=== PATIENT | male | born 1950 | race Caucasian/White ===

== ENCOUNTER 2017-02-13 22:02 | Emergency (ER) | payer OTHER ==
[~2017-02-13] VITALS: Ht 188 cm; Wt 108.0 kg
[2017-02-13 22:11] VITALS: TEMP 36.7; Ht 188 cm; Wt 108.0 kg
[2017-02-13] MEDS ORDERED: IBUPROFEN 800 MG TAB PO STA (22:37)
[2017-02-13] MEDS ORDERED: DEXAMETHASONE SOD INJ 10 MG/ML VIAL PO ONE (22:45)
[2017-02-13] MEDS ORDERED: LEVO75TA PO (23:13)
--- NOTE | 2017-02-13 23:14 | EMERGENCY ROOM VISIT NOTE ---
History Report prepared by Kenyetta: Jahaira Willard Under the Supervision of: Dr. Baldev Marroquin M.D. First contact with patient: 22:17 Chief Complaint: BACK PAIN Stated Complaint: BACK PAIN, LEFT LEG NUMB History of Present Illness The patient is a 66 year old male who presents to the Emergency Room with complaints of worsening back pain that started earlier today. The patient rates his pain a 7/10 in severity. He states he has a history of back pain but he thought it was getting better. The patient states he was doing normal every day activities and he felt the pain coming on. He notes the pain kept getting worse throughout the day. He has an appointment with Dr. Burton Monday. The patient states he stretches and does an inversion exercise every day. He notes that he had cataract surgery on his left eye last Monday02/07/17 and on his right eye 01/08/17. Ever since the surgery, he has stopped doing the inversion exercises. The patient states that the pain extended down his leg and wrapped around to his left testicle. He notes "it feels like someone punched me in the testicles". He reports that his left leg feels weak and numb. Whenever he wants to walk somewhere, he has to get on his hands and knees because he is unable to walk secondary to the numbness of his left leg. The patient states he has not taken any medication for his pain. He denies any urine or bowel changes. Source of History: patient Onset: earlier today Position: back Symptom Intensity: 7/10 Timing: worsening Associated Symptoms: + weakness, + numbness, No diarrhea, No urinary symptoms Review of Systems See HPI for pertinent positives and negatives. A total of ten systems were reviewed and were otherwise negative. Family History No pertinent family history Social History Smoking Status: Never Smoker Alcohol Use: occasionally Marital Status: single Housing Status: lives alone Current/Historical Medications Scheduled Alendronate/Cholecalciferol (Fosamax+D 70MG/2800 Iu), 1 TABLET PO WK Cyanocobalamin (Vitamin B-12 1000 Mcg), 1,000 MCG PO DAILY Levothyroxine Sodium (Synthroid), 75 MCG PO DAILY Scheduled PRN Ibuprofen Tab (Motrin), 800 MG PO Q8H PRN for Pain Allergies Coded Allergies: No Known Allergies (Unverified , 02/13/17) Physical Exam Vital Signs Date Time Temp Pulse Resp B/P (MAP) Pulse Ox O2 Delivery O2 Flow Rate FiO2 02/14/17 01:39 89 18 144/76 93 Room Air 02/13/17 22:11 36.7 90 18 203/92 97 Room Air Physical Exam GENERAL: Awake, alert, well-appearing, in no distress HENT: Normocephalic, atraumatic. Oropharynx unremarkable. EYES: Normal conjunctiva. Sclera non-icteric. NECK: Supple. No nuchal rigidity. FROM. No JVD. RESPIRATORY: Clear to auscultation. CARDIAC: Regular rate, normal rhythm. Extremities warm and well perfused. Pulses equal. ABDOMEN: Soft, non-distended. No tenderness to palpation. No rebound or guarding. No masses. RECTAL: deferred MUSCULOSKELETAL: Chest examination reveals no tenderness. Mild tenderness to left lumbar area with radiation distally in sciatic distribution. No joint edema. LOWER EXTREMITIES: 5/5 strength and SILT in bilateral lower extremities including 5/5 strength L5, great toe. NEURO: Normal sensorium. No sensory or motor deficits noted. SKIN: No rash or jaundice noted. : No testicular pain on palpation. Likely hydrocele in right scrotum, which transilluminates. Cremaster intact. No hernias. Medical Decision & Procedures ER Provider Diagnostic Interpretation: STATrad: Preliminary Findings Only See Final Report For Complete Findings MRI L SPINE : Comparison: None Impression: No acute fracture or dislocation. Mild multilevel canal stenosis secondary to posterior disc bulges and facet arthropathy/ligamentous hypertrophy. Left L3-L4, left foraminal disc bulge causes moderate left foraminal narrowing. Disc/osteophytes and facet arthropathy/ligamentous hypertrophy cause mild foraminal narrowings at other levels. Annular fissure at L4-L5. Comment: Vertebral bodies are normal in height and alignment. Moderate intervertebral disc space narrowing at L5-S1 Degenerative endplate changes and posterior disc/osteophyte complex at L5-S1. Conus ends at L1. Heterogeneity of marrow signal with small likely hemangiomas. Medications Administered Medications (Trade) Dose Ordered Sig/Moisés Route Start Time Stop Time Status Last Admin Dose Admin Ibuprofen (Motrin Tab) 800 mg NOW STAT PO 02/13/17 22:37 02/13/17 22:39 DC 02/13/17 22:45 800 MG Dexamethasone Sodium Phosphate (Decadron Inj) 10 mg NOW ONCE PO 02/13/17 22:45 02/13/17 22:46 DC 02/13/17 22:47 10 MG ED Course 2216: The patient was evaluated in room C3. A complete history and physical exam was performed. 2236: Ibuprofen 800 mg PO. 2244: Decadron Inj 10 mg PO. 3: I reassessed the patient. He states that he lost balance in the bathroom and "lowered himself to the ground". He notes that he was able to get himself back up. 226: I reevaluated the patient. Discussed results and discharge instructions: He verbalized understanding and agreement. The patient is ready for discharge. Medical Decision I reviewed the patient's past medical history, medications, and the nursing notes as described above. Differential diagnosis includes but is not limited to: lumbar sacral radiculopathy, muscular strain, soft tissue injury. The patient is a 66 y/o gentleman with a pmhx of chronic back pain, followed by spine, Dr. Burton who presents to the ED with worsening of his chronic lumbar pain with radiation of pain and numbness to his left leg. Denies bowel incontinence or bladder retention. Patient drank 2 beers prior to coming to ED to calm his anxiety about going to the hospital and since feels his pain has improved. On exam the patient has mild left lumbar ttp with extension distally in the sciatic distribution. 5/5 stength and SILT BLE. L5 intact with 5/5 strength great toe. exam with right hydrocoele, which transilluminates and otherwise testicles/epididymis nttp. Cremaster intact. Initial plan for pain control and plan for d/c however then patient reported to RN that he walked to the bathroom and forgot that is leg hurt/felt numb and fell to the ground but in a controlled manner and denies hitting his head. I recommend to patient we perform and head and cspine CT given his intoxication however patient refused adamant that he did not hit his head. Given the patient did not have any new signs of trauma and patient with capacity despite intoxication CT deferred. However, given patient's fall and report of weakness MRI ordered. Prelim STATrad read shows mild multilevel canal stenosis secondary to posterior disc bulges and facet arthropathy/ligamentous hypertrophy. Patient feeling improved. Findings and plan for follow-up reviewed with patient. Patient agreeable and d/c 'd per discharge instructions. Medication Reconcilliation Current Medication List: was personally reviewed by me Blood Pressure Screening Patient's blood pressure: Elevated blood pressure Blood pressure disposition: Elevated BP felt to be situational Impression Primary Impression: Radiculopathy of lumbar region Scribe Attestation The scribe's documentation has been prepared under my direction and personally reviewed by me in its entirety. I confirm that the note above accurately reflects all work, treatment, procedures, and medical decision making performed by me. Departure Information Dispostion Home / Self-Care Prescriptions Ibuprofen Tab (MOTRIN) 800 Mg Tab 800 MG PO Q8H Y for Pain for 7 Days, #21 TAB Prov: Baldev Marroquin M.D. 02/14/17 Referrals Gaston Walsh M.D. (PCP) Patient Instructions Lumbar Radiculopathy, My [facility] Additional Instructions Please follow up with your automotive parts specialist, Dr. Burton, as scheduled on Monday for re-evaluation. Otherwise, your exam and MRI did not show signs of an emergent condition at this time. Ibuprofen for pain as directed. Heating pad at 20 minute intervals throughout the day for muscle relaxation. Modifying your physical activity as your symptoms allow. Return to the emergency department for worsening symptoms as described in the accompanying instructions.
[2017-02-13] MEDS ORDERED: CYAN10004 PO (23:17)
[2017-02-13] MEDS ORDERED: FSMD/70 PO (23:17)
[2017-02-14 01:39] VITALS: BP 144/76; PULSE 89; O2SAT 93
[2017-02-14] MEDS ORDERED: IBUP-1451 PO (02:18)
--- NOTE | 2017-02-14 08:07 | DIAGNOSTIC IMAGING REPORT ---
MRI OF THE LUMBAR SPINE WITHOUT IV CONTRAST CLINICAL HISTORY: Chronic low back pain. Left lower extremity radiculopathy. COMPARISON STUDY: No priors. TECHNIQUE: MRI of the lumbar spine is performed utilizing various T1 and T2-weighted sequences in the axial and sagittal planes. IV contrast was not administered for this examination. FINDINGS: Lumbar spine: Vertebral body height and alignment are maintained throughout the lumbar spine. Marrow signal intensity is heterogeneous. There is straightening of the lumbar lordosis. No evidence of spondylolysis is seen. The transverse and spinous processes are intact as visualized. No destructive bony lesion is identified. Advanced chronic degenerative endplate change is seen at L5-S1. Mild chronic degenerative endplate change is seen at the remaining lumbar levels. No significant endplate edema is identified. Small anterior osteophytes are observed. Intervertebral discs: Degenerative disc desiccation is seen throughout the lumbar spine. Advanced loss of height is seen at L5-S1. Spinal cord: The partially imaged spinal cord is normal in morphology and signal intensity. The conus medullaris terminates at the T12-L1 interspace. The nerve roots of the cauda equina are normal in morphology. L1-L2: Unremarkable. L2-L3: Unremarkable. L3-L4: There is a lateral disc extrusion on the left. This obliterates the left neural foramen and impinges on the exiting left L3 nerve root. There is minimal central canal narrowing at this level with a minimum AP diameter of 9 mm. The right neural foramen is patent. L4-L5: There is minimal posterior disc bulge with annular fissure. This causes minimal acquired compromise of the central canal. The minimum AP diameter measures 8.5 mm. There is minimal subarticular stenosis. The neural foramina are patent. L5-S1: There is minimal disc bulge. There is no significant acquired compromise of the central canal. There is bilateral subarticular stenosis, with probable impingement on the exiting right L5 nerve root. Sacrum: Visualized sacrum is normal in morphology and signal intensity. Soft tissues: The paraspinous soft tissues are within normal limits. The partially imaged retroperitoneal structures are grossly unremarkable but incompletely assessed. IMPRESSION: 1. There is a left lateral disc extrusion at L3-L4 which obliterates the left neural foramen and impinges on the exiting left L3 nerve root. 2. Lumbosacral spondylosis at additional levels as detailed above. See discussion for level by level analysis. 3. Degenerative disc disease and chronic endplate change as above. No destructive bony lesion is seen. Dictated: 02/14/2017 7:00 AM Transcribed: 02/14/2017 8:07 AM [email or web address] Electronically signed by: Jarad Hunter M.D. 02/14/2017 8:14 AM Dictated Date/Time: 02/14/2017 7:00 AM
== END 2017-02-14 02:32 | disposition home or self-care (01) ==
LOC: C.EDB 22:04 → C.EDC 02-14 02:32
DX: M54.16 Radiculopathy, lumbar region (principal); G89.29 Other chronic pain; R03.0 Elevated blood-pressure reading, without diagnosis of hypertension

== ENCOUNTER → 2017-11-17 | Outpatient (CLI) | payer OTHER ==
[~2017-11-17] MED LIST: CYAN10004 PO; FSMD/70 PO; LEVO75TA PO
--- NOTE | 2017-11-17 15:59 | DIAGNOSTIC IMAGING REPORT ---
ULTRASOUND TESTES AND SCROTUM CLINICAL HISTORY: Scrotal pain. COMPARISON STUDY: No priors. TECHNIQUE: Real-time, grayscale, and color Doppler sonography of the testes and scrotum is performed. Images are reviewed in the transverse and longitudinal planes. FINDINGS: The testes are normal in size and homogeneous in echotexture. The right testis measures 4.8 x 2.4 x 2.9 cm and the left testis measures 4.3 x 2.3 x 3.1 cm. No intratesticular mass is seen. Scattered microliths are incidentally noted. Testicular blood flow is normal and symmetric. Normal Doppler waveforms are identified in both testes. The epididymal heads are normal in appearance. The right epididymal head measures 1.3 cm in length and the left epididymal head measures 2.0 cm in length. There are large bilateral epididymal head cysts. The largest on the left measures up to 2.8 cm and the largest on the right measures up to 1.6 cm. There is a large right-sided hydrocele with an estimated volume of 172 cc. This measures up to 9 cm. No left-sided hydrocele or varicocele is seen. A reducible fat-containing inguinal hernia is seen on the right. IMPRESSION: 1. No acute abnormality is identified. 2. Large right-sided hydrocele. 3. There are large bilateral epididymal head cysts. 4. There is a fat-containing right inguinal hernia. Electronically signed by: Jarad Hunter M.D. 11/17/2017 3:57 PM Dictated Date/Time: 11/17/2017 3:55 PM
== END | disposition home or self-care (01) ==
LOC: C.ULTRBC 14:46
PROVIDERS: ATTEND Urology
DX: N50.89 Other specified disorders of the male genital organs (principal)

== ENCOUNTER 2018-09-03 10:07 | Inpatient (IN) ==
--- NOTE | 2018-08-24 09:31 | Anesthesiology Consultation ---
Date of Service August 24, 2018 Assessment & Plan (1) Encounter for pre-operative examination: Chart Review Chart Review: Acceptable Risk for Surgery and Patient NOT seen in Pre Admission Testing Consults Requested none History Surgery Operation Date: 09/03/18 11:35 Proposed Procedures p L3-S1 Decompression and Fusion, Spinal Cord Monitoring - Alan Burton DO Height/Weight Height: 6 ft 2 in Weight: 104.326 kg Allergies Allergy/AdvReac Type Severity Reaction Status Date / Time No Known Allergies Allergy Unverified 08/14/18 10:21 Medications Home Medications Medication Instructions Recorded Confirmed Last Taken 5-hydroxytryptophan (5-HTP) [5-HTP] 100 mg PO DAILY 08/14/18 08/14/18 Unknown Jegbog-L-Avszmgftx 1 dose PO DAILY 08/14/18 08/14/18 Unknown Fish Oil 1 dose PO DAILY 08/14/18 08/14/18 Unknown Magalie 1 dose PO DAILY 08/14/18 08/14/18 Unknown Probiotic 1 dose PO DAILY 08/14/18 08/14/18 Unknown Vitamin D3 1 dose PO DAILY 08/14/18 08/14/18 Unknown alprazolam [Xanax] 0.25 mg PO QAM 08/14/18 08/14/18 Unknown coQ10 (ubiquinol) 200 mg PO QPM 08/14/18 08/14/18 Unknown cyanocobalamin (vitamin B-12) 1,000 mcg PO DAILY 08/14/18 08/14/18 Unknown gemfibrozil 600 mg PO BID 08/14/18 08/14/18 Unknown ginkgo biloba 1 dose PO DAILY 08/14/18 08/14/18 Unknown levothyroxine [Synthroid] 50 mcg PO QAM 08/14/18 08/14/18 Unknown magnesium 1 dose PO QAM 08/14/18 08/14/18 Unknown vitamin B complex-folic acid 1 dose PO DAILY 08/14/18 08/14/18 Unknown Social History Smoking Status: Never smoker Do You Dip or Chew Tobacco: No Hx Alcohol Use: Yes Alcohol type: beer alcohol intake frequency: 0-2 drinks per day Hx Substance Use: No substance use type: does not use Testing Electrocardiogram Date: 08/16/18 Findings: + NSR @ (rate 84) and + NSST changes Laboratory Results 08/07/18: WBC 5.0, HGB,15.4, HCT 45.9, PLT 231 Sodium 142, Potassium 4.2, Chloride 106, C02 28 BUN 20, Corporate Development Intern 1.1
[~2018-09-03 10:07] MED LIST changes: +ACETAMINOPHEN 500 MG TAB PO SCH; +CEFAZOLIN 2000MG 2,000 MG/15 ML SYR IV SCH; -CYAN10004 PO; +CeleBREX 200 MG CAP PO SCH; -FSMD/70 PO; +GABAPENTIN 300 MG PO SCH; +HYDROmorphone INJ 2 MG/ML SYR/VIAL ONE; -LEVO75TA PO; +MIDAZOLAM HCL 1 MG/ML 2ML VIAL ONE; +fentaNYL citrate 100 MCG/2 ML VIAL ONE
--- NOTE | 2018-09-03 10:44 | History & Physical Bridge Note ---
Date of Service September 03, 2018 History & Physical Bridge Note I have examined the patient, reviewed the History & Physical and in the interval since the performance of the History & Physical I have noted the following changes of clinical significance: no changes noted
--- NOTE | 2018-09-03 10:45 | History & Physical Report ---
Date of Service September 03, 2018 Assessment & Plan (1) Spinal stenosis, lumbar region with neurogenic claudication: L3-S1 decompression and fusion Present on Admission?: Yes History of Present Illness Chief Complaint: Back and leg pain Primary Care Provider: Gaston Walsh This is a 60-year-old male who presents with chronic persistent back and bilateral leg pain. After failing extensive course of nonoperative care is here for surgical intervention. Allergies Allergy/AdvReac Type Severity Reaction Status Date / Time No Known Allergies Allergy Unverified 08/14/18 10:21 Home Medications Home Medications Medication Instructions Recorded Confirmed Type 5-hydroxytryptophan (5-HTP) [5-HTP] 100 mg PO DAILY 08/14/18 08/14/18 History Mfvgyn-E-Lsvdawshc 1 dose PO DAILY 08/14/18 08/14/18 History Fish Oil 1 dose PO DAILY 08/14/18 08/14/18 History Magalie 1 dose PO DAILY 08/14/18 08/14/18 History Probiotic 1 dose PO DAILY 08/14/18 08/14/18 History Vitamin D3 1 dose PO DAILY 08/14/18 08/14/18 History alprazolam [Xanax] 0.25 mg PO QAM 08/14/18 08/14/18 History coQ10 (ubiquinol) 200 mg PO QPM 08/14/18 08/14/18 History cyanocobalamin (vitamin B-12) 1,000 mcg PO DAILY 08/14/18 08/14/18 History gemfibrozil 600 mg PO BID 08/14/18 08/14/18 History ginkgo biloba 1 dose PO DAILY 08/14/18 08/14/18 History levothyroxine [Synthroid] 50 mcg PO QAM 08/14/18 08/14/18 History magnesium 1 dose PO QAM 08/14/18 08/14/18 History vitamin B complex-folic acid 1 dose PO DAILY 08/14/18 08/14/18 History Past Med/Surg History Social History Preferred Language: Angolan Communication Ability: Effective Marketing And Public Relations Manager Required: No Beliefs That Will Affect Care: None Current Living Situation: Alone Other Information That Helps Us Care for You: No Feels Safe at Home: Yes Safety Concerns: Feels Safe At This Time Smoking Status: Never smoker Do You Dip or Chew Tobacco: No Second Hand Exposure: No Hx Alcohol Use: Yes Alcohol type: beer Hx Substance Use: No Physical Exam Vital Signs (Past 24 Hours): Patient Physical Exam: Patient is alert and oriented neurologically intact.
[2018-09-03] MEDS: LR 15ML/HR IV SCH ×2 (11:00→11:30)
[2018-09-03] MEDS ORDERED: BUPIVACAINE/EPINEPHRINE 0.5% MPF 1:200,000 30 ML VIAL ONE (11:09)
[2018-09-03] MEDS ORDERED: BACITRACIN INJ 50,000 UNIT VIAL ONE (11:09)
[2018-09-03] MEDS ORDERED: PROPOFOL IV EMULSION 10 MG/ML 100 ML VIAL IV ONE (11:10)
[2018-09-03] MEDS ORDERED: fentaNYL citrate 100 MCG/2 ML VIAL ONE ×4 (11:57→13:51)
--- OUTSIDE RECORDS SUMMARY | 2018-09-03 11:57 | External Medical Summary | Continuity of Care Document ---
:1950 Author Name Cam Barr, Provider Address Unavailable Unavailable , Care Team Providers Name Role Phone Jun Heart [email or web address] [place], [place] ELIAN LOERA Unavailable Unavailable Problems Spermatocele (608.1) (N43.40) Hydrocele (603.9) (N43.3) Scrotal swelling (608.86) (N50.89) Epididymal mass (608.89) (N50.9) BPH (benign prostatic hyperplasia) (600.00) (N40.0) Allergies and Adverse Reactions Allergy history not documented Medications Medications not documented Procedures Procedures not documented Immunizations Immunizations not documented Plan of Treatment Planned Encounters Appointment; Jun Heart M.D. Start: 20-Nov-2018 16:00 Request Planned Observations Planned Goals not documented Results No Known Results Results not documented Encounters Appointment; Jun Heart M.D. 21-Nov-2017 16:10 Encounter Diagnosis: Problem not documented Appointment; Jun Heart M.D. 16-Nov-2017 10:30 Encounter Diagnosis: Problem not documented Appointment; Jun Heart M.D. 20-Nov-2018 16:00 Encounter Diagnosis: Problem not documented
[2018-09-03] MEDS ORDERED: FLOSEAL HEMOSTATIC MATRIX 10ML TOP ONE (12:12)
[2018-09-03] MEDS ORDERED: SODIUM CHLORIDE 0.9% INJ 10 ML VIAL ONE (12:54)
[2018-09-03] MEDS ORDERED: HYDROmorphone INJ 2 MG/ML SYR/VIAL ONE ×2 (13:02→13:59)
[2018-09-03] MEDS ORDERED: ALBUMIN HUMAN 5% 12.5 GM/250 ML VIAL IV ONE (13:02)
[2018-09-03] MEDS ORDERED: THROMBIN 5000 UNITS KIT TOP STA (13:46)
[2018-09-03 13:48] LABS: Hematocrit (blood only) 37.8 % (42-52)
--- NOTE | 2018-09-03 13:58 | Operative Report ---
Post Operative Report Pre & Post Diagnosis Operation Date: 09/03/18 11:25 Pre-Op Diagnosis: Lumbar spinal stenosis with neurogenic claudication Post-Op Diagnosis: Same Procedure Operation Date: 09/03/18 11:25 Actual Procedures #1 lumbar decompression bilateral medial facetectomies and foraminotomies L2-3 L3-4 L4-5 per #2 posterior spinal fusion L3-4 L4-5 L5-S1. #3 placement posterior segmental instrumentation L3-4 L4-5 L5-S1. #4 interbody fusion L3-4 L4-5. #5 placement of peek cage 12 x 26 mm at L3-4 and 13 x 26 mm at L4-5. #6 placement of local autograft in the posterior lateral gutters per #7 placement infuse collagen sponge bone mass graft in the posterior lateral gutters and ostial amp and interbody space. Surgeon Alan Burton, Medical Office Technology Instructor Pebbles Chandra Estimated Blood Loss 1,000 Findings See Below Patient had blood loss in excess of 1000 cc prolonged procedure time by at least 50%. Specimens None Indications This is a 60-year-old male who presents with worsening neurogenic claudication. After failing extensive course of nonoperative care is here for surgical intervention. Description of Procedure Patient was met with identified and informed consent obtained. He was then taken to the operative suite underwent intubation and placed in a prone position the Juan table on top of the Rafi frame. All bony prominences well-padded eyes inspected to ensure no external pressure placed upon. This point the lumbar spine was prepped and draped in normal sterile fashion. Sharp dissection with the assistance of Bovie cautery was performed down to and exposing the lamina and transverse processes of L3-L4-L5 and sacral ala bilaterally. From a caudal to cephalad fashion complete laminectomy of L4 L3 and partial laminectomy of L2 was performed including bilateral medial facetectomies and foraminotomies addressing severe stenosis. Pedicle screws were then placed in L3-L4-L5 and S1 levels bilaterally with assistance of fluoroscopy the appropriate size vimal placed. By way of a transforaminal approach on the left complete discectomy of L4-5 was performed in plate graded to subcortical bleeding bone and a 13 x 26 mm peek cage filled with ostium bone graft tapped in position. Then proceeded to L3-[address] of a transforaminal approach on the left complete discectomy performed in plate graded to subcortical bleeding bone and a 12 x 26 mm peek cage filled with ostium bone graft tapped in position. The rods were then locked in final position bilaterally. The transverse processes of L3-L4-L5 and the sacral ala bur to subcortical bleeding bone. Infuse collagen sponge mass graft and local autograft placed in the posterior lateral gutters. 15 round ISAIAS drain inserted. The incision was then closed with 1 Vicryl in the fascia 2-0 Vicryl subcutaneous and 4-0 Monocryl for final skin closure. Steri- Strip sterile dressings placed. Patient will continue PACU stable condition. Please note Pebbles Chandra present all the entire procedure involved in patient positioning complex portions of the surgery and final skin closure. Lastly spinal cord monitoring was utilized throughout the procedure and no changes were noted. I attest to the content of the Intraoperative Record and any orders documented therein. Any exceptions are noted below.
[2018-09-03] MEDS ORDERED: ROCURONIUM BROMIDE 10 MG/ML 5 ML VIAL ONE (13:59)
[2018-09-03] MEDS ORDERED: GLYCOPYRROLATE 0.2 MG/ML VIAL ONE (13:59)
[2018-09-03] MEDS ORDERED: ePHEDrine sulfate 50 MG/ML SYR ONE (13:59)
[2018-09-03] MEDS ORDERED: LARYING-O-JET KIT (LTA) ONE (13:59)
[2018-09-03] MEDS ORDERED: PHENYLEPHRINE 100MCG/ML 5ML SYR ONE (13:59)
[2018-09-03] MEDS ORDERED: NEOSTIGMINE METHYLSULFATE 1 MG/ML 10ML VIAL ONE (13:59)
[2018-09-03] MEDS ORDERED: LIDOCAINE HCL 2% 2 ML VIAL/AMP(20MG/ML) INFIL ONE (13:59)
[2018-09-03] MEDS ORDERED: DEXAMETHASONE SOD INJ 4 MG/ML VIAL ONE (13:59)
[2018-09-03] MEDS ORDERED: ePHEDrine sulfate 50 MG/ML AMP ONE (13:59)
[2018-09-03] MEDS ORDERED: PROPOFOL IV EMULSION 10 MG/ML 20 ML VIAL IV ONE (13:59)
[2018-09-03] MEDS ORDERED: ONDANSETRON INJ 2 MG/ML 2 ML VIAL ONE ×2 (13:59)
[2018-09-03] MEDS ORDERED: KETOROLAC 30 MG/ML VIAL ONE (13:59)
--- NOTE | 2018-09-03 14:04 | Fluoroscopy Report ---
FL lumbar spine 2-3V CLINICAL HISTORY: L3-S1 DECOMP/FUSIONlumbar fusion COMPARISON STUDY: None FLUOROSCOPY TIME: 33 seconds NUMBER OF FLUOROSCOPIC IMAGES: 4 FINDINGS: Findings consistent with an L3-S1 laminectomy and fusion. Alignment is anatomic. IMPRESSION: L3-S1 laminectomy and fusion. The above report was generated using voice recognition software. It may contain grammatical, syntax or spelling errors. Electronically signed by: Prem Craft M.D. 09/03/2018 2:03 PM
[2018-09-03] MEDS ORDERED: ONDANSETRON INJ 2 MG/ML 2 ML VIAL IV PRN ×2 (14:30→15:19)
[2018-09-03] MEDS ORDERED: LABETALOL HCL IV 5 MG/ML 20ML IV PRN (14:30)
[2018-09-03] MEDS ORDERED: PROMETHAZINE HCL 12.5 MG in SODIUM CHLORIDE 0.9% 50 ML IV PRN ×2 (14:30→15:19)
[2018-09-03] MEDS ORDERED: FLUMAZENIL 0.1 MG/1 ML 10 ML VIAL IV PRN (14:30)
[2018-09-03] MEDS ORDERED: ePHEDrine sulfate 50 MG/ML AMP IV PRN (14:30)
[2018-09-03] MEDS ORDERED: HYDROmorphone INJ 1 MG/ML SYRINGE IV PRN (14:30)
[2018-09-03] MEDS ORDERED: ATROPINE SULFATE 0.1 MG/ML 10ML SYR IV PRN (14:30)
[2018-09-03] MEDS ORDERED: NALOXONE HCL 0.4 MG/1 ML VIAL/CARP IV PRN (14:30)
--- NOTE | 2018-09-03 14:56 | Anesthesiology Progress Note ---
Date of Service September 03, 2018 Anesthesia Post Procedure Vital Signs Vital Signs: Temp Pulse Pulse Resp BP Pulse Ox 09/03/18 14:50 72 16 153/73 H 94 09/03/18 14:40 36.5 C 78 16 143/71 H 95 09/03/18 14:30 82 16 155/74 H 97 09/03/18 14:20 87 16 170/87 H 97 09/03/18 14:14 36.4 C L 86 14 147/64 H 96 09/03/18 10:56 37 C 90 18 172/94 H 98 Pain Intensity Lower Back: Pain Intensity: 6 Transfer of Care Handoff Completed per policy Notes Mental Status: alert / awake / arousable Patient Amnestic to Procedure: Yes Nausea / Vomiting: adequately controlled Pain: adequately controlled Airway Patency, RR, SpO2: stable & adequate BP & HR: stable & adequate Hydration State: stable & adequate Anesthetic Complications: no major complications apparent
[2018-09-03] MEDS ORDERED: MAGNESIUM HYDROXIDE SUSP 30 ML UDC PO PRN (15:19)
[2018-09-03] MEDS ORDERED: LORazepam 0.5 MG/1 ML VIAL IV PRN (15:19)
[2018-09-03] MEDS ORDERED: FAMOTIDINE 20 MG TAB PO PRN (15:19)
[2018-09-03] MEDS ORDERED: OXYCODONE HCL IR 5 MG TAB (IMMEDIATE RELEASE) PO PRN (15:19)
[2018-09-03] MEDS ORDERED: BISACODYL 10 MG SUPP PR PRN (15:19)
[2018-09-03] MEDS ORDERED: DO NOT ADMINISTER FLU VACCINE PRN (15:19)
[2018-09-03] MEDS ORDERED: ALUMINUM/MAGNESIUM SUSP 30 ML UDC PO PRN (15:19)
[2018-09-03] MEDS ORDERED: DO NOT ADMINISTER PNEUMOCOCCAL VACCINE PRN (15:19)
[2018-09-03] MEDS ORDERED: ONDANSETRON 4 MG TAB PO PRN (15:19)
[2018-09-03] MEDS ORDERED: ACETAMINOPHEN 1,000 MG/100 ML VIAL IV PRN (15:19)
[2018-09-03] MEDS ORDERED: HYDROmorphone INJ 0.5 MG/0.5 ML SYR IV PRN (15:19)
[2018-09-03] MEDS ORDERED: METOCLOPRAMIDE HCL INJ 5 MG/ML 2 ML VIAL IV PRN (15:19)
[2018-09-03] MEDS ORDERED: SOD PHOSPHATE/SOD BIPHOSPHATE ENEMA 132 ML BTL PR PRN (15:19)
[2018-09-03] MEDS: LACTATED RINGER'S 1,000 ML IV SCH ×2 (17:39→23:58)
[2018-09-03] MEDS: KETOROLAC TROMETHAMINE 15 MG/ML VIAL IV SCH ×2 (17:39→23:58)
[2018-09-03] MEDS: DOCUSATE SODIUM/SENNA 50/8.6MG TAB PO SCH (20:55)
[2018-09-03] MEDS: GEMFIBROZIL 600 MG TAB PO SCH (20:55)
[2018-09-03] MEDS: CEFAZOLIN 2000MG 2,000 MG/15 ML SYR IV SCH (20:55)
[2018-09-03] MEDS ORDERED: NON-FORMULARY MEDICATION (Coq10 (Ubiquinol) 200 MG) PO SCH (21:00)
[2018-09-04] MEDS: LORazepam 0.5 MG TAB PO PRN (00:01)
[2018-09-04] MEDS: LACTATED RINGER'S 1,000 ML IV SCH (04:57)
[2018-09-04] MEDS: CEFAZOLIN 2000MG 2,000 MG/15 ML SYR IV SCH (05:03)
[2018-09-04] MEDS: KETOROLAC TROMETHAMINE 15 MG/ML VIAL IV SCH ×2 (05:03→12:14)
[2018-09-04] MEDS: POLYETHYLENE (MIRALAX) 17 GM PACK PO SCH ×3 (05:04→17:37)
[2018-09-04] MEDS: LEVOTHYROXINE SODIUM 50 MCG TABLET PO SCH (05:04)
[2018-09-04 06:23] LABS: Basophils # (auto) 0.01 K/uL (0-0.2); Basophils % (auto) 0.1 %; Hematocrit (blood only) 29.5 % (42-52); Hemoglobin 10.8 g/dL (14.0-18.0); Immature Granulocytes # (auto) 0.03 K/uL (0.00-0.02); Immature Granulocytes % (auto) 0.3 %; Lymphocytes # (auto) 2.33 K/uL (1.2-3.4); Mean Corpuscular Hgb Conc 36.6 g/dL (32-36); Mean Corpuscular Volume 89.1 fL (80-100); Mean Platelet Volume 9.3 fL (7.4-10.4); Monocytes # (auto) 0.81 K/uL (0.11-0.59); Monocytes % (auto) 7.3 %; Neutrophils # (auto) 7.94 K/uL (1.4-6.5); Neutrophils % (auto) 71.3 %; Platelet Count 170 K/uL (130-400); RDW Coefficient of Variation 12.5 % (11.5-14.5); RDW Standard Deviation 40.3 fL (36.4-46.3); Red Blood Count 3.31 M/uL (4.7-6.1); White Blood Count 11.12 K/uL (4.8-10.8)
[2018-09-04 06:55] LABS: BUN Creatinine Ratio 16.7 (10-20); Calcium 9.1 mg/dl (8.5-10.1); Creatinine Clr Calc Pharmacy 89.3 ml/min; Est GFR (African American) 87.1; Est GFR (Non-African American) 75.2; Potassium 3.9 mmol/L (3.5-5.1)
--- NOTE | 2018-09-04 08:40 | Anesthesiology Progress Note ---
Date of Service September 04, 2018 Anesthesia Post Procedure Vital Signs Vital Signs: Temp Pulse Pulse Pulse Resp BP Pulse Ox 09/04/18 07:05 36.4 C L 80 16 115/65 91 09/04/18 03:07 36.7 C 89 14 120/62 95 09/03/18 23:03 35.5 C L 14 135/71 94 09/03/18 20:20 36.4 C L 85 16 148/82 H 94 09/03/18 18:21 36.4 C L 107 H 17 150/87 H 95 09/03/18 17:26 36.3 C L 93 H 16 139/66 95 09/03/18 16:15 36.3 C L 79 16 111/62 96 09/03/18 15:45 36.3 C L 73 16 117/58 L 97 09/03/18 15:10 36.3 C L 75 H 118/63 97 09/03/18 15:00 77 16 141/77 H 95 09/03/18 14:50 72 16 153/73 H 94 09/03/18 14:40 36.5 C 78 16 143/71 H 95 09/03/18 14:30 82 16 155/74 H 97 09/03/18 14:20 87 16 170/87 H 97 09/03/18 14:14 36.4 C L 86 14 147/64 H 96 09/03/18 10:56 37 C 90 18 172/94 H 98 Pain Intensity Lower Back: Pain Intensity: 6 Transfer of Care Handoff Completed per policy Notes Mental Status: alert / awake / arousable Patient Amnestic to Procedure: Yes Nausea / Vomiting: adequately controlled Pain: improving with treatment Airway Patency, RR, SpO2: stable & adequate BP & HR: stable & adequate Hydration State: stable & adequate Anesthetic Complications: no major complications apparent and Pt Satisfied with anesthetic care
[2018-09-04] MEDS: CYANOCOBALAMIN 500 MCG TABLET (VITAMIN B-12) PO SCH (08:56)
[2018-09-04] MEDS: GEMFIBROZIL 600 MG TAB PO SCH ×2 (08:56→20:40)
[2018-09-04] MEDS: VITAMIN B COMPLEX TAB PO SCH (08:56)
[2018-09-04] MEDS ORDERED: CHOLECALCIFEROL 1,000 UNITS TAB PO SCH (09:00)
[2018-09-04] MEDS ORDERED: HYDROXYTRYPTOPHAN 100 MG PO SCH (09:00)
[2018-09-04] MEDS ORDERED: ACETYL CARNITINE PO SCH (09:00)
[2018-09-04] MEDS ORDERED: MAGNESIUM PO SCH (09:00)
[2018-09-04] MEDS: ALPRAZolam 0.5 MG TABLET PO SCH (09:01)
--- NOTE | 2018-09-04 12:54 | Orthopedic Progress Note ---
Date of Service September 04, 2018 Assessment & Plan (1) Spinal stenosis, lumbar region with neurogenic claudication: This time we will continue physical therapy monitor his ISAIAS output for discharge home in the next 2 days. Present on Admission?: Yes Subjective Back pain is controlled leg symptoms markedly improved. Physical Exam Physical Exam: Exam he has good strength testing appears comfortable. Results & Data Vital Signs (Past 12 Hours) Vital Signs Temp Pulse Resp BP Pulse Ox 09/04/18 11:51 36.5 C 76 18 139/71 97 09/04/18 07:05 36.4 C L 80 16 115/65 91 09/04/18 03:07 36.7 C 89 14 120/62 95
[2018-09-04] MEDS: DOCUSATE SODIUM/SENNA 50/8.6MG TAB PO SCH (20:40)
[2018-09-05] MEDS: ACETAMINOPHEN 500 MG TAB PO PRN ×2 (01:08→22:26)
[2018-09-05] MEDS: LORazepam 0.5 MG TAB PO PRN ×2 (01:08→22:26)
[2018-09-05] MEDS: LEVOTHYROXINE SODIUM 50 MCG TABLET PO SCH (05:32)
[2018-09-05] MEDS: TRAMADOL HCL 50 MG TABLET PO PRN ×2 (07:37→14:38)
[2018-09-05] MEDS: GEMFIBROZIL 600 MG TAB PO SCH ×2 (08:14→20:53)
[2018-09-05] MEDS: CYANOCOBALAMIN 500 MCG TABLET (VITAMIN B-12) PO SCH (08:15)
[2018-09-05] MEDS: VITAMIN B COMPLEX TAB PO SCH (08:15)
[2018-09-05] MEDS: ALPRAZolam 0.5 MG TABLET PO SCH (08:21)
[2018-09-05] MEDS: CHOLECALCIFEROL 1,000 UNITS TAB PO SCH (08:43)
--- NOTE | 2018-09-05 13:50 | Orthopedic Progress Note ---
Date of Service September 05, 2018 Assessment & Plan (1) Spinal stenosis, lumbar region with neurogenic claudication: This time we will continue physical therapy monitor his ISAIAS output anticipate discharge home tomorrow. Present on Admission?: Yes Subjective Patient's back pain is controlled leg symptoms improved. Physical Exam Physical Exam: On exam he appears comfortable. Is good strength testing. Results & Data Vital Signs (Past 12 Hours) Vital Signs Temp Pulse Resp BP Pulse Ox 09/05/18 12:08 36.4 C L 76 17 138/74 98 09/05/18 07:45 36.6 C 68 18 142/76 H 95
[2018-09-05] MEDS: DOCUSATE SODIUM/SENNA 50/8.6MG TAB PO SCH (20:53)
[2018-09-06] MEDS: LEVOTHYROXINE SODIUM 50 MCG TABLET PO SCH (05:39)
[2018-09-06] MEDS: ACETAMINOPHEN 500 MG TAB PO PRN ×2 (08:58→15:50)
[2018-09-06] MEDS: ALPRAZolam 0.5 MG TABLET PO SCH (08:58)
[2018-09-06] MEDS: GEMFIBROZIL 600 MG TAB PO SCH (08:59)
[2018-09-06] MEDS: VITAMIN B COMPLEX TAB PO SCH (08:59)
[2018-09-06] MEDS: CHOLECALCIFEROL 1,000 UNITS TAB PO SCH (08:59)
[2018-09-06] MEDS: CYANOCOBALAMIN 500 MCG TABLET (VITAMIN B-12) PO SCH (08:59)
[2018-09-06] MEDS: LORazepam 0.5 MG TAB PO PRN (15:50)
--- NOTE | 2018-09-06 15:51 | Discharge Summary ---
Date of Service September 06, 2018 Admission HPI Per Admitting Provider This is a 60-year-old male who presents with chronic persistent back and bilateral leg pain. After failing extensive course of nonoperative care is here for surgical intervention. Principal Diagnosis Lumbar spinal stenosis with neurogenic claudication Discharge Data Allergies Allergy/AdvReac Type Severity Reaction Status Date / Time No Known Allergies Allergy Verified 09/03/18 10:45 Consultations 09/03/18 15:19 Consult Case Management - Discharge Planning Routine Procedures Performed Operation Date: 09/03/18 11:25 Actual Procedures p L3-S1 Decompression and Fusion, Spinal Cord Monitoring - Alan Burton DO Ordered Studies 09/03/18 11:25 FL fluoroscopy <1hr Routine FL lumbar spine 2-3V Routine Hospital Course (1) Spinal stenosis, lumbar region with neurogenic claudication: Patient underwent multilevel lumbar decompression and fusion tolerated this well was taken to the orthopedic floor postoperative. Postop day 1 he was up and ambulating nicely. He progressed the postop day #2. ISAIAS drain decreasing appropriately. Subsequently discharged home on postop day #3. Discharge orders and instructions found in the chart for further review. Total Time Total Time Spent Total Time Spent (In Minutes): 20 minutes Discharge Plan Discharge Items Patient Disposition: Home - Self-Care Reason For Visit: LUMBAR SPINAL STENOSIS W/OUT NEUROGENIC CLAUDICATI Discharge Diagnosis: lumbar stenosis Discharge Goals: Decrease discomfort Activity: Per 'Additional Instructions' section Non-emergency contact: Primary Care Provider Call non-emergency contact if: you have any medication questions Follow-up/Referrals: Gaston Walsh [Primary Care Provider] - Diet: Regular Addtl Provider Instructions: ACTIVITY RECOMMENDATIONS: SELF CARE INSTRUCTIONS AFTER THORACIC/LUMBAR FUSIONS 1. You may walk to your tolerance. It is good exercise for your legs and back. Expect some back and intermittent leg aches and pains. 2. You may perform "counter-top" level activities (make a sandwich, sonia with a project, etc.). 3. No bending or lifting of more than 10 pounds or back twisting of any nature (roll like a log when turning in bed). 4. You may ride in a car for 20-30 minutes at a time. No driving until after your first visit with your doctor. 5. Frequent changes of position and restricting sitting to 30 minutes at a time will help limit the amount of back spasms and stiffness you may experience. 6. You may discontinue the use of ambulatory aids (cane, crutches, etc.) once your strength and confidence allow. 7. You may licensing engineer the shower and let water strike your incision when you arrive home at least once daily. Do not take a tub bath, sit in a hot tub or go into a swimming pool until after your first recheck in the office. SPECIAL CARE INSTRUCTIONS: VERY IMPORTANT TO READ AND REVIEW A. Your surgical incision has been closed with a cosmetic suture under the skin that will dissolve in about 6 weeks. In 14 days, you can use a pair of clean scissors and cut the suture that is left outside of the skin at the ends of your incision. 1. The small skin tapes can be removed 7 days after surgery if they have not fallen off by that point. 2. You may keep the wound open to air as much as possible to promote healing after post-op day number 5 unless told otherwise by your doctor. 3. If you think the wound looks like it is becoming infected (redness or worsening drainage) and/or you are experiencing fever, chill or worsening back pain and muscle spasms, contact the office so that we may evaluate you as soon as possible. B. Complications are uncommon, but please contact us if you have any signs or symptoms of: 1. wound infection (fever higher than 102.5 degrees F, redness, separation of wound, drainage, or increasing pain from the incision) 2. blood clots in legs (pain, swelling, redness and warmth in legs) 3. urinary tract infection (fever higher than 102.5 degrees F, burning upon urination or increased frequency of urination) 4. nerve problems (inability to walk on your toes or heels, numbness, loss of bowel or bladder control) 5. any other symptoms that concern you C. Please call the office at if you have any concerns or questions about your operation or recovery. D. No smoking! Smoking drastically decreases the chance of a solid fusion. E. Do not take any anti-inflammatory medications (Indocin, Advil, Motrin, Aspirin, Naprosyn, etc.) as these may inhibit the chance of a solid fusion. Tylenol is okay to take for pain. MANAGING PAIN AFTER SPINAL SURGERY 1. Narcotic medication is intended for short-term use and will be provided for surgical pain. Surgical pain usually lasts for a period of 4-6 weeks. Narcotic medication includes Percocet, Vicodin, Darvocet, Tylenol #3 or Lortab. 2. Longer-term pain is more appropriately treated with non-narcotic medication such as Tylenol ES. 3. Muscle spasm is not appropriately treated with narcotics. Muscle relaxers such as Soma, Flexeril or Skelaxin can be used along with Tylenol ES. 4. Remember that we all live with some "aches and pains". This is not unusual or uncommon after an injury or as we get older. a. Back pain is expected and may include muscle spasms for 4 to 6 weeks after surgery. The pain should gradually improve. If the pain worsens for no apparent reason, please contact the office. b. Intermittent leg pain may also be experienced and should not be concerned about unless it worsens for no apparent reason. If so, please contact the office. 5. We will provide appropriate medication within the normal guidelines of their prescribed use. We will also be very cautious and aware of potential abuse and extended duration of patients' medication needs. a. Pain medications are for your comfort and to assist with sleep and rest so that the tissue can heal. They are not provided in order to return to normal activity and should not be used through the day. To do so or worsening pain at night can result from ongoing tissue damage and development of tolerance to the prescribed medicine. 6. Please allow 2-3 days to process refills. Prescriptions will not be mailed but must be picked up at the office. FOLLOW UP VISIT: Keep your scheduled follow-up appointment. Any questions, please call the office at . Prescriptions: New tramadol 50 mg Tablet 50 mg PO Q4H PRN (Reason: Pain, Moderate) Qty: 30 RF: 0 oxycodone 5 mg Tablet 5 mg PO Q4H PRN (Reason: Pain, Severe) Qty: 30 RF: 0 Continued [id number] 1 dose PO DAILY RF: 0 alprazolam [Xanax] 1 mg Tablet 0.25 mg PO QAM RF: 0 gemfibrozil 600 mg Tablet 600 mg PO BID RF: 0 levothyroxine [Synthroid] 50 mcg Tablet 50 mcg PO QAM RF: 0 5-HTP 100 mg Capsule 100 mg PO DAILY RF: 0 coQ10 (ubiquinol) 200 mg Capsule 200 mg PO QPM RF: 0 cyanocobalamin (vitamin B-12) 1,000 mcg Capsule 1,000 mcg PO DAILY RF: 0 Fish Oil 1 dose PO DAILY RF: 0 Magalie 1 dose PO DAILY RF: 0 Probiotic 1 dose PO DAILY RF: 0 Vitamin D3 1 dose PO DAILY RF: 0 ginkgo biloba 1 dose PO DAILY RF: 0 magnesium 1 dose PO QAM RF: 0 vitamin B complex-folic acid 1 dose PO DAILY RF: 0 Stand-Alone Forms: [facility] Discharge Orders: Discharge Order (Routine); Ordered 09/06/18 Ordered By: Alan Burton Admission Data Admit Date/Time: 09/03/18 14:02 Attending Provider: Alan Burton Admit Provider: Alan Burton Primary Care Provider: Gaston Walsh Service: Surgical Services Other Interventions: Discharge Summary Assessment (RN) Last Done: 09/06/18 15:39
== END 2018-09-06 17:00 | disposition home or self-care (01) | DRG 455 ==
LOC: ASU 10:07 → 3E 14:02

== ENCOUNTER 2020-05-27 12:16 | Observation (INO) ==
[2020-05-27] MEDS ORDERED: SODIUM CHLORIDE 0.9% 1000ML 1,000 ML IV STA (12:57)
[2020-05-27] MEDS ORDERED: HYDROmorphone INJ 0.5 MG/0.5 ML SYR IV PRN (12:58)
[2020-05-27] MEDS ORDERED: ONDANSETRON INJ 2 MG/ML 2 ML VIAL IV SCH (13:00)
[2020-05-27 13:39] LABS: Hematocrit (blood only) 41.2 % (42-52); Hemoglobin 14.3 g/dL (14.0-18.0); Mean Corpuscular Hemoglobin 32.1 pg (25-34); Mean Corpuscular Hgb Conc 34.7 g/dL (32-36); Mean Corpuscular Volume 92.6 fL (80-100); Mean Platelet Volume 9.3 fL (7.4-10.4); Platelet Count 251 K/uL (130-400); RDW Coefficient of Variation 12.3 % (11.5-14.5); RDW Standard Deviation 42.1 fL (36.4-46.3); Red Blood Count 4.45 M/uL (4.7-6.1); White Blood Count 9.61 K/uL (4.8-10.8)
--- NOTE | 2020-05-27 13:43 | XRay Report ---
KUB HISTORY: L ureteral stone COMPARISON: Abdomen and pelvis CT 05/18/2020 FINDINGS: The bowel gas pattern is unremarkable. There are no dilated loops of small bowel to suggest an obstruction. The patient's left ureteral stone seen on the prior CT is is not identified on this study. This may have passed in the interval. No renal calculi. No definite ureteral calculi. Posteri or fusion hardware from L3 through S1 with pedicle screws and rods. Of note, the renal shadows are mo stly obscured by overlying bowel gas. No pneumoperitoneum or pneumatosis. IMPRESSION: No definite renal or ureteral calculi. ACT 112: Negative or not required by law. Electronically signed by: Brown Arndt M.D. 05/27/2020 1:42 PM
[2020-05-27 13:58] LABS: Albumin Level 3.4 gm/dl (3.4-5.0); BUN Creatinine Ratio 11.5 (10-20); Calcium 10.4 mg/dl (8.5-10.1); Creatinine Clr Calc Pharmacy 47.5 ml/min; Est GFR (African American) 41.8; Est GFR (Non-African American) 36.1; Potassium 4.2 mmol/L (3.5-5.1)
[2020-05-27 13:58] LABS: Appearance Urine Clear (Clear); Bilirubin Urine Negative (Negative); Blood Urine 2+ (Negative); Color Urine Yellow; Glucose Urine UA Negative (Negative); Ketones Urine Trace (Negative); Leukocyte Esterase Urine Trace (Negative); Nitrite Urine Negative (Negative); Protein Urine Trace (Negative); Specific Gravity Urine 1.027 (1.000-1.030); Urobilinogen Urine Negative (Negative); pH Urine 5.5 (4.5-7.5)
[2020-05-27 14:00] LABS: Albumin Globulin Ratio 0.9 (0.9-2); Bilirubin,Total 0.7 mg/dl (0.2-1); Total Protein 7.4 gm/dl (6.4-8.2)
[2020-05-27 14:25] LABS: Calcium Oxalate Crystals Urine Present (None Prsent); Epithelial Cell Urine 0-5 /lpf (0-5)
[2020-05-27 14:26] LABS: Bacteria Urine Negative (Negative)
--- NOTE | 2020-05-27 14:34 | Emergency Department Note ---
Impression & Plan Calculus of distal left ureter, Hydronephrosis of left kidney, Renal colic on left side ED Provider Note NAME: ZONIA GARNICA AGE: 70 SEX: M ARRIVES VIA: Walk-In INFORMANT:Patient ED PROVIDER(S): Alesia Dennis MD CHIEF COMPLAINT: L flank pain PLAN: Disposition: admission Condition: Good Referral: Hospitalist, urology MEDICAL DECISION MAKING: This pt was evaluated and appeared to be in no distress. IV access was obtained and lab work was drawn. PT states he has been trying to pass this kidney stone for several weeks. It was not visualized on KUB today therefore a CT was ordered. The stone moved to UVJ and there is now moderate hydronephrosis. UA is negative for infection. Pt states the pain comes and goes but has been keeping him awake, he has not been eating or drinking as he is nauseated. Case was d/w urology. Pt will be evaluated by medicine and consult by urology for further management. He is aware of the plan and agrees. Triage Nursing notes reviewed. Prior medical records reviewed. Vital Signs: reviewed and remarkable for HTN Differential diagnosis: Renal colic, UTI, appendicitis, diverticulitis, mesenteric ischemia, aortic pathology, infections, inflammatory bowel disease, PUD, biliary pathology, as well as other pathologies. ER treatment provided: IV NSS IV zofran Laboratory studies: See below Imaging studies: KUB HISTORY: L ureteral stone COMPARISON: Abdomen and pelvis CT 05/18/2020 FINDINGS: The bowel gas pattern is unremarkable. There are no dilated loops of small bowel to suggest an obstruction. The patient's left ureteral stone seen on the prior CT is is not identified on this study. This may have passed in the interval. No renal calculi. No definite ureteral calculi. Posterior fusion hardware from L3 through S1 with pedicle screws and rods. Of note, the renal shadows are mostly obscured by overlying bowel gas. No pneumoperitoneum or pneumatosis. IMPRESSION: No definite renal or ureteral calculi. ACT 112: Negative or not required by law. Electronically signed by: Brown Arndt M.D. 05/27/2020 1:42 PM Dictated: 05/27/20 1337Transcribed: 05/27/[address] SCAN OF THE ABDOMEN AND PELVIS WITHOUT IV CONTRAST CLINICAL HISTORY: Left flank pain. Ureteral stone. COMPARISON STUDY: Abdominal CT dated 05/18/2020. TECHNIQUE: CT scan of the abdomen and pelvis is performed from the lung bases to the proximal femora. Images are reviewed in the axial, sagittal, and coronal planes. IV contrast was not administered for this examination. A dose lowering technique was utilized adhering to the principles of ALARA. CT DOSE: 898.90 mGy.cm FINDINGS: Lung bases: The heart is normal in size and without pericardial effusion. The lung bases are clear noting bibasilar atelectasis. There is a tiny hiatal hernia. Liver: The unenhanced liver is normal in size, contour, and attenuation. There is no intrahepatic biliary ductal dilatation. Gallbladder: Unremarkable. Spleen: Normal in size and attenuation. Pancreas: Unremarkable. Adrenal glands: A 2.3 cm left adrenal nodule meets CT criteria for a fat- containing adenoma. The right adrenal gland is normal in appearance. Kidneys: The unenhanced kidneys demonstrate mild cortical atrophy. There is a 4 mm obstructing calculus identified in the distal left ureter. This is located just above the vesicoureteral junction as seen on image #393. This has progressed several centimeter distally as compared to 05/18/2020. There is associated left-sided perinephric and periureteric stranding, and the obstructing stone causes moderate to severe left hydroureteronephrosis. No additional calculi are identified in either kidney. There is no right-sided hydronephrosis. Peripelvic cysts are seen in the right. A 1.5 cm cortical cyst arises from the right lower pole. Abdominal vasculature: There is moderate atherosclerotic calcification and mild ectasia of the abdominal aorta. Bowel: There is mild to moderate colonic diverticulosis without CT evidence of acute diverticulitis. No bowel obstruction is seen. The appendix is well- visualized and normal. Peritoneum: There is no intraperitoneal free air or abdominal ascites. Lymphadenopathy: None. Pelvic viscera: The bladder is decompressed and grossly unremarkable. The prostate and seminal vesicles are normal as visualized. There are bilateral fat- containing inguinal hernias. Skeletal structures: The skeletal structures are osteopenic. There is lumbosacral spondylosis, with postoperative change from L3-S1 spinal fusion. No lytic or blastic lesions are seen. IMPRESSION: 1. There is a 4 mm obstructing calculus identified in the distal left ureter located just above the vesicoureteral junction. This has passed several centimeters distally as compared to the 05/18/2020 examination. 2. The obstructing calculus causes moderate to severe left hydroureteron ephrosis. 3. No additional calculi are identified in either kidney. 4. Mild to moderate colonic diverticulosis without CT evidence of acute diverticulitis. 5. Additional findings as above. ACT 112: Negative or not required by law. Electronically signed by: Jarad Hunter M.D. 05/27/2020 2:37 PM Dictated: 05/27/201428Transcribed: 05/27/201428 Consultation(s): Urology, medicine HPI: 70/M arrives for evaluation of L flank pain. He states this has been ongoing for several weeks, but in the last week has become worse. The pain has been keeping him awake at night. He has not been eating or drinking much recently d/t nausea. He denies fevers. He does follow with Dr. [facility] urology. ROS: See above HPI for pertinent positives & negatives. A total of 10 systems reviewed and were otherwise negative. PAST MEDICAL HISTORY:See Below PAST SURGICAL HISTORY:See Below FAMILY HISTORY:See Below SOCIAL HISTORY:See Below HOME MEDICATIONS:See Below ALLERGIES:See Below VITALS:See Below PHYSICAL EXAMINATION: Vital signs reviewed. General: Well-appearing 70 yo male, in no significant distress. HEENT: No scleral icterus, PERRLA, neck supple. Atraumatic. Cardiovascular: Regular rate and rhythm, no extra sounds. Pulmonary: Clear to auscultation bilaterally, normal work of breathing. Abdomen: Soft, nontender, nondistended, positive bowel sounds. Musculoskeletal: Atraumatic, no peripheral edema. No CVA tenderness Neurologic: Patient awake alert and oriented x 3 Skin: Warm, dry, no rash Alesia Dennis MD Past Med/Surg History Medical History Anxiety BPH with obstruction/lower urinary tract symptoms Chronic back pain Degenerative disc disease Hydrocele Hyperlipidemia Hypothyroidism Scrotal swelling Spinal stenosis Surgical History History of cataract surgery History of eye surgery as a child History of wisdom tooth extraction Social History Smoking Status: Never smoker Second Hand Exposure: No; Hx Alcohol Use: Yes Alcohol type: beer Hx Substance Use: No Preferred Language: Malay Communication Ability: Effective Client Services Manager Required: No Beliefs That Will Affect Care: None Current Living Situation: Alone Feels Safe at Home: Yes Assistive Devices: None Allergies Allergies Allergy/AdvReac Type Severity Reaction Status Date / Time No Known Allergies Allergy Verified 05/28/20 14:04 Home Meds Home Medications Medication Instructions Recorded Confirmed alprazolam [Xanax] 0.25 mg PO QAM 08/14/18 05/27/20 coQ10 (ubiquinol) 200 mg PO QPM 08/14/18 05/27/20 cyanocobalamin (vitamin B-12) 1,000 mcg PO DAILY 08/14/18 05/27/20 gemfibrozil 600 mg PO BID 08/14/18 05/27/20 levothyroxine [Synthroid] 50 mcg PO QAM 08/14/18 05/27/20 cyanocobalamin (vitamin B-12) 0 mcg IM DAILY 05/27/20 05/27/20 Previous Rx's Medication Instructions Recorded tamsulosin 0.4 mg capsule 0.4 mg PO QPM #30 cap 05/18/20 Results & Data (ED) Vital Signs Vital Signs - 24 hr 05/27/20 12:21 05/27/20 14:10 Temperature 36.8 C Temperature Source Oral Pulse Rate 81 Pulse Rate [Left] 84 Respiratory Rate 18 18 Respiratory Effort / Characteristics Non-Labored Respiratory Depth Normal Blood Pressure 174/74 H Blood Pressure [Right Arm] 164/86 H Blood Pressure Mean 107 Blood Pressure Mean [Right Arm] 112 Blood Pressure Position [Right Arm] Lying Pulse Oximetry 98 98 Oxygen Delivery Method Room Air Room Air Sepsis Recent Fever Within 48 Hours No Sepsis New/Unexplained Change in Mental Status No Sepsis Action Taken by Nursing No Action Required Home Medications Current Medication List: was personally reviewed by me Laboratory Data Attestation: I reviewed the patient's lab results. Result diagrams: 05/28/20 05:52 05/28/20 05:52 Lab Results 05/27/20 05/27/20 05/27/20 Range/Units 13:05 13:20 13:20 WBC 9.61 (4.8-10.8) K/uL RBC 4.45 L (4.7-6.1) M/uL Hgb 14.3 (14.0-18.0) g/dL Hct 41.2 L (42-52) % MCV 92.6 (80-100) fL MCH 32.1 (25-34) pg MCHC 34.7 (32-36) g/dL RDW Std Deviation 42.1 (36.4-46.3) fL RDW Coeff of Cris 12.3 (11.5-14.5) % Plt Count 251 (130-400) K/uL MPV 9.3 (7.4-10.4) fL Sodium 137 (136-145) mmol/L Potassium 4.2 (3.5-5.1) mmol/L Chloride 105 (98-107) mmol/L Carbon Dioxide 27 (21-32) mmol/L Anion Gap 5.0 (3-11) BUN 21 H (7-18) mg/dl Creatinine 1.85 H (0.6-1.4) mg/dl Est Cr Clr Drug Dosing 47.5 ml/min Est GFR ( Amer) 41.8 Est GFR (Non-Af Amer) 36.1 BUN/Creatinine Ratio 11.5 (10-20) Glucose 105 H (70-99) mg/dl Calcium 10.4 H (8.5-10.1) mg/dl Total Bilirubin 0.7 (0.2-1) mg/dl AST 15 (15-37) U/L ALT 16 (12-78) U/L Alkaline Phosphatase 92 (45-117) U/L Total Protein 7.4 (6.4-8.2) gm/dl Albumin 3.4 (3.4-5.0) gm/dl Globulin 4.0 (2.5-4.0) gm/dl Albumin/Globulin Ratio 0.9 (0.9-2) Urine Color Yellow Urine Appearance Clear (Clear) Urine pH 5.5 (4.5-7.5) Ur Specific [place] 1.027 (1.000-1.030) Urine Protein Trace H (Negative) Urine Glucose (UA) Negative (Negative) Urine Ketones Trace H (Negative) Urine Blood 2+ H (Negative) Urine Nitrite Negative (Negative) Urine Bilirubin Negative (Negative) Urine Urobilinogen Negative (Negative) Ur Leukocyte Esterase Trace H (Negative) Urine RBC 5-10 H (0-4) /hpf Urine WBC 5-10 H (0-5) /hpf Ur Epithelial Cells 0-5 (0-5) /lpf Calcium Oxalate Crystal Present A (None Prsent) Urine Bacteria Negative (Negative) COVID-19 Eval Order SARS-CoV-2, RNA, NAAT (NEGATIVE) 05/27/20 05/27/20 Range/Units 13:20 13:20 WBC (4.8-10.8) K/uL RBC (4.7-6.1) M/uL Hgb (14.0-18.0) g/dL Hct (42-52) % MCV (80-100) fL MCH (25-34) pg MCHC (32-36) g/dL RDW Std Deviation (36.4-46.3) fL RDW Coeff of Cris (11.5-14.5) % Plt Count (130-400) K/uL MPV (7.4-10.4) fL Sodium (136-145) mmol/L Potassium (3.5-5.1) mmol/L Chloride (98-107) mmol/L Carbon Dioxide (21-32) mmol/L Anion Gap (3-11) BUN (7-18) mg/dl Creatinine (0.6-1.4) mg/dl Est Cr Clr Drug Dosing ml/min Est GFR ( Amer) Est GFR (Non-Af Amer) BUN/Creatinine Ratio (10-20) Glucose (70-99) mg/dl Calcium (8.5-10.1) mg/dl Total Bilirubin (0.2-1) mg/dl AST (15-37) U/L ALT (12-78) U/L Alkaline Phosphatase (45-117) U/L Total Protein (6.4-8.2) gm/dl Albumin (3.4-5.0) gm/dl Globulin (2.5-4.0) gm/dl Albumin/Globulin Ratio (0.9-2) Urine Color Urine Appearance (Clear) Urine pH (4.5-7.5) Ur Specific [place] (1.000-1.030) Urine Protein (Negative) Urine Glucose (UA) (Negative) Urine Ketones (Negative) Urine Blood (Negative) Urine Nitrite (Negative) Urine Bilirubin (Negative) Urine Urobilinogen (Negative) Ur Leukocyte Esterase (Negative) Urine RBC (0-4) /hpf Urine WBC (0-5) /hpf Ur Epithelial Cells (0-5) /lpf Calcium Oxalate Crystal (None Prsent) Urine Bacteria (Negative) COVID-19 Eval Order Covid19 IDNow [facility] SARS-CoV-2, RNA, NAAT NEGATIVE (NEGATIVE) Administered Medications Discontinued Medications Acetaminophen (Acetaminophen 325 Mg Tab) 650 mg PO Q4H PRN PRN Reason: Moderate Pain Stop: 06/26/20 18:11 Last Admin: 05/28/20 07:04 Dose: 650 mg Documented by: [id number] Alprazolam (Alprazolam 0.5 Mg Tablet) 0.5 mg PO HS LUL Stop: 06/26/20 21:14 Last Admin: 05/27/20 21:40 Dose: 0.5 mg Documented by: [id number] Alprazolam (Alprazolam 0.5 Mg Tablet) 0.5 mg PO NOW STA Stop: 05/28/20 13:15 Last Admin: 05/28/20 13:27 Dose: 0.5 mg Documented by: [id number] Bisacodyl (Bisacodyl 5 Mg Tabec) 5 mg PO DAILY LUL Stop: 06/26/20 16:24 Last Admin: 05/28/20 09:14 Dose: 5 mg Documented by: [id number] Admin: 05/27/20 17:46 Dose: 5 mg Documented by: [id number] Gemfibrozil (Gemfibrozil 600 Mg Tab) 600 mg PO BID LUL Stop: 06/26/20 20:59 Last Admin: 05/28/20 09:14 Dose: 600 mg Documented by: [id number] Admin: 05/27/20 20:42 Dose: 600 mg Documented by: [id number] Sodium Chloride (Nss 1000ml) 1,000 mls @ 125 mls/hr IV .Q8H STA Stop: 05/27/20 20:56 Last Infusion: 05/27/20 18:01 Dose: 0 mls/hr Documented by: [id number] Admin: 05/27/20 13:18 Dose: 125 mls/hr Documented by: [id number] Sodium Chloride (Nss 1000ml) 1,000 mls @ 200 mls/hr IV .Q5H LUL Stop: 05/28/20 09:59 Last Infusion: 05/28/20 09:15 Dose: 0 mls/hr Documented by: [id number] Admin: 05/28/20 04:17 Dose: 200 mls/hr Documented by: [id number] Infusion: 05/28/20 04:16 Dose: 0 mls/hr Documented by: [id number] Admin: 05/27/20 23:15 Dose: 200 mls/hr Documented by: [id number] Infusion: 05/27/20 23:15 Dose: 200 mls/hr Documented by: [id number] Admin: 05/27/20 19:08 Dose: 200 mls/hr Documented by: [id number] Sodium Chloride (Nss 1000ml) 1,000 mls @ 100 mls/hr IV .Q10H LUL Stop: 06/27/20 08:29 Last Infusion: 05/28/20 16:32 Dose: 100 mls/hr Documented by: [id number] Infusion: 05/28/20 14:24 Dose: 0 mls/hr Documented by: [id number] Admin: 05/28/20 09:13 Dose: 100 mls/hr Documented by: [id number] Ciprofloxacin (Cipro / D5w) 400 mg in 200 mls @ 100 mls/hr IV PREOP LUL; Protocol Stop: 05/29/20 13:59 Last Infusion: 05/28/20 16:14 Dose: 0 mls/hr Documented by: [id number] Admin: 05/28/20 14:14 Dose: 100 mls/hr Documented by: [id number] Levothyroxine Sodium (Levothyroxine Sodium 50 Mcg Tablet) 50 mcg PO DAILYBB LUL Stop: 06/27/20 06:29 Last Admin: 05/28/20 05:49 Dose: 50 mcg Documented by: [id number] Ondansetron HCl (Ondansetron Inj 2 Mg/Ml 2 Ml Vial) 4 mg IV Q6H LUL Stop: 06/26/20 12:59 Last Admin: 05/27/20 13:18 Dose: 4 mg Documented by: [id number] Polyethylene Glycol (Polyethylene (Miralax) 17 Gm Pack) 17 gm PO DAILY LUL Stop: 06/26/20 16:29 Last Admin: 05/28/20 10:30 Dose: Not Given Documented by: [id number] Admin: 05/27/20 17:46 Dose: 17 gm Documented by: [id number] Tamsulosin HCl (Tamsulosin Hcl 0.4 Mg Cap) 0.4 mg PO QPM LUL Stop: 06/26/20 20:59 Last Admin: 05/27/20 20:30 Dose: 0.4 mg Documented by: [id number] Discharge Plan Visit Data Chief Complaint: Kidney Stone Stated Complaint: KIDNEY STONE ED Provider: Alesia Dennis Discharge Problem: Calculus of distal left ureter, Hydronephrosis of left kidney, Renal colic on left side Patient Disposition: Admitted As Inpatient Discharge Instructions Interventions: ED Discharge Assessment Last Done: 05/27/20 17:58
--- NOTE | 2020-05-27 14:38 | CT Scan Report ---
CT SCAN OF THE ABDOMEN AND PELVIS WITHOUT IV CONTRAST CLINICAL HISTORY: Left flank pain. Ureteral stone. COMPARISON STUDY: Abdominal CT dated 05/18/2020. TECHNIQUE: CT scan of the abdomen and pelvis is performed from the lung bases to the proximal femora. Images are reviewed in the axial, sagittal, and coronal planes. IV contrast was not administered for this examination. A dose lowering technique was utilized adhering to the principles of ALARA. CT DOSE: 898.90 mGy.cm FINDINGS: Lung bases: The heart is normal in size and without pericardial effusion. The lung bases are clear no ting bibasilar atelectasis. There is a tiny hiatal hernia. Liver: The unenhanced liver is normal in size, contour, and attenuation. There is no intrahepatic laney iary ductal dilatation. Gallbladder: Unremarkable. Spleen: Normal in size and attenuation. Pancreas: Unremarkable. Adrenal glands: A 2.3 cm left adrenal nodule meets CT criteria for a fat-containing adenoma. The righ t adrenal gland is normal in appearance. Kidneys: The unenhanced kidneys demonstrate mild cortical atrophy. There is a 4 mm obstructing calcul us identified in the distal left ureter. This is located just above the vesicoureteral junction as se en on image #393. This has progressed several centimeter distally as compared to 05/18/2020. There is a ssociated left-sided perinephric and periureteric stranding, and the obstructing stone causes moderat e to severe left hydroureteronephrosis. No additional calculi are identified in either kidney. There is no right-sided hydronephrosis. Peripelvic cysts are seen in the right. A 1.5 cm cortical cyst bettina es from the right lower pole. Abdominal vasculature: There is moderate atherosclerotic calcification and mild ectasia of the abdomi nal aorta. Bowel: There is mild to moderate colonic diverticulosis without CT evidence of acute diverticulitis. No bowel obstruction is seen. The appendix is well-visualized and normal. Peritoneum: There is no intraperitoneal free air or abdominal ascites. Lymphadenopathy: None. Pelvic viscera: The bladder is decompressed and grossly unremarkable. The prostate and seminal vesicl es are normal as visualized. There are bilateral fat-containing inguinal hernias. Skeletal structures: The skeletal structures are osteopenic. There is lumbosacral spondylosis, with p ostoperative change from L3-S1 spinal fusion. No lytic or blastic lesions are seen. IMPRESSION: 1. There is a 4 mm obstructing calculus identified in the distal left ureter located just above the v esicoureteral junction. This has passed several centimeters distally as compared to the 05/18/2020 exam ination. 2. The obstructing calculus causes moderate to severe left hydroureteronephrosis. 3. No additional calculi are identified in either kidney. 4. Mild to moderate colonic diverticulosis without CT evidence of acute diverticulitis. 5. Additional findings as above. ACT 112: Negative or not required by law. Electronically signed by: Jarad Hunter M.D. 05/27/2020 2:37 PM
--- NOTE | 2020-05-27 15:58 | History & Physical Report ---
Date of Service May 27, 2020 Assessment & Plan (1) Left nephrolithiasis: - Admit to med surg - CT abd/pelvis: 1. There is a 4 mm obstructing calculus identified in the distal left ureter located just above the vesicoureteral junction. This has passed several centimeters distally as compared to the 05/18/2020 examination. 2. The obstructing calculus causes moderate to severe left hydroureteronephrosis. 3. No additional calculi are identified in either kidney. 4. Mild to moderate colonic diverticulosis without CT evidence of acute diverticulitis. 5. Additional findings as above. - CT compared to previous CT findings on 05/18 -- the stone has progressed down the ureter, however now there is perinephritic stranding concerning for hydronephrosis - NSS at 200 ml/hr x 3 bags, then can decrease fluids, continue flomax, strain all urine, encourage ambulation - Toradol, tylenol and zofran prn - Urology consulted - Dr. Sandhu - Allow full liquid diet tonight and then make NPO after midnight for possible urological procedure - WBC 9.6, afebrile - UA reviewed, does not appear to be grossly infected, follow UCx. Pt reports being on course of antibiotics for possible UTI a few weeks ago. Pt is unaware if he had infection. Denies dysuria, increased frequency or hematuria. 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 History of Present Illness Primary Care Provider: Gaston Walsh This is a 79 yo M with PMhx PMHx of spinal stenosis, chronic left flank pain, gross hematuria, BPH with LUTS who presents with flank pain. Patient reports that his pain initially started in the middle of April where he noticed gross hematuria, initially but this resolved after 1 week timeframe, then represented. At that point he felt increased pain around his left flank down into the left lower quadrant of the his abdomen. Initially pt sought care where imaging was performed showing a left-sided kidney stone. He has followed with urology, Dr. Sandhu as an outpatient since then, and they have been monitoring/watching to make sure there was no worsening. Pt had a CT of the abdomen pelvis done on May 18 which showed 5 mm x 4 mm stone in the distal ureter without hydron ephrosis, but then the patient's pain worsened. He read presented to the urology office yesterday due to significant amounts of pain, and they scheduled him to have a CT of the abdomen today. Imaging revealed that the stone had moved further down the ureter however does have hydronephrosis at this time. He admits to having significant increase in pain, chills, shakes, constipation x3 days, poor appetite, reduced intake and dry heaves. Patient's pain is currently well controlled rated a 2 out of 10 in the left flank. Allergies Allergy/AdvReac Type Severity Reaction Status Date / Time No Known Allergies Allergy Verified 02/12/20 10:09 Home Medications Medication Instructions Recorded Confirmed Type alprazolam [Xanax] 0.25 mg PO QAM 08/14/18 05/27/20 History coQ10 (ubiquinol) 200 mg PO QPM 08/14/18 05/27/20 History cyanocobalamin (vitamin B-12) 1,000 mcg PO DAILY 08/14/18 05/27/20 History gemfibrozil 600 mg PO BID 08/14/18 05/27/20 History levothyroxine [Synthroid] 50 mcg PO QAM 08/14/18 05/27/20 History tamsulosin 0.4 mg capsule 0.4 mg PO QPM #30 cap 05/18/20 05/27/20 Rx cyanocobalamin (vitamin B-12) 0 mcg IM DAILY 05/27/20 05/27/20 History [Vitamin B-12] Past Med/Surg History Medical History (Updated 05/27/20 @ 16:24 by Akilah Knapp PA-C) Anxiety BPH with obstruction/lower urinary tract symptoms Chronic back pain Degenerative disc disease Hydrocele Hyperlipidemia Hypothyroidism Scrotal swelling Spinal stenosis Surgical History History of cataract surgery History of eye surgery as a child History of wisdom tooth extraction Social History Smoking Status: Never smoker Second Hand Exposure: No; Do You Dip or Chew Tobacco: No; Tobacco Cessation Education Requested by Patient: No Hx Alcohol Use: Yes Alcohol type: beer Hx Substance Use: No Preferred Language: Malawian Communication Ability: Effective Bankruptcy Processor Required: No Beliefs That Will Affect Care: None Current Living Situation: Alone Other Information That Helps Us Care for You: No Feels Safe at Home: Yes Assistive Devices: Glasses Review of Systems Review of Systems: Constitutional: No fever, + sweats and chills Eyes: No diplopia, no worsening or blurred vision ENT: normal hearing, no trouble swallowing Respiratory: No cough, sputum, dyspnea at rest or on exertion Cardiovascular: No chest pain, tightness or palpitations Abdomen: + Distention, pain, constipation x3 days, nausea and dry heaves : Yellow urine, denies hematuria Musculoskeletal: No joint pain, calf pain, swelling Neurologic: No weakness, numbness/tingling, or balance problems Psychiatric: No anxiety or depression Skin: No rash or itch Physical Exam Physical Exam: General: awake, alert, no apparent distress, + overweight, BMI 29.1 Head: Normocephalic, atraumatic ENT: PERRL, EOMI, no pharyngeal exudate, mucous membranes moist Chest: Clear to auscultation, on room air, no adventitious breath sounds Cardiac: Regular rate and rhythm, no murmur, no JVD, normal peripheral pulses, good capillary refill Abdominal: NABS x 4 quadrants, soft, + slightly distended, no tympany, nontender to palpation, no rebound or guarding, no Extremities: Normal inspection, no peripheral edema or erythema, calfs nontender to palpation Psych: Normal mood and affect Neuro: AAO x 3, strength intact bilaterally and rated 5/5, no motor deficits, speech is clear, no peripheral sensory deficits Results & Data Results & Data ([facility]) Vital Signs (Past 12 Hours) Vital Signs Temp Pulse Pulse Resp BP BP Pulse Ox 05/27/20 14:10 84 18 164/86 H 98 05/27/20 12:21 36.8 C 81 18 174/74 H 98 Diagnostic Findings KUB HISTORY: L ureteral stone COMPARISON: Abdomen and pelvis CT 05/18/2020 FINDINGS: The bowel gas pattern is unremarkable. There are no dilated loops of small bowel to suggest an obstruction. The patient's left ureteral stone seen on the prior CT is is not identified on this study. This may have passed in the interval. No renal calculi. No definite ureteral calculi. Posterior fusion hardware from L3 through S1 with pedicle screws and rods. Of note, the renal shadows are mostly obscured by overlying bowel gas. No pneumoperitoneum or pneumatosis. IMPRESSION: No definite renal or ureteral calculi. CT SCAN OF THE ABDOMEN AND PELVIS WITHOUT IV CONTRAST CLINICAL HISTORY: Left flank pain. Ureteral stone. COMPARISON STUDY: Abdominal CT dated 05/18/2020. TECHNIQUE: CT scan of the abdomen and pelvis is performed from the lung bases to the proximal femora. Images are reviewed in the axial, sagittal, and coronal planes. IV contrast was not administered for this examination. A dose lowering technique was utilized adhering to the principles of ALARA. CT DOSE: 898.90 mGy.cm FINDINGS: Lung bases: The heart is normal in size and without pericardial effusion. The lung bases are clear noting bibasilar atelectasis. There is a tiny hiatal hernia. Liver: The unenhanced liver is normal in size, contour, and attenuation. There is no intrahepatic biliary ductal dilatation. Gallbladder: Unremarkable. Spleen: Normal in size and attenuation. Pancreas: Unremarkable. Adrenal glands: A 2.3 cm left adrenal nodule meets CT criteria for a fat- containing adenoma. The right adrenal gland is normal in appearance. Kidneys: The unenhanced kidneys demonstrate mild cortical atrophy. There is a 4 mm obstructing calculus identified in the distal left ureter. This is located just above the vesicoureteral junction as seen on image #393. This has progressed several centimeter distally as compared to 05/18/2020. There is associated left-sided perinephric and periureteric stranding, and the obstructing stone causes moderate to severe left hydroureteronephrosis. No additional calculi are identified in either kidney. There is no right-sided hydronephrosis. Peripelvic cysts are seen in the right. A 1.5 cm cortical cyst arises from the right lower pole. Abdominal vasculature: There is moderate atherosclerotic calcification and mild ectasia of the abdominal aorta. Bowel: There is mild to moderate colonic diverticulosis without CT evidence of acute diverticulitis. No bowel obstruction is seen. The appendix is well- visualized and normal. Peritoneum: There is no intraperitoneal free air or abdominal ascites. Lymphadenopathy: None. Pelvic viscera: The bladder is decompressed and grossly unremarkable. The prostate and seminal vesicles are normal as visualized. There are bilateral fat- containing inguinal hernias. Skeletal structures: The skeletal structures are osteopenic. There is lumbosacral spondylosis, with postoperative change from L3-S1 spinal fusion. No lytic or blastic lesions are seen. IMPRESSION: 1. There is a 4 mm obstructing calculus identified in the distal left ureter located just above the vesicoureteral junction. This has passed several centimeters distally as compared to the 05/18/2020 examination. 2. The obstructing calculus causes moderate to severe left hydrourete ronephrosis. 3. No additional calculi are identified in either kidney. 4. Mild to moderate colonic diverticulosis without CT evidence of acute diverticulitis. 5. Additional findings as above. Code Status & VTE Plan Code Status FULL - discussed with the pt at bedside Supervising Physician Co-Signing Physician Notes Patient was seen and examined independently I discussed the case with Sarai Gallegos PAC I reviewed pertinent past medical social family history and also the plan of care and agree with the plan of care. Patient is newly found 4 mm left ureteral calculus with some hydronephrosis. He also has chronic back pain having recently seen Dr. Burton and there is concern for additional intervention needed in addition to his previous laminectomy fusion I was in a few years ago patient be admitted for intravenous fluids paren teral pain control Flomax and urology consultation consideration intervention if stone does not pass without intervention The patient appeared to be in mild to moderate distress Vital signs as documented. Lungs are clear to auscultation and appear unlabored Cardiac exam, Rhythm is regular.. No murmurs, rubs or gallops. Abdominal exam reveals normal bowel sounds, soft left flank discomfort radiating to his left anterior lower abdomen (no evidence of diverticulitis on CT scan there is diverticulosis.) Extremities are nonedematous and both pedal pulses are normal. Neurologic exam is alert and oriented, no focal loss of strength or sensation Skin is without bruises or rashes Psychologically is without concerns for anxiety or depression. Admitted for typical treatment of renal colic with urology evaluation Any exceptions will be noted below PG Care Time/CCT Total # of Minutes Spent Total Time Spent with Patient: Total time spent is greater than 50% in coordination of care (as documented) at patient's floor/unit and/or counseling patient: Coding Level of Care Code 69825 Initial Inpt Care Lvl 3 Diagnoses Left nephrolithiasis N20.0 BPH with obstruction/lower urinary tract symptoms N40.1; N13.8 Constipation K59.00 Spinal stenosis M48.00 Hypothyroidism E03.9
[2020-05-27] MEDS ORDERED: KETOROLAC 30 MG/ML VIAL IV PRN (16:18)
[2020-05-27] MEDS ORDERED: ONDANSETRON INJ 2 MG/ML 2 ML VIAL IV PRN (16:18)
[2020-05-27] MEDS: POLYETHYLENE (MIRALAX) 17 GM PACK PO SCH (17:46)
[2020-05-27] MEDS: bisacodyL 5 MG TABEC PO SCH (17:46)
[2020-05-27] MEDS ORDERED: ACETAMINOPHEN 325 MG TAB PO PRN (18:12)
[2020-05-27] MEDS: SODIUM CHLORIDE 0.9% 1000ML 1,000 ML IV SCH ×2 (19:08→23:15)
[2020-05-27] MEDS: gemfibroziL 600 MG TAB PO SCH (20:42)
[2020-05-27] MEDS ORDERED: TAMSULOSIN HCL 0.4 MG CAP PO SCH (21:00)
[2020-05-27] MEDS ORDERED: ALPRAZolam 0.5 MG TABLET PO SCH (21:15)
[2020-05-28] MEDS: SODIUM CHLORIDE 0.9% 1000ML 1,000 ML IV SCH (04:17)
[2020-05-28 06:28] LABS: Hematocrit (blood only) 35.8 % (42-52); Hemoglobin 12.3 g/dL (14.0-18.0); Mean Corpuscular Hemoglobin 31.8 pg (25-34); Mean Corpuscular Hgb Conc 34.4 g/dL (32-36); Mean Corpuscular Volume 92.5 fL (80-100); Mean Platelet Volume 9.4 fL (7.4-10.4); Platelet Count 217 K/uL (130-400); RDW Coefficient of Variation 12.4 % (11.5-14.5); RDW Standard Deviation 42.3 fL (36.4-46.3); Red Blood Count 3.87 M/uL (4.7-6.1); White Blood Count 6.13 K/uL (4.8-10.8)
[2020-05-28] MEDS ORDERED: LEVOTHYROXINE SODIUM 50 MCG TABLET PO SCH (06:30)
[2020-05-28 06:51] LABS: Albumin Level 2.6 gm/dl (3.4-5.0); BUN Creatinine Ratio 12.2 (10-20); Calcium 9.5 mg/dl (8.5-10.1); Creatinine Clr Calc Pharmacy 66.6 ml/min; Est GFR (African American) 63.5; Est GFR (Non-African American) 54.8; Potassium 4.2 mmol/L (3.5-5.1)
[2020-05-28 07:03] LABS: Albumin Globulin Ratio 0.8 (0.9-2); Bilirubin,Total 0.6 mg/dl (0.2-1); Globulin 3.3 gm/dl (2.5-4.0); Total Protein 5.9 gm/dl (6.4-8.2)
[2020-05-28] MEDS ORDERED: SODIUM CHLORIDE 0.9% 1000ML 1,000 ML IV SCH (08:30)
[2020-05-28] MEDS ORDERED: ALPRAZolam 0.25 MG TABLET PO SCH (09:00)
[2020-05-28] MEDS: bisacodyL 5 MG TABEC PO SCH (09:14)
[2020-05-28] MEDS: POLYETHYLENE (MIRALAX) 17 GM PACK PO SCH ×2 (09:14→10:30)
[2020-05-28] MEDS: gemfibroziL 600 MG TAB PO SCH (09:14)
--- NOTE | 2020-05-28 09:53 | Urology Consultation ---
Date of Consultation May 28, 2020 Assessment & Plan (1) Left ureteral calculus: 70yo M admitted with left flank pain secondary to a 4mm distal left ureteral stone with hydronephrosis -Afebrile, Wbc stable and creatinine improved today -No stone passage overnight -Discussed options for acute stone management with cysto, stent placement and possible ureteroscopy, laser lithotripsy -Discussed outpatient options for conservative measures with max expulsion medical therapy and symptom control -Risks/benefits of each discussed -Will plan to keep NPO -Strain all urine -Plan for OR later today for Cystoscopy, Left stent placement, possible Ureteroscopy, Laser Lithotripsy -Will reassess this afternoon -Pt reassessed this afternoon -Denies stone passage -Continues to have L flank and suprapubic discomfort -Remains afebrile -Reviewed plan of care with Dr. Hodge -Given his left flank pain in the context of an obstructing 4mm distal left ureteral stone, will proceed with OR for Cystoscopy, Left stent placement, possible Ureteroscopy, laser lithotripsy depending on findings. Risks and benefits to be reviewed with patient by Dr. Hodge. OR notified. Will cover with IV Ciprofloxacin preoperatively. -Patient agreeable to above plan, all questions were answered. History of Present Illness Reason for Consultation: Left Nephrolithiasis, Hydronephrosis Attending Physician: Lizette Haskins MD History of Present Illness The patient is a 70-year-old male with a PMHx of spinal stenosis, spermatocele, hypothyroidism and BPH with LUTS who presented to the ER yesterday with c/o significant increase in left flank pain. He reported chills, shakes, constipation x3 days, poor appetite, reduced intake and dry heaves. The patient reports he first noticed left-sided pain with associated hematuria in the middle of April. He was seen by urology at that time and imaging was ordered. A CT abdomen pelvis was completed on 05/18 and showed a 5 x 4mm left ureteral stone. At that time, he was feeling well and opted for a trial of passage with maximum expulsion therapy. Pt then presented to the ER on 05/27 with c/o worsening and intractable left flank pain. CT abdomen pelvis revealed a 4mm obstructing distal left ureteral calculus with hydronephrosis, which had passed several centimeters distally as compared to the 05/18/20 CT imaging. A KUB was also completed and no renal or ureteral stones were noted. On admission, Wbc 9.61, Hgb 14.3, Cr 1.85. Urinalysis 5-10 rbc, 5-10 wbc, neg nitrites, neg bacteria. CT abdomen pelvis 05/18: 1. 5 mm x 4 mm mid left ureteral calculus which results in slight asymmetric dilatation of the left ureter without hydronephrosis. Mild left periureteral and perinephric infiltration. No additional urinary calculi. 2. No upper tract urothelial lesions. Suboptimal evaluation of the bladder given incomplete opacification but no bladder lesion identified. 3. Colonic diverticulosis without evidence for acute diverticulitis. CT abdomen pelvis 05/27: 1. There is a 4 mm obstructing calculus identified in the distal left ureter located just above the vesicoureteral junction. This has passed several centimeters distally as compared to the 05/18/2020 examination. 2. The obstructing calculus causes moderate to severe left hydroureteronephrosis. 3. No additional calculi are identified in either kidney. 4. Mild to moderate colonic diverticulosis without CT evidence of acute diverticulitis. KUB 05/27: IMPRESSION: No definite renal or ureteral calculi. Pt examined at bedside this AM. Awake, resting in bed on arrival. Pt reports he is feeling much better this morning. He is still having some intermittent left flank pain for which he has taken Tylenol. He rates his pain a 2/10. He has been straining all urine and denies any stone passage overnight. Denies hematuria and dysuria. Voiding spontaneously without difficulty. Feels he is emptying his bladder. He reports a slower stream over the past few weeks. Denies urinary urgency, frequency, and hesitancy. On flomax. Has been NPO since midnight. No nausea or vomiting. No fevers or chills. Denies CP/SOB. Denies dizziness/lightheadedness. Ambulating w/o difficulty. Not on any anticoagulants. On Miralax and Dulcolax for constipation. Pt reports a BM yesterday. Pt is well known to the urology service. He follows with Dr. Heart. He denies a prior hx of stones. Denies family hx of stones. Offers no additional complaints today Allergies Allergy/AdvReac Type Severity Reaction Status Date / Time No Known Allergies Allergy Verified 02/12/20 10:09 Home Medications Medication Instructions Recorded Confirmed Type alprazolam [Xanax] 0.25 mg PO QAM 08/14/18 05/27/20 History coQ10 (ubiquinol) 200 mg PO QPM 08/14/18 05/27/20 History cyanocobalamin (vitamin B-12) 1,000 mcg PO DAILY 08/14/18 05/27/20 History gemfibrozil 600 mg PO BID 08/14/18 05/27/20 History levothyroxine [Synthroid] 50 mcg PO QAM 08/14/18 05/27/20 History tamsulosin 0.4 mg capsule 0.4 mg PO QPM #30 cap 05/18/20 05/27/20 Rx cyanocobalamin (vitamin B-12) 0 mcg IM DAILY 05/27/20 05/27/20 History [Vitamin B-12] Patient History Medical History Anxiety BPH with obstruction/lower urinary tract symptoms Chronic back pain Degenerative disc disease Hydrocele Hyperlipidemia Hypothyroidism Scrotal swelling Spinal stenosis Surgical History History of cataract surgery History of eye surgery as a child History of wisdom tooth extraction Social History Smoking Status: Never smoker Second Hand Exposure: No; Do You Dip or Chew Tobacco: No; Tobacco Cessation Education Requested by Patient: No Hx Alcohol Use: Yes Alcohol type: beer Hx Substance Use: No Preferred Language: Togolese Communication Ability: Effective Roller Man Required: No Beliefs That Will Affect Care: None Current Living Situation: Alone Other Information That Helps Us Care for You: No Feels Safe at Home: Yes Assistive Devices: None Review of Systems Review of Systems: All systems reviewed & are unremarkable except as noted in HPI & below Physical Exam Constitutional: well developed and well nourished; no acute distress and not ill appearing Respiratory: normal respiratory effort and able to speak in complete sentences Cardiovascular: Extremities: no calf tenderness Gastrointestinal (Abdomen): Percussion/Palpation: abdomen soft; abdomen nontender and no guarding Musculoskeletal: Head/Neck/Chest: normocephalic Skin: no rashes, warm and dry Neurologic: moves all extremities and awake; not confused Psychiatric: Orientation: alert, oriented x 3 and cooperative Genitourinary: no CVA tenderness Results & Data ([facility]) Vital Signs (Past 12 Hours) Vital Signs Temp Pulse Resp BP Pulse Ox 05/28/20 07:32 37.0 C 74 18 126/69 93 05/27/20 22:52 37 C 64 16 157/80 H 94 PG Care Time/CCT Total # of Minutes Spent Total Time Spent with Patient: Total time spent is greater than 50% in coordination of care (as documented) at patient's floor/unit and/or counseling patient: Coding Level of Care Code 76997 Initial Inpt Care Lvl 3 Diagnoses Left ureteral calculus N20.1
[2020-05-28] MEDS ORDERED: MECLIZINE HCL 25 MG TAB PO PRN (11:25)
--- NOTE | 2020-05-28 12:03 | Hospitalist Progress Note ---
Date of Service May 28, 2020 Assessment & Plan (1) Left ureteral calculus: Mr Wright is a 70y/o M admitted with left flank pain and gross hematuria secondary to a 4mm distal left ureteral stone identified on imaging (1) Left nephrolithiasis: Likely cause for patients pain and gross hematuria -05/18 CT identified 4mm obstructing calculus in the distal left ureter. 05/27 CT shows that calculus is now located several cm distally in comparison to previous CT. Also shows moderate to severe left hydronephrosis -No stone passage overnight -Receiving IVF sodium chloride 1000mls @ 100mls/hr IV Q10H -Strain all urine -Continue flomax -Encourage ambulation -Continue NPO -Scheduled with urology for Cystoscopy, Left Retrograde Pyelogram, Stent Insertion, Possible Ureteroscopy, Possible Laser Lithotripsy this PM -Re-evaluate afterwards for possible discharge (2) BPH with obstruction/lower urinary tract symptoms: - Hx of such- urology consultation as above - Continue flomax (3) Constipation: pt reports has been constipated x 3 days, poor appetite - Started on mirilax (4) Spinal stenosis: - Chronic, stable (5) Hypothyroidism: -Continue levothyroxine 50 mcg daily DVT ppx: Teds, scds, ambulatory CODE: FULL Dispo: From home, may remain in hospital for another day. Potential discharge tomorrow Admission and Anticipated Discharge Date Admission Date: May 27, 2020 Subjective Mr. Wright is a 70 y/o M with PMhx of spinal stenosis, chronic back pain and BPH who presented with gross hematuria and left flank pain. His symptoms began Apr 19, when he first noticed coloration in his urine. He assumed it was because of the beets he ate. He also had some pain, which resolved. His symptoms presented again about a week later. He had increased pain around his left flank down into the left lower quadrant of his abdomen. At this time, he contacted urology. Blood work and CT done. CT showed 4mm stone in left distal ureter. No hydronephrosis. He then began followed with urology, and was drinking a lot of fluids. He began experiencing pain which would wax and wane, as well as constipation which led to decreased PO intake. Patient also noted his urine stream is poorer than usual. Yesterday, his pain reached a 10/10. He presenetd to the ED where CT and KUB done. Pt started on fluids. I saw him this morning. he reported sleeping well. No pain. Tolerating fluids. NPO pending potential procedure by urology. Review of Systems Review of Systems: Constitutional: No fever, no sweats, no chills HEENT: no headaches Respiratory: No cough, sputum, dyspnea at rest or on exertion Cardiovascular: No chest pain, or palpitations Abdomen: no pain, no nausea, some bloating noted : denies hematuria, denies pain with urination, decreased stream with urination Musculoskeletal: No joint pain, calf pain, swelling Neurologic: No weakness, numbness/tingling, or balance problems with walking Physical Exam Physical Exam: General: awake, alert, cooperative, no apparent/acute distress Head: Normocephalic, atraumatic Chest: Clear to auscultation bilat, on room air, no adventitious breath sounds, no increased work of breathing Cardiac: Regular rate and rhythm, no murmur, no JVD, normal peripheral pulses, good capillary refill Abdominal: +bowel sounds, nontender, slightly distended Extremities: Normal inspection, no peripheral edema or erythema, calfs nontender to palpation Psych: Normal mood and affect Neuro: AAO x 3 Constitutional: well developed and well nourished; no acute distress and not ill appearing Respiratory: normal respiratory effort and able to speak in complete sentences Cardiovascular: Extremities: no calf tenderness Gastrointestinal (Abdomen): Percussion/Palpation: abdomen soft; abdomen nontender and no guarding Musculoskeletal: Head/Neck/Chest: normocephalic Skin: no rashes, warm and dry Neurologic: moves all extremities and awake; not confused Psychiatric: Orientation: alert, oriented x 3 and cooperative Genitourinary: no CVA tenderness Results & Data Results & Data ([facility]) Vital Signs (Past 12 Hours) Vital Signs Temp Pulse Resp BP Pulse Ox 05/28/20 07:32 37.0 C 74 18 126/69 93
--- NOTE | 2020-05-28 12:11 | Hospitalist Progress Note ---
Date of Service May 28, 2020 Assessment & Plan Admission and Anticipated Discharge Date Admission Date: May 27, 2020 Subjective Mr. Wright is a 70 y/o M with PMhx of spinal stenosis, chronic back pain and BPH who presented with gross hematuria and left flank pain. His symptoms began Apr 19, when he first noticed coloration in his urine. He assumed it was because of the beets he ate. He also had some pain, which resolved. His symptoms presented again about a week later. He had increased pain around his left flank down into the left lower quadrant of his abdomen. At this time, he contacted urology. Blood work and CT done. CT showed 4mm stone in left distal ureter. No hydronephrosis. He then began followed with urology, and was drinking a lot of fluids. He began experiencing pain which would wax and wane, as well as constipation which led to decreased PO intake. Patient also noted his urine stream is poorer than usual. Yesterday, his pain reached a 10/10. He presenetd to the ED where CT and KUB done. Pt started on fluids. I saw him this morning. he reported sleeping well. No pain. Tolerating fluids. NPO pending potential procedure by urology. Results & Data Results & Data ([facility]) Vital Signs (Past 12 Hours) Vital Signs Temp Pulse Resp BP Pulse Ox 05/28/20 07:32 37.0 C 74 18 126/69 93
--- NOTE | 2020-05-28 12:41 | Anesthesiology Consultation ---
Date of Service May 28, 2020 Assessment & Plan (1) Encounter for pre-operative examination: Chart Review Chart Review: Acceptable Risk for Surgery History Surgery Operation Date: 05/28/20 14:35 Proposed Procedures p Cystoscopy, Left Retrograde Pyelogram, Stent Insertion, Possible Ureteroscopy, Possible Laser Lithotripsy - Ronny Hodge MD Height/Weight Height: 6 ft 2 in Weight: 101.1 kg Allergies Allergy/AdvReac Type Severity Reaction Status Date / Time No Known Allergies Allergy Verified 02/12/20 10:09 Medications Home Medications Medication Instructions Recorded Confirmed Last Taken alprazolam [Xanax] 0.25 mg PO QAM 08/14/18 05/27/20 09/03/18 05:30 coQ10 (ubiquinol) 200 mg PO QPM 08/14/18 05/27/20 08/20/18 14:00 cyanocobalamin (vitamin B-12) 1,000 mcg PO DAILY 08/14/18 05/27/20 09/02/18 10:00 gemfibrozil 600 mg PO BID 08/14/18 05/27/20 09/01/18 11:00 levothyroxine [Synthroid] 50 mcg PO QAM 08/14/18 05/27/20 05/27/20 tamsulosin 0.4 mg capsule 0.4 mg PO QPM #30 cap 05/18/20 05/27/20 Unknown cyanocobalamin (vitamin B-12) 0 mcg IM DAILY 05/27/20 05/27/20 Unknown [Vitamin B-12] Active Medications Generic Name Dose Route Start Last Admin Trade Name Freq PRN Reason Stop Dose Admin Acetaminophen 650 mg 05/27/20 18:12 05/28/20 07:04 Acetaminophen 325 Mg Tab PO 06/26/20 18:11 650 mg Q4H PRN Administration Moderate Pain Alprazolam 0.5 mg 05/27/20 21:15 05/27/20 21:40 Alprazolam 0.5 Mg Tablet PO 06/26/20 21:14 0.5 mg HS LUL Administration Bisacodyl 5 mg 05/27/20 16:25 05/28/20 09:14 Bisacodyl 5 Mg Tabec PO 06/26/20 16:24 5 mg DAILY LUL Administration Gemfibrozil 600 mg 05/27/20 21:00 02/11/21 09:14 Gemfibrozil 600 Mg Tab PO 06/26/20 20:59 600 mg BID LUL Administration Sodium Chloride 1,000 mls @ 100 mls/hr 05/28/20 08:30 05/28/20 09:13 Nss 1000ml IV 06/27/20 08:29 100 mls/hr .Q10H LUL Administration Levothyroxine Sodium 50 mcg 05/28/20 06:30 05/28/20 05:49 Levothyroxine Sodium 50 Mcg Tablet PO 06/27/20 06:29 50 mcg DAILYBB LUL Administration Polyethylene Glycol 17 gm 05/27/20 16:30 05/28/20 10:30 Polyethylene (Miralax) 17 Gm Pack PO 06/26/20 16:29 Not Given DAILY LUL Tamsulosin HCl 0.4 mg 05/27/20 21:00 05/27/20 20:30 Tamsulosin Hcl 0.4 Mg Cap PO 06/26/20 20:59 0.4 mg QPM LUL Administration Past Medical History Medical History Anxiety BPH with obstruction/lower urinary tract symptoms Chronic back pain Degenerative disc disease Hydrocele Hyperlipidemia Hypothyroidism Scrotal swelling Spinal stenosis Past Surgical History Surgical History History of cataract surgery History of eye surgery as a child History of wisdom tooth extraction Social History Smoking Status: Never smoker Do You Dip or Chew Tobacco: No Hx Alcohol Use: Yes Alcohol type: beer alcohol intake frequency: 0-2 drinks per day Hx Substance Use: No substance use type: does not use Physical Exam Vital Signs Last Vital Signs Temp 37.0 C 05/28/20 07:32 Pulse 74 05/28/20 07:32 Resp 18 05/28/20 07:32 BP 126/69 05/28/20 07:32 Pulse Ox 93 05/28/20 07:32 Testing Laboratory Results 05/28/20 05:52 05/28/20 05:52 Urine Color Yellow 05/27/20 13:05 Urine Appearance Clear (Clear) 05/27/20 13:05 Urine pH 5.5 (4.5-7.5) 05/27/20 13:05 Ur Specific [place] 1.027 (1.000-1.030) 05/27/20 13:05 Urine Protein Trace (Negative) H 05/27/20 13:05 Urine Glucose (UA) Negative (Negative) 05/27/20 13:05 Urine Ketones Trace (Negative) H 05/27/20 13:05 Urine Nitrite Negative (Negative) 05/27/20 13:05 Ur Leukocyte Esterase Trace (Negative) H 05/27/20 13:05 Urine RBC 5-10 /hpf (0-4) H 05/27/20 13:05 Urine WBC 5-10 /hpf (0-5) H 05/27/20 13:05 Ur Epithelial Cells 0-5 /lpf (0-5) 05/27/20 13:05 Laboratory Tests 05/28/20 05/28/20 05:52 05:52 Hgb 12.3 L Plt Count 217 Potassium 4.2 Creatinine 1.31 Electrocardiogram Date: 08/29/19 Findings: + NSR @ (87)
[2020-05-28] MEDS ORDERED: ALPRAZolam 0.5 MG TABLET PO STA (13:14)
[2020-05-28] MEDS ORDERED: LIDOCAINE HCL 2% 2 ML VIAL/AMP(20MG/ML) INFIL ONE (13:48)
[2020-05-28] MEDS ORDERED: ONDANSETRON INJ 2 MG/ML 2 ML VIAL ONE (13:48)
[2020-05-28] MEDS ORDERED: PROPOFOL IV EMULSION 10 MG/ML 20 ML VIAL IV ONE (13:48)
[2020-05-28] MEDS ORDERED: fentaNYL citrate 100 MCG/2 ML VIAL ONE ×2 (13:48→14:38)
[2020-05-28] MEDS ORDERED: CIPROFLOXACIN / D5W 400 MG/200 ML BAG IV SCH (14:00)
[2020-05-28] MEDS ORDERED: ONDANSETRON INJ 2 MG/ML 2 ML VIAL IV PRN (14:07)
[2020-05-28] MEDS ORDERED: ATROPINE SULFATE 0.1 MG/ML 10ML SYR IV PRN (14:07)
[2020-05-28] MEDS ORDERED: PROMETHAZINE HCL 12.5 MG in SODIUM CHLORIDE 0.9% 50 ML IV PRN (14:07)
[2020-05-28] MEDS ORDERED: fentaNYL citrate 100 MCG/2 ML VIAL IV PRN (14:07)
[2020-05-28] MEDS ORDERED: PHENYLEPHRINE 100MCG/ML 5ML SYR ONE (14:53)
--- NOTE | 2020-05-28 15:14 | Operative Report ---
PG Post Operative Report Pre & Post Diagnosis Operation Date: 05/28/20 14:35 Pre-Op Diagnosis: Left Ureteral Calculus Post-Op Diagnosis: Left Ureteral Calculus I identified the patient and participated in the time-out.: Yes Procedure Operation Date: 05/28/20 14:35 Actual Procedures p Cystoscopy, Left Ureteroscopic Laser Lithotripsy and Left Ureteral Stent Insertion(Left) - Ronny Hodge MD Surgeon Nilo Hodge MD Casino Attendant none Estimated Blood Loss 5 Findings Consistent with Post-Op Diagnosis Specimens none Description of Procedure To begin the case, a 22F cystoscope was advanced. He has a large hydrocele which made downward deflection of the externalportion of the scope moderately challenging. Additionally, he has an enlarged prostate with an elevated bladder neck. Upon entry into the bladder, full inspection was conducted. There were no stones in the bladder. UOs were in orthotopic position. The Left UO was noted to be mounded but no stones were visualized. I attempted to cannulate this UO with a wire - but the wire was continually deflected back into the bladder, presumably by the distal stone. This started to create a depression in the side of the UO, so rather than create a false passage, I withdrew the wire and guided a semi-rigid scope into the bladder. I advanced this scope the lip of the UO and used the scope to guide the wire laterally and posteriorly, which ultimately allowed the wire to bypass the stone and advance to the kidney. I then advanced the scope and visualized the stone. THe ureter proximal to the stone was dilated. A 365micron laser fiber was passed and the stone broken into several pieces. Unfortunately, it appeared to be propelled retrograde up the ureter. I could not advance the scope beyond the extreme distal ureter, so I placed a second wire and advanced a flexible scope. Full renoscopy was conducted, but no stones were visualized. He had some old clot within the kidney, and I suspect the stone may have been hidden by the clot. a careful exit ureteroscopy was then conducted and I did not visualize any stones. I place a 6F x26cm stent seeing a good curl in the kidney as well as the bladder. I then emptied the bladder and concluded the case. He was extubated and taken to the PACU in stable condition. There were no complications. I attest to the content of the Intraoperative Record and any orders documented therein. Any exceptions are noted below.
--- NOTE | 2020-05-28 15:18 | Fluoroscopy Report ---
FL KUB CLINICAL HISTORY: LT CYSTO/STENT COMPARISON STUDY: None. FLUOROSCOPY TIME: 17 seconds. FINDINGS: A single fluoroscopic spot image of the left abdomen demonstrates a the proximal portion of a left ureteral stent. This appears in good position. Spinal fusion hardware is partially visualized . IMPRESSION: Fluoroscopy provided for left ureteral stent placement. ACT 112: Negative or not required by law. Electronically signed by: Brown Arndt M.D. 05/28/2020 3:17 PM
--- NOTE | 2020-05-28 15:39 | Anesthesiology Progress Note ---
Date of Service May 28, 2020 Anesthesia Post Procedure Vital Signs Vital Signs: Temp Pulse Pulse Pulse Pulse Resp BP 05/28/20 15:35 73 12 05/28/20 15:25 77 17 05/28/20 15:16 36.3 C L 84 20 05/28/20 14:05 37 C 94 H 20 05/28/20 07:32 37.0 C 74 18 05/27/20 22:52 37 C 64 16 05/27/20 18:14 36.4 C L 68 18 05/27/20 17:58 69 18 146/75 H 05/27/20 15:58 79 22 BP BP Pulse Ox 05/28/20 15:35 122/73 93 05/28/20 15:25 137/71 93 05/28/20 15:16 116/68 94 05/28/20 14:05 167/85 H 93 05/28/20 07:32 126/69 93 05/27/20 22:52 157/80 H 94 05/27/20 18:14 160/79 H 97 05/27/20 17:58 98 05/27/20 15:58 139/76 20 L Pain Intensity Left Flank: Pain Intensity: 3 Transfer of Care Handoff Completed per policy Notes Mental Status: alert / awake / arousable Patient Amnestic to Procedure: Yes Nausea / Vomiting: adequately controlled Pain: adequately controlled Airway Patency, RR, SpO2: stable & adequate BP & HR: stable & adequate Hydration State: stable & adequate Anesthetic Complications: no major complications apparent
--- NOTE | 2020-05-28 17:16 | Discharge Summary ---
Date of Service May 28, 2020 Admission HPI Per Admitting Provider This is a 79 yo M with PMhx PMHx of spinal stenosis, chronic left flank pain, gross hematuria, BPH with LUTS who presents with flank pain. Patient reports that his pain initially started in the middle of April where he noticed gross hematuria, initially but this resolved after 1 week timeframe, then represented. At that point he felt increased pain around his left flank down into the left lower quadrant of the his abdomen. Initially pt sought care where imaging was performed showing a left-sided kidney stone. He has followed with urology, Dr. Sandhu as an outpatient since then, and they have been monitoring/watching to make sure there was no worsening. Pt had a CT of the abdomen pelvis done on May 18 which showed 5 mm x 4 mm stone in the distal ureter without hydronephrosis, but then the patient's pain worsened. He read presented to the urology office yesterday due to significant amounts of pain, and they scheduled him to have a CT of the abdomen today. Imaging revealed that the stone had moved further down the ureter however does have hydronephrosis at this time. He admits to having significant increase in pain, chills, shakes, constipation x3 days, poor appetite, reduced intake and dry heaves. Patient's pain is currently well controlled rated a 2 out of 10 in the left flank. Admission Exam Per Admitting Provider General: awake, alert, no apparent distress, + overweight, BMI 29.1 Head: Normocephalic, atraumatic ENT: PERRL, EOMI, no pharyngeal exudate, mucous membranes moist Chest: Clear to auscultation, on room air, no adventitious breath sounds Cardiac: Regular rate and rhythm, no murmur, no JVD, normal peripheral pulses, good capillary refill Abdominal: NABS x 4 quadrants, soft, + slightly distended, no tympany, nontender to palpation, no rebound or guarding, no Extremities: Normal inspection, no peripheral edema or erythema, calfs nontender to palpation Psych: Normal mood and affect Neuro: AAO x 3, strength intact bilaterally and rated 5/5, no motor deficits, speech is clear, no peripheral sensory deficits Principal Diagnosis L Nephrolithiasis Discharge Exam Constitutional well developed and well nourished Eyes PERRL, conjunctivae normal, anicteric sclerae ENMT external ear and nose normal, oropharynx normal Neck trachea midline, no thyromegaly Respiratory normal respiratory effort, lungs clear to auscultation Cardiovascular RRR, no murmur, no edema Gastrointestinal (Abdomen) normal bowel sounds, soft, nontender, no hepatosplenomegaly Musculoskeletal no cyanosis or clubbing, extremities motor strength 5/5 Genitourinary no CVA tenderness Discharge Data Allergies Allergy/AdvReac Type Severity Reaction Status Date / Time No Known Allergies Allergy Verified 05/28/20 14:04 Consultations 05/27/20 15:53 ED Decision to Admit Stat 05/27/20 18:12 Consult Case Management - Discharge Planning Routine Consult Urology Routine Procedures Performed Operation Date: 05/28/20 14:35 Actual Procedures p Cystoscopy, Left Ureteroscopic Laser Lithotripsy and Left Ureteral Stent Insertion(Left) - Ronny Hodge MD Ordered Studies 05/27/20 14:00 CT abd pelvis wo con Stat 05/28/20 14:00 FL KUB Routine FL fluoroscopy <1hr Routine Hospital Course (1) Left ureteral calculus: Patient is 70 year old male with PMHx BPH, Hypothyroidism, known L ureteral calculus that presented initially with worsening L sided flank pain, chills, and shakes. L Nephrolithiasis -Initial CT Ab/Pelv on 05/18/20 noting a 4mm obstructing calculus in the distal L ureter -Repeat CT Ab/Pelv on admission with similar stone now lodged in the vesicoureteral junction and moderate - severe L hydronephrosis -IVF and Flomax to encourage stone passage while inpatient -All urine strained -Tylenol and Toradol for pain management, recommend continued use of Tylenol and Ibuprofen as needed upon discharge. -Evaluated by Urology who took patient to the OR on 05/28/20 for Cystoscopy and laser lithotripsy of the stone with placement of a L ureteral stent -Patient tolerated well after procedure, discharged home with follow up with Urology. Acute kidney failure POA -obstructive -Creatinine improved to 1.3 with hydration from 1.85. BPH s/p LUTS -Continued home Flomax Hypothyroidism -Continued home Levothyroxine Constipation -Noted x3 days per patient on admission -Given Miralax on admission with bowel movement the following day. -Discussed with patient about bowel regiment including use of Miralax in outpatient setting, agreeable. Total Time Total Time Spent Total Time Spent (In Minutes): see attending attestation Discharge Plan Discharge Items Patient Disposition: Home - Self-Care Reason For Visit: NEPHROLITHIASIS Discharge Diagnosis: L sided Nephrolithiasis with Hydronephrosis Activity: Resume your previous activity Non-emergency contact: Primary Care Provider and Paper Bag Making Machinist Call non-emergency contact if: you have any medication questions, your symptoms worsen and your pain is not controlled Follow-up/Referrals: Ronny Hodge MD [Physician] - (F/U L ureteral stent removal, s/p laser lithotripsy 4mm stone ) Gaston Walsh [Primary Care Provider] - Diet: Regular Addtl Attending Provider Instructions: Mr. Wright, It was our pleasure caring for you at [facility] from 05/27- 05/28/20 for your kidney stones. During your admission you were found to have a 4mm kidney stone lodged at the junction between your left ureter and bladder. This was causing urine to build up in your ureter and into your kidney which, in addition to the pain from the stone, was causing stone in your left flank and back. You were given pain medication and IV fluids in hopes that you would pass the stone on your own, but ultimately were evaluated by our Urologists who took you into the operating room in order to break the stone up. A urinary stent was also placed at that time to assist in allowing the urine to continue to drain while your ureter recovered. At this time we feel it is acceptable for you to be discharged home. Please continue to take your home medications as prescribed. You can continue to take Tylenol and Ibuprofen over the counter as needed for pain. A follow up appointment will also be made for you to follow up with Urology, please expect a phone call from them within the next couple of days. If your symptoms should return or worsen, please contact your Urologist or come to the ED for reevaluation. Pending Studies at Discharge: No Stand-Alone Forms: My [facility], Smoking Cessation Medications and DC Order Prescriptions: Continued tamsulosin [Flomax] 0.4 mg capsule 0.4 mg PO QPM Qty: 30 RF: 2 alprazolam [Xanax] 1 mg Tablet 0.25 mg PO QAM RF: 0 gemfibrozil 600 mg Tablet 600 mg PO BID RF: 0 levothyroxine [Synthroid] 50 mcg Tablet 50 mcg PO QAM RF: 0 coQ10 (ubiquinol) 200 mg Capsule 200 mg PO QPM RF: 0 cyanocobalamin (vitamin B-12) 1,000 mcg Capsule 1,000 mcg PO DAILY RF: 0 cyanocobalamin (vitamin B-12) 1,000 mcg/mL Solution 0 mcg IM DAILY RF: 0 Discharge Orders: Discharge Order (Routine); Ordered 05/28/20 Ordered By: Hemant Amezcua/Other Patient Handouts: Kidney Stones Expectant Tx, Preventing Kidney Stones Admission Data Admit Date/Time: 05/27/20 16:18 Attending Provider: Lizette Haskins Admit Provider: Akilah Knapp Primary Care Provider: Gaston Walsh Other Providers: Hemant Morton ; Mayo Sandhu Other Interventions: Discharge Summary Assessment (RN) Last Done: 05/28/20 17:14 Supervising Physician Co-Signing Physician Notes Resident Physician Supervision Note: I independently interviewed and examined the patient and verified the fernandes history and physical, reviewed labs and image studies, discussed the case with the resident Dr. Rios and agree with the findings and care plan. Resident Activity Tracking Resident Involvement: Resident Care Provided Care Provided: Adult Hospital Medicine
== END 2020-05-28 18:29 | disposition home or self-care (01) ==
LOC: ED 12:16 → INTOOBSV 16:18 → 3W 16:18 → SUATTDRO 16:18 → 3W 17:58

== ENCOUNTER 2022-08-08 06:09 | Inpatient (IN) ==
--- NOTE | 2022-07-18 11:26 | PAT Medication Instructions ---
Medication Instructions Date of Service July 18, 2022 Home Medications Medication Instructions Recorded oxycodone 5 mg tablet 5 mg PO Q6H #12 tabs 03/03/22 coQ10 (ubiquinol) 200 mg capsule 200 mg PO QPM cyanocobalamin (vitamin B-12) 1,000 mcg capsule 1,000 mcg PO QDL levothyroxine 50 mcg tablet (Synthroid) 75 mcg PO UD atorvastatin 20 mg tablet 20 mg PO HS gabapentin 300 mg tablet 300 mg PO HS levothyroxine 50 mcg tablet 50 mcg PO UD melatonin 5 mg tablet 5 mg PO HS PRN Sleep multivitamin 1 tab PO QAM oxycodone 5 mg tablet 5 mg PO Q6H lisinopril 20 mg tablet 20 mg PO QAM STOP taking 2 weeks before surgery (or as soon as possible if surgery is within 2 weeks) coQ10 (ubiquinol) 200 mg capsule 200 mg PO QPM DO NOT take the morning of surgery cyanocobalamin (vitamin B-12) 1,000 mcg capsule 1,000 mcg PO QDL multivitamin 1 tab PO QAM lisinopril 20 mg tablet 20 mg PO QAM Take morning of surgery With a small sip of water, OTHERWISE NOTHING TO EAT OR DRINK AFTER MIDNIGHT: levothyroxine 50 mcg tablet (Synthroid) oxycodone 5 mg tablet 5 mg PO Q6H Take evening before surgery atorvastatin 20 mg tablet 20 mg PO HS gabapentin 300 mg tablet 300 mg PO HS melatonin 5 mg tablet 5 mg PO HS PRN Sleep (if needed) oxycodone 5 mg tablet 5 mg PO Q6H Other Notes If you have any questions please call us at [phone] or [phone] or [phone] or [phone]
--- NOTE | 2022-07-20 10:13 | PAT Medication Instructions ---
Medication Instructions Date of Service July 20, 2022 Home Medications Medications coQ10 (ubiquinol) 200 mg capsule 200 mg PO QPM 08/14/18 [History Confirmed 07/18/22] cyanocobalamin (vitamin B-12) 1,000 mcg capsule 1,000 mcg PO QDL 08/14/18 [History Confirmed 07/18/22] levothyroxine 50 mcg tablet (Synthroid) 75 mcg PO UD 08/14/18 [History Confirmed 07/18/22] atorvastatin 20 mg tablet 20 mg PO HS 12/01/21 [History Confirmed 07/18/22] gabapentin 300 mg tablet 300 mg PO HS 12/01/21 [History Confirmed 07/18/22] levothyroxine 50 mcg tablet 50 mcg PO UD 12/01/21 [History Confirmed 07/18/22] melatonin 5 mg tablet 5 mg PO HS PRN Sleep 12/01/21 [History Confirmed 07/18/22] multivitamin 1 tab PO QAM 12/01/21 [History Confirmed 07/18/22] lisinopril 20 mg tablet 20 mg PO QAM 06/27/22 [History Confirmed 07/18/22] omega-3 fatty acids See Rx Instructions .Route .COMPLEX 07/20/22 [History Confirmed 07/20/22] Continue as directed coQ10 (ubiquinol) 200 mg capsule 200 mg PO QPM cyanocobalamin (vitamin B-12) 1,000 mcg capsule 1,000 mcg PO QDL levothyroxine 50 mcg tablet (Synthroid) 75 mcg PO UD atorvastatin 20 mg tablet 20 mg PO HS gabapentin 300 mg tablet 300 mg PO HS levothyroxine 50 mcg tablet 50 mcg PO UD melatonin 5 mg tablet 5 mg PO HS PRN Sleep multivitamin 1 tab PO QAM lisinopril 20 mg tablet 20 mg PO QAM omega-3 fatty acids See Rx Instructions .Route .COMPLEX STOP taking 2 weeks before surgery (or as soon as possible if surgery is within 2 weeks) coQ10 (ubiquinol) 200 mg capsule 200 mg PO QPM omega-3 fatty acids See Rx Instructions .Route .COMPLEX DO NOT take the morning of surgery cyanocobalamin (vitamin B-12) 1,000 mcg capsule 1,000 mcg PO QDL multivitamin 1 tab PO QAM lisinopril 20 mg tablet 20 mg PO QAM Take morning of surgery With a small sip of water, OTHERWISE NOTHING TO EAT OR DRINK AFTER MIDNIGHT: levothyroxine Take evening before surgery atorvastatin 20 mg tablet 20 mg PO HS gabapentin 300 mg tablet 300 mg PO HS melatonin 5 mg tablet 5 mg PO HS PRN Sleep (if needed) Other Notes If you have any questions please call us at [phone] or [phone] or [phone] or [phone]
--- NOTE | 2022-07-25 11:19 | Anesthesiology Consultation ---
Date of Service July 25, 2022 Assessment & Plan (1) Encounter for pre-operative examination: - COVID screening: Per assessment on 07/25: No known COVID-19 positive contacts or current COVID-19 related symptoms. Travel screen negative. Patient vaccinated. At surgeon discretion if preop Covid testing being done. - S/P Right scrotal hydrocelectomy (03/03/22): LMA 5.0 at [facility]. No issues noted per post-op anesthesia progress note. Chart Review Chart Review: Acceptable Risk for Surgery and Patient seen in Pre Admission Testing Teaching & Discussion Pre-Anesthesia Teaching/Discussion Notes: Instructed NPO after midnight before surgery,except medications with 15 cc of water. Medication instructions provided according to the PAT guidelines. History Surgery Operation Date: 08/08/22 07:45 Proposed Procedures p L2-L3 Decompression and Fusion, L3-S1 Hardware Removal, Spinal Cord Monitoring - Alan Burton DO Height/Weight Height: 6 ft 2 in Weight: 106.5 kg Allergies Allergy/AdvReac Type Severity Reaction Status Date / Time No Known Allergies Allergy Verified 06/27/22 14:45 Medications Home Medications Medication Instructions Recorded Confirmed Last Taken coQ10 (ubiquinol) 200 mg capsule 200 mg PO QPM 08/14/18 07/18/22 02/27/22 cyanocobalamin (vitamin B-12) 1,000 mcg PO QDL 08/14/18 07/18/22 02/24/22 1,000 mcg capsule levothyroxine 50 mcg tablet 75 mcg PO UD 08/14/18 07/18/22 03/02/22 08:00 (Synthroid) atorvastatin 20 mg tablet 20 mg PO HS 12/01/21 07/18/22 03/02/22 22:00 gabapentin 300 mg tablet 300 mg PO HS 12/01/21 07/18/22 03/02/22 22:00 levothyroxine 50 mcg tablet 50 mcg PO UD 12/01/21 07/18/22 03/03/22 06:00 melatonin 5 mg tablet 5 mg PO HS PRN Sleep 12/01/21 07/18/22 03/02/22 22:00 multivitamin 1 tab PO QAM 12/01/21 07/18/22 02/24/22 lisinopril 20 mg tablet 20 mg PO QAM 06/27/22 07/18/22 Unknown omega-3 fatty acids See Rx Instructions .Route .COMPLEX 07/20/22 07/20/22 Unknown turmeric 1 tab PO DAILY 07/25/22 07/25/22 Unknown Past Medical History Medical History Anxiety BPH with obstruction/lower urinary tract symptoms Chronic back pain Degenerative disc disease History of COVID-19 07/2021- cough, congestion, fatigue > no current issues Hyperlipidemia Hypothyroidism Spinal stenosis Exercise / Class Metabolic Activity II 4-5 Yardwork/Stairs/Walk up hill Past Family History Family History Other No family history of adverse response to anesthesia Past Surgical History Surgical History H/O parathyroidectomy 06/22/2022 [facility] (done for thyroid nodule/lab dysfunction per patient) History of cataract surgery History of eye surgery as a child History of hydrocelectomy Right scrotal hydrocelectomy (03/03/22): LMA 5.0 at [facility]. No issues noted per post-op anesthesia progress note. History of wisdom tooth extraction S/P lumbar spine operation 2019 S/P removal of thyroid nodule 06/22/2022 [facility] (done for thyroid nodule/lab dysfunction per patient) S/P rotator cuff surgery right Past Anesthesia History No Hx of Anesthesia Complications and No Family Hx of Anesthesia Complications History of PONV No Hx of PONV and No Hx of Motion Sickness Social History Smoking Status: Never smoker Do You Dip or Chew Tobacco: No Hx Alcohol Use: Yes Alcohol type: beer alcohol intake frequency: 0-2 drinks per day (0-1 drinks/day) Hx Substance Use: No substance use type: does not use Review of Systems Patient denies chest pain, shortness of breath, dyspnea on exertion, fever, chills, cough, wheezing, palpitations. Physical Exam Vital Signs VITALS BP 142/82 P 71 TEMP 98.2 SP02 96%RA RESP 18 PHYSICAL Full cervical extension range of motion. Full TMJ range of motion. TMD 3 finger breaths Mallampati Score 3 Dentition: upper partial Lungs: clear throughout to auscultation Cardiac: regular rate and rhythm, no murmurs noted Spine: normal Carotid arteries: negative bruit Extremities: no edema Lab Results Anesthesia Preop Results Results Anesthesia Widget: WBC 10.34 K/ul (4.8-10.8) 07/25/22 Hgb 14.8 g/dl (14.0-18.0) 07/25/22 Hct 44.4 % (42.0-52.0) 07/25/22 Plt 173 K/uL (130-400) 07/25/22 Na 140 mmol/L (136-145) 07/25/22 K 3.9 mmol/L (3.5-5.1) 07/25/22 Cl 106 mmol/L (98-107) 07/25/22 CO2 30 mmol/L (21-32) 07/25/22 BUN 17 mg/dl (6-23) 07/25/22 Creat 1.06 mg/dl (0.6-1.4) 07/25/22 Glucose Level 73 mg/dl (70-99(Fasting)) 07/25/22 PT 10.9 Seconds (9.0-12.0) 07/25/22 PTT 28.5 Seconds (21.0-31.0) 07/25/22 INR 1.0 (0.9-1.1) 07/25/22 Urine Color Yellow 07/25/22 Urine Appearance Clear (Clear) 07/25/22 Urine pH 5.5 (4.5-7.5) 07/25/22 Urine Specific [place] 1.020 (1.000-1.030) 07/25/22 Urine Protein Negative (Negative) 07/25/22 Urine Glucose (UA) Negative (Negative) 07/25/22 Urine Ketones Negative (Negative) 07/25/22 Urine Blood Negative (Negative) 07/25/22 Urine Nitrite Negative (Negative) 07/25/22 Urine Bilirubin Negative (Negative) 07/25/22 Urine Urobilinogen Negative (Negative) 07/25/22 Urine Leukocyte Esterase Negative (Negative) 07/25/22 Blood Type A Positive 07/25/22 Antibody Screen NEGATIVE 07/25/22 Testing Electrocardiogram Date: 06/16/22 NSR with sinus arrhythmia at 62bpm. NS TWA. Chest X-Ray Date: 12/02/21 Findings: + NAD COVID-19 Risk Screen Screening Information COVID-19 Screen Date: 07/25/22 Exposure 21 Days Family/Household +COVID Last 21 Days: No Exposure 10 Days Any COVID Exposure Last 10 Days: No Symptoms Last 10 Days Experienced COVID Sx Last 10 Days: No + COVID 0-90 Days COVID + in Last 0-90 Days: No
[~2022-08-08 06:09] MED LIST changes: -CEFAZOLIN 2000MG 2,000 MG/15 ML SYR IV SCH; +GABAPENTIN 300 MG CAP PO SCH; -GABAPENTIN 300 MG PO SCH; -HYDROmorphone INJ 2 MG/ML SYR/VIAL ONE; +LR 15ML/HR IV SCH; -MIDAZOLAM HCL 1 MG/ML 2ML VIAL ONE; +ceFAZolin 2000MG 2,000 MG/15 ML SYR IV SCH; -fentaNYL citrate 100 MCG/2 ML VIAL ONE
[2022-08-08] MEDS ORDERED: PROPOFOL IV EMULSION 10 MG/ML 20 ML VIAL IV ONE (07:03)
[2022-08-08] MEDS ORDERED: ROCURONIUM BROMIDE 10 MG/ML 5 ML VIAL IV ONE ×8 (07:04→09:30)
[2022-08-08] MEDS ORDERED: ceFAZolin 330 MG/ML 1 GM VIAL ONE (07:05)
[2022-08-08] MEDS ORDERED: BUPIVACAINE/EPINEPHRINE 0.25% 1:200,000 30 ML VIAL ONE (07:05)
[2022-08-08] MEDS ORDERED: LIDOCAINE 2% MPF LOCAL 5 ML VIAL ONE (07:06)
[2022-08-08] MEDS ORDERED: fentaNYL citrate PF 100 MCG/2 ML VIAL ONE (07:15)
[2022-08-08] MEDS ORDERED: ePHEDrine sulfate 50 MG/ML AMP IV PRN (07:20)
[2022-08-08] MEDS ORDERED: ATROPINE SULFATE 0.1 MG/ML 10ML SYR IV PRN (07:20)
[2022-08-08] MEDS ORDERED: ONDANSETRON INJ 2 MG/ML 2 ML VIAL IV PRN ×2 (07:20→11:20)
[2022-08-08] MEDS ORDERED: HYDROmorphone INJ 2 MG/ML SYR/VIAL IV PRN (07:20)
--- NOTE | 2022-08-08 07:28 | History & Physical Bridge Note ---
Date of Service August 08, 2022 History & Physical Bridge Note I have examined the patient, reviewed the History & Physical and in the interval since the performance of the History & Physical I have noted the following changes of clinical significance: no changes noted
--- NOTE | 2022-08-08 07:29 | History & Physical Report ---
Date of Service August 08, 2022 Assessment & Plan (1) Spinal stenosis, lumbar region with neurogenic claudication: Plan: L2-L3 decompression and fusion, L3-S1 hardware removal History of Present Illness Chief Complaint: Back and leg pain Primary Care Provider: Chun Frias MD This is a 72-year-old male who presents with chronic persistent back and leg pain after failing extensive course of nonoperative care is here for surgical intervention Allergies Allergy/AdvReac Type Severity Reaction Status Date / Time No Known Allergies Allergy Verified 08/08/22 06:31 Home Medications Medication Instructions Recorded Confirmed Type coQ10 (ubiquinol) 200 mg capsule 200 mg PO QPM 08/14/18 08/08/22 History cyanocobalamin (vitamin B-12) 1,000 mcg PO QDL 08/14/18 08/08/22 History 1,000 mcg capsule levothyroxine 50 mcg tablet 75 mcg PO UD 08/14/18 08/08/22 History (Synthroid) atorvastatin 20 mg tablet 20 mg PO HS 12/01/21 08/08/22 History gabapentin 300 mg tablet 300 mg PO HS 12/01/21 08/08/22 History levothyroxine 50 mcg tablet 50 mcg PO UD 12/01/21 08/08/22 History melatonin 5 mg tablet 5 mg PO HS PRN Sleep 12/01/21 08/08/22 History multivitamin 1 tab PO QAM 12/01/21 08/08/22 History lisinopril 20 mg tablet 20 mg PO QAM 06/27/22 08/08/22 History omega-3 fatty acids See Rx Instructions .Route .COMPLEX 07/20/22 08/08/22 History turmeric 1 tab PO DAILY 07/25/22 08/08/22 History Past Med/Surg History Medical History Anxiety BPH with obstruction/lower urinary tract symptoms Chronic back pain Degenerative disc disease History of COVID-19 07/2021- cough, congestion, fatigue > no current issues Hyperlipidemia Hypothyroidism Spinal stenosis Surgical History H/O parathyroidectomy 06/22/2022 [facility], [place], operated by [facility] (done for thyroid nodule/lab dysfunction per patient) History of cataract surgery History of eye surgery as a child History of hydrocelectomy Right scrotal hydrocelectomy (03/03/22): LMA 5.0 at [facility]. No issues noted per post-op anesthesia progress note. History of wisdom tooth extraction S/P lumbar spine operation 2019 S/P removal of thyroid nodule 06/22/2022 [facility], [place], operated by [facility] (done for thyroid nodule/lab dysfunction per pat ient) S/P rotator cuff surgery right Family History Other No family history of adverse response to anesthesia Social History Smoking Status: Never smoker Second Hand Exposure: No; Do You Dip or Chew Tobacco: No; Hx Alcohol Use: Yes Alcohol type: beer Hx Substance Use: No Preferred Language: Bahraini Communication Ability: Effective Tire Wrapper Required: No Beliefs That Will Affect Care: None Current Living Situation: Alone Feels Safe at Home: Yes Safety Concerns: Feels Safe At This Time Assistive Devices: Denture - Upper and Glasses Physical Exam Physical Exam: Patient is alert and oriented Heart regular rhythm Lungs clear Results & Data Results & Data Vital Signs (Past 12 Hours) Vital Signs Temp Pulse Resp BP Pulse Ox O2 Del Method 08/08/22 06:35 36.6 C 64 20 180/88 H 98 Room Air
[2022-08-08] MEDS ORDERED: FLOSEAL HEMOSTATIC MATRIX 10ML TOP ONE (08:51)
[2022-08-08] MEDS ORDERED: PHENYLEPHRINE 100MCG/ML 5ML SYR ONE (08:51)
[2022-08-08] MEDS ORDERED: ePHEDrine sulfate 50 MG/ML SYR ONE (08:52)
[2022-08-08] MEDS ORDERED: HYDROmorphone INJ 2 MG/ML SYR/VIAL ONE (09:15)
[2022-08-08] MEDS ORDERED: ONDANSETRON INJ 2 MG/ML 2 ML VIAL ONE (09:15)
[2022-08-08] MEDS ORDERED: DEXAMETHASONE SOD INJ 4 MG/ML VIAL ONE ×2 (09:15)
[2022-08-08] MEDS ORDERED: GLYCOPYRROLATE 0.2 MG/ML VIAL ONE ×2 (09:17)
--- NOTE | 2022-08-08 09:45 | Operative Report ---
Post Operative Report Pre & Post Diagnosis Operation Date: 08/08/22 07:45 Pre-Op Diagnosis: Spinal Stenosis, Lumbar Region with Neurogenic Claudication Post-Op Diagnosis: Spinal Stenosis, Lumbar Region with Neurogenic Claudication I identified the patient and participated in the time-out.: Yes Procedure Operation Date: 08/08/22 07:45 Actual Procedures #1 removal of instrumentation L3-S1. #2 exploration of fusion L3-S1. #3 lumbar decompression bilaterally facetectomies and foraminotomies L1-L2 L2-L3 per #4 posterior spinal fusion L2-L3. #5 placement posterior instrumentation L2-S1. #6 interbody fusion L2-L3. #7 placement of Spira 14 x 26 mm cage at L2-L3. #8 placement locally harvested morselized autograft in the posterior gutters. #9 placement of I factor amount of the talus in the interbody space and posterior lateral gutters. Surgeon Alan Burton, Manager Communication Pebbles Chandra Estimated Blood Loss 400 Findings Consistent with Post-Op Diagnosis Specimens None Indications This is a 72-year-old male who presents above-mentioned diagnosis after failed course of nonoperative care is here for surgical intervention. Description of Procedure Patient was met with identified informed consent obtained. Patient was then taken to the operative suite underwent a patient placed in a prone position on the Juan table atop the Rafi frame. All bony prominences well-padded eyes inspected to ensure no external pressure placed upon them. Lumbar spine was then prepped and draped in a sterile fashion. Sharp dissection with the assistance of Bovie cautery was then performed down to and exposing the lamina transverse processes of L2 and the instrumentation at L3 L4-5 and S1 levels bilaterally. Then proceeded move the hardware bilaterally explore the fusion mass noting it to be mature and intact. Then performed a complete laminectomy of L2 partial laminectomy of L1 including bilateral medial facetectomies and foraminotomies addressing severe spinal stenosis. Pedicle screws were then placed in L2-L3 and S1 bilaterally with assistance of fluoroscopy and appr opriate sized vimal placed. By way of a trans foraminal approach on the left complete discectomy of L2-L3 was performed endplates curetted to subcortical bleeding bone and a 14 x 26 mm Spira cage with I factor tapped in position. The rods were then locked into final position bilaterally. The transverse processes of L2 and L3 burred to subcortically bone. I factor combined with the cost and locally harvested morselized autograft placed in the posterior gutters. 15 round ISAIAS drain inserted. The incision was then closed with 1 Vicryl the fascia 2-0 Vicryl subcutaneously and 4 Monocryl for final skin closure. Steri-Strips and sterile dressing placed. Patient waken taken to PACU in stable condition. Please note spinal cord monitoring was utilized at the procedure no changes noted. Lastly Pebbles Chandra was present at the entire surgery and while the patient positioning complex portions of the surgery and final skin closure. I attest to the content of the Intraoperative Record and any orders documented therein. Any exceptions are noted below.
[2022-08-08] MEDS: fentaNYL citrate PF 100 MCG/2 ML VIAL IV PRN ×2 (10:12→10:17)
--- NOTE | 2022-08-08 10:41 | Anesthesiology Progress Note ---
Date of Service August 08, 2022 Anesthesia Post Procedure Vital Signs Vital Signs: Temp Pulse Resp BP Pulse Ox O2 Del Method O2 Flow Rate 08/08/22 10:30 70 16 119/66 92 Room Air 08/08/22 10:20 66 12 117/70 96 Oxymask 6 08/08/22 10:10 77 11 L 133/71 97 Oxymask 6 08/08/22 10:02 36.1 C L 90 15 130/75 96 Oxymask 6 08/08/22 06:35 36.6 C 64 20 180/88 H 98 Room Air Pain Intensity Lower Back: Pain Intensity: 4 Transfer of Care Handoff Completed per policy Notes Mental Status: alert / awake / arousable and participated in evaluation Patient Amnestic to Procedure: Yes Nausea / Vomiting: adequately controlled Pain: adequately controlled Airway Patency, RR, SpO2: stable & adequate BP & HR: stable & adequate Hydration State: stable & adequate Anesthetic Complications: no major complications apparent and Pt Satisfied with anesthetic care
--- NOTE | 2022-08-08 11:14 | Fluoroscopy Report ---
FL lumbar spine 2-3V CLINICAL HISTORY: L2-L3 Decompression/fusion. L3-S1 Hardware removal COMPARISON STUDY: Lumbar spine MRI February 14, 2017. Lumbar spine fluoroscopic images September 03, 2018. CT of the abdomen and pelvis May 27, 2020. FLUOROSCOPY TIME: 10 seconds. Ka, r: 8.44 mGy FLUOROSCOPIC IMAGES: 3 FINDINGS: Hardware removal was performed. Exact localization is difficult given partial visualization of the lumbar spine. However, these images demonstrate suspected previous L3-L4 and L4-L5 discectomi es with interbody spacer placement. There is interval L2-L3 discectomy. Multilevel posterior decompre ssion and fusion is present. IMPRESSION: Fluoroscopy provided during hardware removal and interval L2-L3 discectomy and multileve l fusion. ACT 112: Negative or not required by law. Electronically signed by: Jamie Colvin M.D. 08/08/2022 11:13 AM
[2022-08-08] MEDS ORDERED: SOD PHOSPHATE/SOD BIPHOSPHATE ENEMA 132 ML BTL PR PRN (11:20)
[2022-08-08] MEDS ORDERED: ALUMINUM/MAGNESIUM SUSP 30 ML UDC PO PRN (11:20)
[2022-08-08] MEDS ORDERED: HYDROmorphone INJ 1 MG/ML SYRINGE IV PRN (11:20)
[2022-08-08] MEDS ORDERED: ONDANSETRON 4 MG OD TAB PO PRN (11:20)
[2022-08-08] MEDS ORDERED: LORazepam 0.5 MG TAB PO PRN (11:20)
[2022-08-08] MEDS ORDERED: PROMETHAZINE HCL 12.5 MG in SODIUM CHLORIDE 0.9% 50 ML IV PRN (11:20)
[2022-08-08] MEDS ORDERED: LORazepam 2 MG/1 ML VIAL IV PRN (11:20)
[2022-08-08] MEDS ORDERED: FAMOTIDINE 20 MG TAB PO PRN (11:20)
[2022-08-08] MEDS ORDERED: oxyCODONE HCL IR 5 MG TAB (IMMEDIATE RELEASE) PO PRN (11:20)
[2022-08-08] MEDS ORDERED: traMADol HCL 50 MG TABLET PO PRN (11:20)
[2022-08-08] MEDS ORDERED: ACETAMINOPHEN 1,000 MG/100 ML VIAL IV PRN (11:20)
[2022-08-08] MEDS ORDERED: MAGNESIUM HYDROXIDE SUSP 30 ML UDC PO PRN (11:20)
[2022-08-08] MEDS ORDERED: METOCLOPRAMIDE HCL INJ 5 MG/ML 2 ML VIAL IV PRN (11:20)
[2022-08-08] MEDS ORDERED: NALOXONE HCL 0.4 MG/1 ML VIAL/CARP IV PRN (11:20)
[2022-08-08] MEDS ORDERED: diphenhydrAMINE Capsule 25 MG CAP PO PRN (11:20)
[2022-08-08] MEDS ORDERED: HYDROmorphone INJ 0.5 MG/0.5 ML SYR IV PRN (11:20)
[2022-08-08] MEDS ORDERED: DO NOT ADMINISTER FLU VACCINE PRN (11:20)
[2022-08-08] MEDS ORDERED: DO NOT ADMINISTER PNEUMOCOCCAL VACCINE PRN (11:20)
[2022-08-08] MEDS ORDERED: bisacodyL 10 MG SUPP PR PRN (11:20)
[2022-08-08] MEDS ORDERED: hydrOXYzine HCl 25 MG TAB PO PRN (11:20)
[2022-08-08] MEDS: LEVOTHYROXINE SODIUM 75 MCG TABLET PO SCH (12:45)
--- NOTE | 2022-08-08 12:45 | Hospitalist Consultation ---
Date of Consultation August 08, 2022 Assessment & Plan (1) Spinal stenosis, lumbar region with neurogenic claudication: POD#0 L2-L3 decompression and fusion, L3-S1 hardware removal by Dr. Burton Activity and wound care orders as per ortho Pain control with bowel regimen PT/OT Monitor H/H for acute blood loss anemia and transfuse blood products PRN EBL 400cc (2) HTN (hypertension): BP controlled, continue lisinopril (3) Hyperlipidemia: Continue statin (4) Hypothyroidism: Continue levothyroxine DVT PROPHYLAXIS Teds/SCDs as per spine Ortho Patient seen in collaboration with Dr. Tony. I spent a total of 45 minutes coordinating, documenting, and providing care for this patient excluding time spent in the performance of separately billed services. This included personally reviewing all current laboratories and imaging studies, medication reconciliation, outpatient chart review, and discussion with specialists. Supervising Physician Co-Signing Physician Notes Pt was seen and examined. Agreed with Madison DE LA CRUZ exam, assessment and plan. 72-year-old male with PMH hypothyroidism, hyperlipidemia, HTN, failed conservative therapy for chronic low back pain. S/P L2-L3 decompression and fusion, L3-S1 hardware removal by Dr. Burton. Hospitalist was consulted for postop medical management. No postop complication. Continue Incentive spirometry. Pain control as per ortho. PT/OT eval. Continue monitor H/H. fall precaution. MD Chavo History of Present Illness Reason for Consultation: Postop medical management Requesting Physician: Dr. Burton Attending Physician: Alan Burton DO History of Present Illness 72-year-old male with PMH hypothyroidism, hyperlipidemia, HTN, and other problem listed below who is s/p L2-L3 decompression and fusion, L3-S1 hardware removal by Dr. Burton. History obtained from the patient. Postoperatively, the patient is doing well. He reports his pain is well controlled. He denies numbness, tingling, weakness of the lower extremities. No chest pain or shortness of breath. Denies abdominal pain or nausea. No lightheadedness or dizziness. Aguilera catheter is in place draining clear yellow urine. Allergies Allergy/AdvReac Type Severity Reaction Status Date / Time No Known Allergies Allergy Verified 08/08/22 06:31 Home Medications Medication Instructions Recorded Confirmed Type coQ10 (ubiquinol) 200 mg capsule 200 mg PO QPM 08/14/18 08/08/22 History cyanocobalamin (vitamin B-12) 1,000 mcg PO QDL 08/14/18 08/08/22 History 1,000 mcg capsule levothyroxine 50 mcg tablet 75 mcg PO UD 08/14/18 08/08/22 History (Synthroid) atorvastatin 20 mg tablet 20 mg PO HS 12/01/21 08/08/22 History gabapentin 300 mg tablet 300 mg PO HS 12/01/21 08/08/22 History levothyroxine 50 mcg tablet 50 mcg PO UD 12/01/21 08/08/22 History melatonin 5 mg tablet 5 mg PO HS PRN Sleep 12/01/21 08/08/22 History multivitamin 1 tab PO QAM 12/01/21 08/08/22 History lisinopril 20 mg tablet 20 mg PO QAM 06/27/22 08/08/22 History omega-3 fatty acids See Rx Instructions .Route .COMPLEX 07/20/22 08/08/22 History turmeric 1 tab PO DAILY 07/25/22 08/08/22 History oxycodone 5 mg tablet 5 mg PO DAILY PRN pain #30 tabs 08/08/22 Rx tramadol 50 mg tablet 50 mg PO Q6H PRN pain, moderate 08/08/22 Rx #30 tabs Patient History Medical History Anxiety BPH with obstruction/lower urinary tract symptoms Chronic back pain Degenerative disc disease Hematocele History of COVID-19 07/2021- cough, congestion, fatigue > no current issues HTN (hypertension) Hyperlipidemia Hypothyroidism Nephrolithiasis PTSD (post-traumatic stress disorder) Right hydrocele Spermatocele Spinal stenosis Surgical History H/O parathyroidectomy 06/22/2022 [facility] (done for thyroid nodule/lab dysfunction per patient) History of cataract surgery History of eye surgery as a child History of hydrocelectomy Right scrotal hydrocelectomy (03/03/22): LMA 5.0 at [facility]. No issues noted per post-op anesthesia progress note. 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: No Beliefs That Will Affect Care: None Current Living Situation: Alone Feels Safe at Home: Yes Safety Concerns: Feels Safe At This Time Assistive Devices: Denture - Upper and Glasses Review of Systems Review of Systems: ROS per HPI, all other systems reviewed and negative Physical Exam Constitutional: WD/WN, vitals as above Eyes: PERRL, conjunctivae normal, anicteric sclerae ENMT: external ear and nose normal, oropharynx normal Respiratory: normal respiratory effort, lungs clear to auscultation Cardiovascular: Rate/Rhythm: regular rate and regular rhythm Vessels: normal peripheral pulses Extremities: no edema Gastrointestinal (Abdomen): normal bowel sounds, soft, nontender, no hepatosplenomegaly Musculoskeletal: S/p back surgery, drain in place draining a small amount of bloody drainage Skin: no rashes, warm and dry Neurologic: PERRL, EOMI, accommodation nl, no face palsy, no dysarthria Psychiatric: A+Ox3, euthymic affect Results & Data Results & Data Vital Signs (Past 12 Hours) Vital Signs Temp Pulse Pulse Resp BP Pulse Ox O2 Del Method 08/08/22 12:01 78 18 130/73 97 Room Air 08/08/22 11:34 36.3 C L 69 18 126/82 94 Room Air 08/08/22 11:00 36.3 C L 68 18 129/72 95 Room Air 08/08/22 10:50 67 16 118/63 95 Room Air 08/08/22 10:40 36.3 C L 64 16 114/60 98 Room Air 08/08/22 10:30 70 16 119/66 92 Room Air 08/08/22 10:20 66 12 117/70 96 Oxymask 08/08/22 10:10 77 11 L 133/71 97 Oxymask 08/08/22 10:02 36.1 C L 90 15 130/75 96 Oxymask 08/08/22 06:35 36.6 C 64 20 180/88 H 98 Room Air O2 Flow Rate 08/08/22 12:01 08/08/22 11:34 08/08/22 11:00 08/08/22 10:50 08/08/22 10:40 08/08/22 10:30 08/08/22 10:20 6 08/08/22 10:10 6 08/08/22 10:02 6 08/08/22 06:35
[2022-08-08] MEDS: CYANOCOBALAMIN (B-12) 500 MCG TABLET PO SCH (12:46)
[2022-08-08] MEDS: LACTATED RINGER'S 1,000 ML IV SCH ×2 (12:46→20:39)
[2022-08-08] MEDS: ceFAZolin 2000MG 2,000 MG/15 ML SYR IV SCH ×2 (15:28→23:54)
[2022-08-08] MEDS ORDERED: CALCIUM CARBONATE 500 MG CHEWABLE TAB PO PRN (16:49)
[2022-08-08] MEDS: CALCIUM CARBONATE 500 MG CHEWABLE TAB PO SCH ×2 (17:41→20:38)
[2022-08-08] MEDS: DOCUSATE SODIUM/SENNA 50/8.6MG TAB PO SCH (20:38)
[2022-08-08] MEDS: ATORVASTATIN 20 MG TAB PO SCH (20:38)
[2022-08-08] MEDS: GABAPENTIN 300 MG CAP PO SCH (20:38)
[2022-08-08] MEDS: ACETAMINOPHEN 500 MG TAB PO PRN (22:02)
[2022-08-08] MEDS: MELATONIN 3 MG TAB PO PRN (22:03)
[2022-08-09] MEDS: LACTATED RINGER'S 1,000 ML IV SCH ×2 (03:22→09:38)
[2022-08-09 06:17] LABS: Basophils # (auto) 0.01 K/uL (0-0.2); Basophils % (auto) 0.1 %; Eosinophils # (auto) 0.01 K/uL (0-0.50); Eosinophils % (auto) 0.1 %; Hematocrit (blood only) 33.7 % (42.0-52.0); Hemoglobin 11.8 g/dl (14.0-18.0); Immature Granulocytes # (auto) 0.02 K/uL (0.01-0.20); Immature Granulocytes % (auto) 0.2 %; Lymphocytes % (auto) 40.4 %; Mean Corpuscular Hemoglobin 31.4 pg (25.0-34.0); Mean Corpuscular Volume 89.6 fL (80.0-100.0); Mean Platelet Volume 9.6 fL (9.4-12.4); Monocytes % (auto) 7.2 %; Platelet Count 143 K/uL (130-400); RDW Coefficient of Variation 13.5 % (11.5-14.5); Red Blood Count 3.76 M/uL (4.70-6.10); White Blood Count 11.14 K/ul (4.8-10.8)
[2022-08-09] MEDS: ACETAMINOPHEN 500 MG TAB PO PRN (06:20)
[2022-08-09] MEDS: POLYETHYLENE (MIRALAX) 17 GM PACK PO SCH ×4 (06:21→23:41)
[2022-08-09] MEDS ORDERED: LEVOTHYROXINE SODIUM 50 MCG TABLET PO SCH (06:30)
[2022-08-09 06:31] LABS: BUN Creatinine Ratio 17.6 (10-20); Calcium 8.2 mg/dl (8.6-10.3); Creatinine Clr Calc Pharmacy 95.3 ml/min; Est GFR (African American) 97.2 ml/min; Est GFR (Non-African American) 83.9 ml/min
[2022-08-09] MEDS: lisinopril 20 MG TAB PO SCH (08:43)
[2022-08-09] MEDS: CALCIUM CARBONATE 500 MG CHEWABLE TAB PO SCH ×2 (08:44→22:27)
[2022-08-09] MEDS: MULTIVITAMIN TAB PO SCH (08:44)
[2022-08-09] MEDS ORDERED: dexAMETHasone 6 MG in SYRINGE 0 ML IV SCH (09:00)
[2022-08-09] MEDS: dexAMETHasone 8 MG in SYRINGE 0 ML IV SCH (09:57)
--- NOTE | 2022-08-09 11:44 | Orthopedic Progress Note ---
Date of Service August 09, 2022 Assessment & Plan (1) Spinal stenosis, lumbar region with neurogenic claudication: Plan: This time initiate physical therapy monitor his ISAIAS operatively discharge home in the next few days. Admission and Anticipated Discharge Date Admission Date: August 08, 2022 Subjective Back pain controlled leg pain markedly improved Physical Exam Physical Exam: Patient is in the chair at the bedside. Is comfortable. Is good strength testing. Results & Data Vital Signs (Past 12 Hours) Vital Signs Temp Pulse Resp BP Pulse Ox O2 Del Method 08/09/22 11:39 36.5 C 69 16 138/75 96 Room Air 08/09/22 03:00 36.4 C L 72 18 123/62 96 Room Air
[2022-08-09] MEDS: CYANOCOBALAMIN (B-12) 500 MCG TABLET PO SCH (14:40)
--- NOTE | 2022-08-09 17:30 | Hospitalist Progress Note ---
Date of Service August 09, 2022 Assessment & Plan (1) Spinal stenosis, lumbar region with neurogenic claudication: Plan: S/P L2-L3 decompression and fusion, L3-S1 hardware removal by Dr. Burton on 08/08/22 Activity and wound care orders as per ortho Pain control with bowel regimen PT/OT Continue wound care Incentive spirometer Bowel regimen to prevent constipation (2) HTN (hypertension): Plan: continue lisinopril (3) Hyperlipidemia: Plan: Continue statin (4) Hypothyroidism: Plan: Continue levothyroxine DVT PROPHYLAXIS Teds/SCDs as per spine Ortho Admission and Anticipated Discharge Date Admission Date: August 08, 2022 Subjective Patient is seen and examined at bedside Ambulating in hallways this morning without any issues Back pain is minimal at surgical site Denies any chest pain, dyspnea, dizziness, nausea, abdominal pain No other complaints Review of Systems Review of Systems: All systems reviewed & are unremarkable except as noted in Subjective Physical Exam Physical Exam: Physical Exam: Vitals signs as noted above General Appearance:Moderately built and nourished, no apparent distress Head: normocephalic, Atraumatic Eyes: normal inspection, EOMI Neck: supple, Trachea midline Respiratory/Chest: Normal breath sounds, CTA, No accessory muscle use Cardiovascular: S1, S2, No murmur Abdomen/GI:Soft, Non tender, Bowel sounds present Back: Surgical site in dressing Extremities/Musculoskeletal:normal inspection, no edema Neurologic/Psych:AAOX3, grossly no focal neurological deficits Skin: normal color, warm Results & Data Results & Data Vital Signs (Past 12 Hours) Vital Signs Temp Pulse Resp BP Pulse Ox O2 Del Method 08/09/22 15:45 36.6 C 82 18 132/75 93 Room Air 08/09/22 07:30 36.6 C 79 16 123/57 L 92 Room Air 08/09/22 11:39 36.5 C 69 16 138/75 96 Room Air Laboratory Results Short CBC 08/09/22 Range/Units 05:52 WBC 11.14 H (4.8-10.8) K/ul Hgb 11.8 L (14.0-18.0) g/dl Hct 33.7 L (42.0-52.0) % Plt Count 143 (130-400) K/uL BMP 08/09/22 05:52 Sodium 140 Potassium 4.0 Chloride 109 H Carbon Dioxide 25 BUN 16 Creatinine 0.91 Glucose 119 H Calcium 8.2 L
[2022-08-09] MEDS: MELATONIN 3 MG TAB PO PRN (22:28)
[2022-08-09] MEDS: ATORVASTATIN 20 MG TAB PO SCH (22:28)
[2022-08-09] MEDS: GABAPENTIN 300 MG CAP PO SCH (22:29)
[2022-08-09] MEDS: DOCUSATE SODIUM/SENNA 50/8.6MG TAB PO SCH (22:29)
[2022-08-10] MEDS: LEVOTHYROXINE SODIUM 75 MCG TABLET PO SCH (05:26)
[2022-08-10] MEDS: ACETAMINOPHEN 500 MG TAB PO PRN (06:33)
[2022-08-10 07:41] LABS: Hematocrit (blood only) 34.4 % (42.0-52.0); Hemoglobin 11.9 g/dl (14.0-18.0); Mean Corpuscular Hemoglobin 30.7 pg (25.0-34.0); Mean Corpuscular Hgb Conc 34.6 g/dL (32.0-36.0); Mean Corpuscular Volume 88.9 fL (80.0-100.0); Mean Platelet Volume 9.5 fL (9.4-12.4); Platelet Count 179 K/uL (130-400); RDW Coefficient of Variation 14.1 % (11.5-14.5); RDW Standard Deviation 45.7 fL (36.4-46.3); Red Blood Count 3.87 M/uL (4.70-6.10); White Blood Count 15.51 K/ul (4.8-10.8)
[2022-08-10] MEDS: CALCIUM CARBONATE 500 MG CHEWABLE TAB PO SCH (08:27)
[2022-08-10] MEDS: MULTIVITAMIN TAB PO SCH (08:28)
[2022-08-10] MEDS: lisinopril 20 MG TAB PO SCH (08:28)
[2022-08-10] MEDS: dexAMETHasone 8 MG in SYRINGE 0 ML IV SCH (08:29)
[2022-08-10 09:29] LABS: BUN Creatinine Ratio 19.4 (10-20); Calcium 8.6 mg/dl (8.6-10.3); Creatinine Clr Calc Pharmacy 84.2 ml/min; Est GFR (African American) 83.7 ml/min; Est GFR (Non-African American) 72.2 ml/min; Potassium 3.9 mmol/L (3.5-5.1)
--- NOTE | 2022-08-10 10:21 | Hospitalist Progress Note ---
Date of Service August 10, 2022 Assessment & Plan (1) Spinal stenosis, lumbar region with neurogenic claudication: Plan: S/P L2-L3 decompression and fusion, L3-S1 hardware removal by Dr. Burton on 08/08/22 Activity and wound care orders as per ortho Pain control with bowel regimen PT/OT Continue wound care Incentive spirometer Bowel regimen to prevent constipation (2) HTN (hypertension): Plan: continue lisinopril (3) Hyperlipidemia: Plan: Continue statin (4) Hypothyroidism: Plan: Continue levothyroxine DVT PROPHYLAXIS Teds/SCDs as per spine Ortho Admission and Anticipated Discharge Date Admission Date: August 08, 2022 Subjective Patient seen in follow up med consult , pt s/p lumbar spine surgery Currently sitting up in a chair, in no acute distress Reports ambulating in hallways without any issues Back pain is minimal at surgical site Denies any chest pain, dyspnea, dizziness, nausea, abdominal pain Using bathroom w/o any difficulty Review of Systems Review of Systems: All systems reviewed & are unremarkable except as noted in Subjective Physical Exam Physical Exam: General Appearance:Moderately built and nourished, no apparent distress Head: normocephalic, Atraumatic Eyes: normal inspection, EOMI Neck: supple Respiratory/Chest: Normal breath sounds, CTA, No accessory muscle use Cardiovascular: S1, S2, No murmur Abdomen/GI:Soft, Non tender, Bowel sounds present Back: Surgical site in dressing Extremities/Musculoskeletal:normal inspection, no edema Neurologic/Psych:AAOX3, speech fluent, moves extremities Skin: normal color, warm Results & Data Results & Data Vital Signs (Past 12 Hours) Vital Signs Temp Pulse Resp BP Pulse Ox O2 Del Method 08/10/22 07:26 36.6 C 67 16 134/86 94 Room Air 08/09/22 22:38 Room Air Laboratory Results 08/10/22 08/10/22 Range/Units 07:23 07:23 WBC 15.51 H (4.8-10.8) K/ul RBC 3.87 L (4.70-6.10) M/uL Hgb 11.9 L (14.0-18.0) g/dl Hct 34.4 L (42.0-52.0) % MCV 88.9 (80.0-100.0) fL MCH 30.7 (25.0-34.0) pg MCHC 34.6 (32.0-36.0) g/dL RDW Std Deviation 45.7 (36.4-46.3) fL RDW Coeff of Cris 14.1 (11.5-14.5) % Plt Count 179 (130-400) K/uL MPV 9.5 (9.4-12.4) fL Sodium 141 (136-145) mmol/L Potassium 3.9 (3.5-5.1) mmol/L Chloride 107 (98-107) mmol/L Carbon Dioxide 26 (21-32) mmol/L Anion Gap 8 (3-11) BUN 20 (6-23) mg/dl Creatinine 1.03 (0.6-1.4) mg/dl Est Cr Clr Drug Dosing 84.2 ml/min Est GFR ( Amer) 83.7 ml/min Est GFR (Non-Af Amer) 72.2 ml/min BUN/Creatinine Ratio 19.4 (10-20) Glucose 97 (70-99(Fasting)) mg/dl Calcium 8.6 (8.6-10.3) mg/dl Medications Administered Current Inpatient Medications Acetaminophen (Acetaminophen 500 Mg Tab) 1,000 mg PO Q8H PRN PRN Reason: MILD Pain Scale 1,2,3 & Pre PT Stop: 09/07/22 11:19 Last Admin: 08/10/22 06:33 Dose: 1,000 mg Al Hydrox/Mg Hydrox/Simethicone (Aluminum/Magnesium Susp 30 Ml Udc) 30 ml PO Q6H PRN PRN Reason: Dyspepsia Stop: 09/07/22 11:19 Atorvastatin Calcium (Atorvastatin 20 Mg Tab) 20 mg PO HS LUL Stop: 09/07/22 20:59 Last Admin: 08/09/22 22:28 Dose: 20 mg Bisacodyl (Bisacodyl 10 Mg Supp) 10 mg TN DAILY PRN PRN Reason: Constipation Stop: 09/07/22 11:19 Calcium Carbonate (Calcium Carbonate 500 Mg Chewable Tab) 500 mg PO BID LUL Stop: 09/07/22 17:29 Last Admin: 08/10/22 08:27 Dose: 500 mg Cyanocobalamin (Cyanocobalamin (B-12) 500 Mcg Tablet) 1,000 mcg PO QDL LUL Stop: 09/07/22 11:29 Last Admin: 08/09/22 14:40 Dose: 1,000 mcg Diphenhydramine HCl (Diphenhydramine Capsule 25 Mg Cap) 25 mg PO Q6H PRN PRN Reason: Allergic Rhinitis/Insomnia Stop: 09/07/22 11:19 Famotidine (Famotidine 20 Mg Tab) 20 mg PO Q12H PRN PRN Reason: Dyspepsia Stop: 09/07/22 11:19 Gabapentin (Gabapentin 300 Mg Cap) 300 mg PO HS [facility] Stop: 09/07/22 20:59 Last Admin: 08/09/22 22:29 Dose: 300 mg Hydromorphone HCl (Hydromorphone Inj 0.5 Mg/0.5 Ml Syr) 0.5 mg IV Q3H PRN PRN Reason: MODERATE Pain (Scale 4,5,6) & Stop: 08/22/22 11:19 Hydromorphone HCl (Hydromorphone Inj 1 Mg/Ml Syringe) 1 mg IV Q3H PRN PRN Reason: SEVERE Pain (Scale 7,8,9,10) Stop: 08/22/22 11:19 Hydroxyzine HCl (Hydroxyzine Hcl 25 Mg Tab) 25 mg PO Q8H PRN PRN Reason: Anxiety Stop: 09/07/22 11:19 Promethazine HCl 12.5 mg/ (Sodium Chloride) 50.5 mls @ 202 mls/hr IV Q6H PRN PRN Reason: Nausea &/or Vomiting Stop: 09/07/22 11:19 Dexamethasone 8 mg/ Syringe 2 mls @ 1 mls/min IV DAILY [facility] Stop: 09/08/22 08:59 Last Admin: 08/10/22 08:29 Dose: 1 mls/min Influenza Virus Vaccine Quadrival (Do Not Administer Flu Vaccine) 1 each N/A PRN PRN PRN Reason: Notification Stop: 09/07/22 11:19 Levothyroxine Sodium (Levothyroxine Sodium 50 Mcg Tablet) 50 mcg PO [id number]@0630 [facility] Stop: 09/08/22 06:29 Last Admin: 08/09/22 06:21 Dose: 50 mcg Levothyroxine Sodium (Levothyroxine Sodium 75 Mcg Tablet) 75 mcg PO [id number]@0630 [facility] Stop: 09/07/22 11:19 Last Admin: 08/10/22 05:26 Dose: 75 mcg Lisinopril (Lisinopril 20 Mg Tab) 20 mg PO QAM [facility] Stop: 09/08/22 08:59 Last Admin: 08/10/22 08:28 Dose: 20 mg Lorazepam (Lorazepam 0.5 Mg Tab) 0.5 mg PO Q8H PRN PRN Reason: Sedation/Anxiety Stop: 09/07/22 11:19 Lorazepam (Lorazepam 2 Mg/1 Ml Vial) 0.5 mg IV Q8H PRN PRN Reason: Sedation/Anxiety Stop: 09/07/22 11:19 Magnesium Hydroxide (Magnesium Hydroxide Susp 30 Ml Udc) 30 ml PO Q24H PRN PRN Reason: Constipation Stop: 09/07/22 11:19 Melatonin (Melatonin 3 Mg Tab) 6 mg PO HS PRN PRN Reason: Sleep Stop: 09/07/22 11:51 Last Admin: 08/09/22 22:28 Dose: 6 mg Metoclopramide HCl (Metoclopramide Hcl Inj 5 Mg/Ml 2 Ml Vial) 10 mg IV Q6H PRN PRN Reason: Nausea &/or Vomiting Stop: 09/07/22 11:19 Multivitamins (Multivitamin Tab) [facility] [place] Stop: 09/08/22 08:59 Last Admin: 08/10/22 08:28 Dose: 1 tab Naloxone HCl (Naloxone Hcl 0.4 Mg/1 Ml Vial/Carp) 0.1 mg IV Q5M PRN PRN Reason: Oversedation/Resp depression Stop: 09/07/22 11:19 Ondansetron HCl (Ondansetron Inj 2 Mg/Ml 2 Ml Vial) 4 mg IV Q6H PRN PRN Reason: Nausea &/or Vomiting Stop: 09/07/22 11:19 Ondansetron HCl (Ondansetron 4 Mg Od Tab) 4 mg PO Q6H PRN PRN Reason: Nausea Stop: 09/07/22 11:19 Oxycodone HCl (Oxycodone Hcl Ir 5 Mg Tab (Immediate Release)) 5 - 10 mg PO Q4H PRN PRN Reason: Pain & Pre PT Stop: 08/22/22 11:19 Pneumococcal Polyvalent Vaccine (Do Not Administer Pneumococcal Vaccine) 1 each N/A PRN PRN PRN Reason: Notification Stop: 09/07/22 11:19 Senna/Docusate Sodium (Docusate Sodium/Senna 50/8.6mg Tab) 2 tab PO HS LUL Stop: 09/07/22 20:59 Last Admin: 08/09/22 22:29 Dose: 2 tab Sodium Biphosphate/Sodium Phosphate (Sod Phosphate/Sod Biphosphate Enema 132 Ml Btl) 132 ml TN ONE PRN PRN Reason: Constipation Stop: 09/07/22 11:19 Tramadol HCl (Tramadol Hcl 50 Mg Tablet) 50 - 100 mg PO Q4H PRN PRN Reason: Moderate-Severe pain & Pre PT Stop: 09/07/22 11:19
[2022-08-10] MEDS: CYANOCOBALAMIN (B-12) 500 MCG TABLET PO SCH (11:20)
--- NOTE | 2022-08-10 13:01 | Discharge Summary ---
Date of Service August 10, 2022 Admission HPI Per Admitting Provider This is a 72-year-old male who presents with chronic persistent back and leg pain after failing extensive course of nonoperative care is here for surgical intervention Principal Diagnosis Lumbar spinal stenosis with neurogenic claudication Discharge Data Allergies Allergy/AdvReac Type Severity Reaction Status Date / Time No Known Allergies Allergy Verified 08/08/22 06:31 Consultations 08/08/22 11:20 Consult Hospitalist Routine Procedures Performed Operation Date: 08/08/22 07:45 Actual Procedures p L2-L3 Decompression and Fusion, Application of Vitoss and I-Factor, Spinal Cord Monitoring(Not Applicable) - Alan Burton DO s L3-S1 Hardware Removal, (Not Applicable) - Alan Burton DO Ordered Studies 08/08/22 [place] lumbar spine 2-3V Routine Hospital Course (1) Spinal stenosis, lumbar region with neurogenic claudication: Patient 1 lumbar decompression fusion tolerated as well as taken to orthopedic for postop labor postop day 1 is up and ambulating progress postop day #2. Excellent strength tasting pain well controlled. Socially discharged home. He was discharged with his drain will follow-up in our office for removal in the next few days. Further instructions can be found the chart for further review. Total Time Total Time Spent Total Time Spent (In Minutes): 20 minutes Discharge Plan Discharge Items Patient Disposition: Home - Self-Care Reason For Visit: Spinal Stenosis, Lumbar Region with Neurogenic Cla Discharge Diagnosis: Lumbar spinal stenosis with neurogenic claudication Activity: As commented below Non-emergency contact: Primary Care Provider Call non-emergency contact if: you have any medication questions Follow-up/Referrals: Chun Frias MD [Primary Care Provider] - Diet: Regular Addtl Attending Provider Instructions: ACTIVITY RECOMMENDATIONS: SELF CARE INSTRUCTIONS AFTER THORACIC/LUMBAR FUSIONS 1. You may walk to your tolerance. It is good exercise for your legs and back. Expect some back and intermittent leg aches and pains. 2. You may perform "counter-top" level activities (make a sandwich, sonia with a project, etc.). 3. No bending or lifting of more than 10 pounds or back twisting of any nature (roll like a log when turning in bed). 4. You may ride in a car for 20-30 minutes at a time. No driving until after your first visit with your doctor. 5. Frequent changes of position and restricting sitting to 30 minutes at a time will help limit the amount of back spasms and stiffness you may experience. 6. You may discontinue the use of ambulatory aids (cane, crutches, etc.) once your strength and confidence allow. 7. You may sr. pricing analyst the shower and let water strike your incision when you arrive home at least once daily. Do not take a tub bath, sit in a hot tub or go into a swimming pool until after your first recheck in the office. SPECIAL CARE INSTRUCTIONS: VERY IMPORTANT TO READ AND REVIEW A. Your surgical incision has been closed with a cosmetic suture under the skin that will dissolve in about 6 weeks. In 14 days, you can use a pair of clean scissors and cut the suture that is left outside of the skin at the ends of your incision. 1. The small skin tapes can be removed 7 days after surgery if they have not fallen off by that point. 2. You may keep the wound open to air as much as possible to promote healing after post-op day number 5 unless told otherwise by your doctor. 3. If you think the wound looks like it is becoming infected (redness or worsening drainage) and/or you are experiencing fever, chill or worsening back pain and muscle spasms, contact the office so that we may ev aluate you as soon as possible. B. Complications are uncommon, but please contact us if you have any signs or symptoms of: 1. wound infection (fever higher than 102.5 degrees F, redness, separation of wound, drainage, or increasing pain from the incision) 2. blood clots in legs (pain, swelling, redness and warmth in legs) 3. urinary tract infection (fever higher than 102.5 degrees F, burning upon urination or increased frequency of urination) 4. nerve problems (inability to walk on your toes or heels, numbness, loss of bowel or bladder control) 5. any other symptoms that concern you C. Please call the office at if you have any concerns or questions about your operation or recovery. D. No smoking! Smoking drastically decreases the chance of a solid fusion. E. Do not take any anti-inflammatory medications (Indocin, Advil, Motrin, A spirin, Naprosyn, etc.) as these may inhibit the chance of a solid fusion. Tylenol is okay to take for pain. MANAGING PAIN AFTER SPINAL SURGERY 1. Narcotic medication is intended for short-term use and will be provided for surgical pain. Surgical pain usually lasts for a period of 4-6 weeks. Narcotic medication includes Percocet, Vicodin, Darvocet, Tylenol #3 or Lortab. 2. Longer-term pain is more appropriately treated with non-narcotic medication such as Tylenol ES. 3. Muscle spasm is not appropriately treated with narcotics. Muscle relaxers such as Soma, Flexeril or Skelaxin can be used along with Tylenol ES. 4. Remember that we all live with some "aches and pains". This is not unusual or uncommon after an injury or as we get older. a. Back pain is expected and may include muscle spasms for 4 to 6 weeks after surgery. The pain should gradually improve. If the pain worsens for no apparent reason, please contact the office. b. Intermittent leg pain may also be experienced and should not be concerned about unless it worsens for no apparent reason. If so, please contact the office. 5. We will provide appropriate medication within the normal guidelines of their prescribed use. We will also be very cautious and aware of potential abuse and extended duration of patients' medication needs. a. Pain medications are for your comfort and to assist with sleep and rest so that the tissue can heal. They are not provided in order to return to normal activity and should not be used through the day. To do so or worsening pain at night can result from ongoing tissue damage and development of tolerance to the prescribed medicine. 6. Please allow 2-3 days to process refills. Prescriptions will not be mailed but must be picked up at the office. FOLLOW UP VISIT: Keep your scheduled follow-up appointment. Any questions, please call the office at . Pending Studies at Discharge: No Stand-Alone Forms: [employer], Smoking Cessation Medications and DC Order Prescriptions: New tramadol 50 mg tablet 50 mg PO Q6H PRN (Reason: pain, moderate) Qty: 30 0RF oxycodone 5 mg tablet 5 mg PO DAILY PRN (Reason: pain) Qty: 30 0RF Continued lisinopril 20 mg tablet 20 mg PO QAM levothyroxine [Synthroid] 50 mcg Tablet 75 mcg PO UD Rx Instructions: M-W- coQ10 (ubiquinol) 200 mg Capsule 200 mg PO QPM cyanocobalamin (vitamin B-12) 1,000 mcg Capsule 1,000 mcg PO QDL atorvastatin 20 mg tablet 20 mg PO HS levothyroxine 50 mcg Tablet 50 mcg PO UD Rx Instructions: sat sun multivitamin Tablet 1 tab PO QAM gabapentin 300 mg Tablet 300 mg PO HS melatonin 5 mg Tablet 5 mg PO HS PRN (Reason: Sleep) omega-3 fatty acids Capsule See Rx Instructions .ROUTE .COMPLEX Rx Instructions: 1 capsule around lunchtime with food turmeric 1 tab PO DAILY Discharge Orders: Discharge Order (Routine); Ordered 08/10/22 Ordered By: Alan Burton Admission Data Admit Date/Time: 08/08/22 09:50 Attending Provider: Alan Burton Admit Provider: Alan Burton Primary Care Provider: Chun Frias Other Providers: Chanda Joseph ; Brandyn Maldonado ; Cassie Esparza
== END 2022-08-10 15:16 | disposition home or self-care (01) | DRG 455 ==
LOC: ASU 06:09 → 3E 09:50

== ENCOUNTER 2023-12-08 06:05 | Inpatient (IN) ==
--- NOTE | 2023-11-30 10:31 | Anesthesiology Consultation ---
Date of Service November 30, 2023 Assessment & Plan (1) Encounter for pre-operative examination: - Infectious disease screening: Per assessment on 11/30/23: No known recent infectious disease contacts or current infectious disease symptoms. - PCP visit (11/30/23): "Preop labs reviewed; Bmp grossly wnl- CKD G2 range.. Stable lymphocytosis, cbc otherwise grossly wnl, U/a ok.. Not on CPAP- difficulty in past.. No EKG or chest xray to review.. Medical clearance pending EKG/xray results.." - Patient acceptable risk for surgery pending final PCP clearance (Gail Kumari [facility]). Chart Review Chart Review: Acceptable Risk for Surgery and Patient NOT seen in Pre Admission Testing History Surgery Operation Date: 12/08/23 10:35 Proposed Procedures p T12-L2 Decompression and Fusion - Alan Burton DO Height/Weight Height: 6 ft 2 in Weight: 104.326 kg Allergies Allergy/AdvReac Type Severity Reaction Status Date / Time No Known Allergies Allergy Verified 11/30/23 09:31 Medications Home Medications Medication Instructions Recorded Confirmed Last Taken coQ10 (ubiquinol) 200 mg capsule 200 mg PO QDL 08/14/18 11/30/23 2 Weeks Ago ~07/25/22 cyanocobalamin (vitamin B-12) 1,000 mcg PO QDL 08/14/18 11/30/23 08/07/22 08:00 1,000 mcg capsule levothyroxine 50 mcg tablet 75 mcg PO UD 08/14/18 11/30/23 08/08/22 05:00 (Synthroid) atorvastatin 20 mg tablet 20 mg PO HS 12/01/21 11/30/23 08/07/22 22:00 gabapentin 300 mg tablet 300 mg PO HS 12/01/21 11/30/23 08/07/22 22:00 levothyroxine 50 mcg tablet 50 mcg PO UD 12/01/21 11/30/23 08/07/22 08:00 melatonin 5 mg tablet 10 mg PO HS PRN Sleep 12/01/21 11/30/23 08/07/22 22:00 multivitamin 1 tab PO QPM 12/01/21 11/30/23 08/07/22 08:00 lisinopril 20 mg tablet 20 mg PO QAM 06/27/22 11/30/23 08/07/22 08:00 omega-3 fatty acids 1 cap PO QDL 07/20/22 11/30/23 2 Weeks Ago ~07/25/22 tramadol 50 mg tablet 50 mg PO Q6H PRN pain, moderate 08/08/22 11/30/23 Unknown #30 tabs calcium carbonate 1,000 mg PO QAM 11/30/23 11/30/23 Unknown tamsulosin 0.4 mg capsule 0.4 mg PO HS 11/30/23 11/30/23 Unknown turmeric 400 mg capsule 400 mg PO QDL 11/30/23 11/30/23 Unknown venlafaxine 37.5 mg 37.5 mg PO QAM 11/30/23 11/30/23 Unknown capsule,extended release 24 hr Past Medical History Medical History Anxiety BPH with obstruction/lower urinary tract symptoms Chronic back pain CLL (chronic lymphocytic leukemia) Under surveillance No current treatment Degenerative disc disease Depression History of COVID-19 (07/2021) cough, congestion, fatigue > symptoms resolved History of nephrolithiasis HTN (hypertension) Hyperlipidemia Hypothyroidism PTSD (post-traumatic stress disorder) Sleep apnea CPAP Spinal stenosis, lumbar region with neurogenic claudication Past Family History Family History Other No family history of adverse response to anesthesia Past Surgical History Surgical History H/O parathyroidectomy (06/22/22) [facility] (done for thyroid nodule/lab dysfunction per patient) History of cataract surgery b/l History of eye surgery as a child History of hydrocelectomy (2021) Right scrotal hydrocelectomy x 2 History of wisdom tooth extraction S/P lumbar spine operation (2022) x2 2019 L3-S1 2022 L2-L3 S/P removal of thyroid nodule (06/22/22) [facility] (done for thyroid nodule/lab dysfunction per patient) S/P rotator cuff surgery (2020) right S/P ureteral stent placement (05/2020) cysto/ left stent/ lithotripsy Social History Smoking Status: Never smoker Do You Dip or Chew Tobacco: No Hx Alcohol Use: Yes Alcohol type: beer alcohol intake frequency: 0-2 drinks per day Alcohol Intake Frequency Comment: 1 beer occasionally in evening Hx Substance Use: No substance use type: does not use Lab Results Anesthesia Preop Results Results Anesthesia Widget: WBC 9.24 K/ul (4.8-10.8) 11/29/23 Hgb 14.2 g/dl (14.0-18.0) 11/29/23 Hct 41.4 % (42.0-52.0) L 11/29/23 Plt 171 K/uL (130-400) 11/29/23 Na 139 mmol/L (136-145) 11/29/23 K 4.1 mmol/L (3.5-5.1) 11/29/23 Cl 105 mmol/L (98-107) 11/29/23 CO2 29 mmol/L (21-32) 11/29/23 BUN 19 mg/dl (6-23) 11/29/23 Creat 1.07 mg/dl (0.6-1.4) 11/29/23 Glucose Level 91 mg/dl (70-99(Fasting)) 11/29/23 PT 10.9 Seconds (9.0-12.0) 11/29/23 PTT 29 Seconds (21-31) 11/29/23 INR 1.0 (0.9-1.1) 11/29/23 Urine Color Yellow 11/29/23 Urine Appearance Clear (Clear) 11/29/23 Urine pH 5.5 (4.5-7.5) 11/29/23 Urine Specific [place] 1.021 (1.000-1.030) 11/29/23 Urine Protein Negative (Negative) 11/29/23 Urine Glucose (UA) Negative (Negative) 11/29/23 Urine Ketones Negative (Negative) 11/29/23 Urine Blood Negative (Negative) 11/29/23 Urine Nitrite Negative (Negative) 11/29/23 Urine Bilirubin Negative (Negative) 11/29/23 Urine Urobilinogen Negative (Negative) 11/29/23 Urine Leukocyte Esterase Negative (Negative) 11/29/23 Blood Type A Positive 11/29/23 Antibody Screen NEGATIVE 11/29/23 Testing Electrocardiogram Date: 11/29/23 NSR at 61bpm. NS TWA. No significant change compared to 09/27/2021 per manager customer comparison. Chest X-Ray Date: 11/29/23 FINDINGS: Millimeter radiodense screw projects over the midline of the upper chest. Partially imaged lumbar spinal fusion hardware. Cardiac silhouette is normal. No pneumothorax or pleural effusion. The lungs appear clear. Spondylotic spurring of the spine. IMPRESSION: No acute process.
[2023-12-08] MEDS: CeleBREX 200 MG CAP PO SCH (06:58)
[2023-12-08] MEDS: ACETAMINOPHEN 500 MG TAB PO SCH (06:58)
[2023-12-08] MEDS: GABAPENTIN 300 MG CAP PO SCH ×2 (06:58→20:13)
[2023-12-08] MEDS: LR 60ML/HR IV SCH (06:58)
[2023-12-08] MEDS ORDERED: PROPOFOL IV EMULSION 10 MG/ML 20 ML VIAL IV ONE (07:00)
[2023-12-08] MEDS ORDERED: LIDOCAINE 2% 2 ML VIAL/AMP(20MG/ML) INFIL ONE (07:00)
[2023-12-08] MEDS ORDERED: ROCURONIUM BROMIDE 10 MG/ML 5 ML VIAL IV ONE ×3 (07:00→11:22)
[2023-12-08] MEDS ORDERED: MIDAZOLAM HCL 1 MG/ML 2ML VIAL ONE (07:00)
[2023-12-08] MEDS ORDERED: fentaNYL citrate PF 100 MCG/2 ML VIAL ONE ×2 (07:00→08:49)
[2023-12-08] MEDS: LR 15ML/HR IV SCH (07:25)
[2023-12-08] MEDS ORDERED: ePHEDrine sulfate 50 MG/ML AMP IV PRN (07:27)
[2023-12-08] MEDS ORDERED: ATROPINE SULFATE 0.1 MG/ML 10ML SYR IV PRN (07:27)
[2023-12-08] MEDS ORDERED: ONDANSETRON INJ 2 MG/ML 2 ML VIAL IV PRN ×2 (07:27→12:46)
--- NOTE | 2023-12-08 07:45 | History & Physical Bridge Note ---
Date of Service December 08, 2023 History & Physical Bridge Note I have examined the patient, reviewed the History & Physical and in the interval since the performance of the History & Physical I have noted the following changes of clinical significance: no changes noted
--- NOTE | 2023-12-08 07:46 | History & Physical Report ---
Date of Service December 08, 2023 Assessment & Plan (1) Neurogenic claudication due to lumbar spinal stenosis: Plan: T12-L2 decompression and fusion History of Present Illness Chief Complaint: Back and leg pain Primary Care Provider: Chun Frias MD This is a 73-year-old male who presents for chronic persistent back and leg pain a failed course of nonoperative care is here for surgical invention Allergies Allergy/AdvReac Type Severity Reaction Status Date / Time No Known Allergies Allergy Verified 12/08/23 06:53 Home Medications Medication Instructions Recorded Confirmed Type coQ10 (ubiquinol) 200 mg capsule 200 mg PO QDL 08/14/18 12/08/23 History cyanocobalamin (vitamin B-12) 1,000 mcg PO QDL 08/14/18 12/08/23 History 1,000 mcg capsule levothyroxine 50 mcg tablet 75 mcg PO UD 08/14/18 12/08/23 History (Synthroid) atorvastatin 20 mg tablet 20 mg PO HS 12/01/21 12/08/23 History gabapentin 300 mg tablet 300 mg PO HS 12/01/21 12/08/23 History levothyroxine 50 mcg tablet 50 mcg PO UD 12/01/21 12/08/23 History melatonin 5 mg tablet 10 mg PO HS PRN Sleep 12/01/21 12/08/23 History multivitamin 1 tab PO QPM 12/01/21 12/08/23 History lisinopril 20 mg tablet 20 mg PO QAM 06/27/22 12/08/23 History omega-3 fatty acids 1 cap PO QDL 07/20/22 12/08/23 History tramadol 50 mg tablet 50 mg PO Q6H PRN pain, moderate 08/08/22 12/08/23 Rx #30 tabs calcium carbonate 1,000 mg PO QAM 11/30/23 12/08/23 History tamsulosin 0.4 mg capsule 0.4 mg PO HS 11/30/23 12/08/23 History turmeric 400 mg capsule 400 mg PO QDL 11/30/23 12/08/23 History venlafaxine 37.5 mg 37.5 mg PO QAM 11/30/23 12/08/23 History capsule,extended release 24 hr Past Med/Surg History Problem List (Updated 12/08/23 @ 07:46 by Alan M Josephine, DO) Neurogenic claudication due to lumbar spinal stenosis Encounter for pre-operative examination HTN (hypertension) BPH with obstruction/lower urinary tract symptoms Chronic back pain Spinal stenosis Hyperlipidemia Medical History Anxiety BPH with obstruction/lower urinary tract symptoms Chronic back pain CLL (chronic lymphocytic leukemia) Under surveillance No current treatment Degenerative disc disease Depression History of COVID-19 (07/2021) cough, congestion, fatigue > symptoms resolved History of nephrolithiasis HTN (hypertension) Hyperlipidemia Hypothyroidism PTSD (post-traumatic stress disorder) Sleep apnea CPAP Spinal stenosis, lumbar region with neurogenic claudication Surgical History H/O parathyroidectomy (06/22/22) [facility] (done for thyroid nodule/lab dysfunction per patient) History of cataract surgery b/l History of eye surgery as a child History of hydrocelectomy (2021) Right scrotal hydrocelectomy x 2 History of wisdom tooth extraction S/P lumbar spine operation (2022) x2 2019 L3-S1 2022 L2-L3 S/P removal of thyroid nodule (06/22/22) [facility] (done for thyroid nodule/lab dysfunction per patient) S/P rotator cuff surgery (2020) right S/P ureteral stent placement (05/2020) cysto/ left stent/ lithotripsy Family History Other No family history of adverse response to anesthesia Social History Smoking Status: Never smoker Second Hand Exposure: No; Do You Dip or Chew Tobacco: No; Tobacco Cessation Education Requested by Patient: No Hx Alcohol Use: Yes Alcohol type: beer Hx Substance Use: No Preferred Language: Tajik Communication Ability: Effective Devops Solutions Architect Required: No Beliefs That Will Affect Care: None Current Living Situation: Alone Other Information That Helps Us Care for You: No Feels Safe at Home: Yes Safety Concerns: Feels Safe At This Time Assistive Devices: CPAP, Denture - Upper and Glasses Assistive Devices Comment: partial upper Physical Exam Physical Exam: Patient is alert and oriented Heart regular in rhythm Lungs clear Results & Data Results & Data Vital Signs (Past 12 Hours) Vital Signs Temp Pulse Resp BP Pulse Ox O2 Del Method 12/08/23 06:40 36.5 C 56 L 20 150/73 H 99 Room Air
[2023-12-08] MEDS: ceFAZolin 2000MG 2,000 MG/15 ML SYR IV SCH ×2 (07:53→16:16)
[2023-12-08] MEDS ORDERED: KETAMINE HCL 10MG/ML SYR ONE (08:02)
[2023-12-08] MEDS ORDERED: DEXAMETHASONE SOD INJ 4 MG/ML VIAL ONE (08:26)
[2023-12-08] MEDS ORDERED: DROPERIDOL 5 MG/2 ML VIAL ONE (08:26)
[2023-12-08] MEDS ORDERED: ONDANSETRON INJ 2 MG/ML 2 ML VIAL ONE (08:26)
[2023-12-08] MEDS: BUPIVACAINE/EPINEPHRINE 0.25% 1:200,000 30 ML VIAL ONE (08:31)
[2023-12-08] MEDS ORDERED: SUGAMMADEX SODIUM 200 MG/2 ML VIAL IV ONE (10:07)
[2023-12-08] MEDS: ceFAZolin 330 MG/ML 1 GM VIAL ONE (10:08)
[2023-12-08] MEDS: FLOSEAL HEMOSTATIC MATRIX 10ML TOP ONE (10:08)
--- NOTE | 2023-12-08 10:26 | Operative Report ---
Post Operative Report Pre & Post Diagnosis Operation Date: 12/08/23 07:45 Pre-Op Diagnosis: Neurogenic Claudication due to Lumbar Spinal Stenosis Lumbar disc herniation with radiculopathy Post-Op Diagnosis: Same I identified the patient and participated in the time-out.: Yes Procedure Operation Date: 12/08/23 07:45 Actual procedure #1 lumbar decompression with bilateral male facetectomies and foraminotomies T12-L1 L1-L2. #2 posterior spinal fusion T12-L2. #3 posterior instrumentation T12-L1 with connectors at L2-L3. #4 interbody fusion L1-2. #5 placement spiral 12 x 26 mm at L1-2. #6 placement locally harvested morselized autograft and posterior gutters per #7 placement is collagen sponge combined with Koros in the posterior lateral gutters and os design interbody space. #8 placement of versa wrap on the exposed dura. Surgeon Alan Burton, DO Cnc Mill And Lathe Operator Jeyson Crook Estimated Blood Loss 350 Findings Consistent with Post-Op Diagnosis Specimens None Indications This is a 73-year-old male known to me the presents with his diagnosis after failing course of nonoperative care is here for surgical invention. Description of Procedure Patient was met with identified informed consent obtained. Patient was then taken to the operative suite underwent ablation placed in a prone position on the Juan table top of the Rafi frame. All bony promises well-padded eyes inspected to ensure no external pressure placed upon them. This point the thoracolumbar spine was prepped and draped in normal sterile fashion. Sharp dissection with the assistance of Bovie cautery performed down to and exposing the lamina transverse processes of T12-L1 and the instrumentation at L2-L3. I then performed complete laminectomy of L1 including bilateral medial facetectomies foraminotomies addressing massive disc herniation on the right for complete decompression. Also performed partial laminectomy of T12 with bilateral male facetectomies for complete decompression of the traversing roots. Pedicle screws placed in T12-L1 and a connector attached to the vimal between L2- L3. And then by way of transforaminal approach on the right a complete discectomy of L1-L2 was performed endplates guided to subcortical bleeding bone and a 12 x 26 mm spiral cage filled with os design bone graft tapped in position. Proper size rods were then contoured placed and locked in position bilaterally. The transverse processes of T12 L1-L2 burred to subcortical bleeding bone. Infuse collagen sponge, with Koros and local autograft placed in the posterior gutters. Versa wrap placed over the exposed dura. 15 round ISAIAS drain inserted. The incision was then closed with 1 Vicryl the fascia 2-0 Vicryl subcutaneously and 4 Monocryl for final skin closure. Steri-Strips sterile dressing placed. Patient waken taken to PACU stable condition. Please note spinal cord monitoring was utilized at the procedure no changes noted. Jeysno Crook was present at the entire procedure and all the patient positioning complex portion of the surgery and possible closure. Im ordering 20 grams of Triple Hamilton Collagen Powder (Manifest [id number]) to treat an incision wound that was caused by a spine procedure. The incision is approximately 2 cm(W) x 4 cm(L) into the joint (D) in size and is a full thickness wound. Triple Hamilton collagen comes in 1 gram packets so 20 packets were ordered. Given the size of the wound, with light to moderate exudate I chose to order a 20 day supply. The patient will be provided instructions for proper application of the collagen wound kit. The patient will be asked to apply the collagen powder daily and then cover it with sterile dressings dispensed. Collagen was selected as I expect the collagen to attract monocytes and fibroblasts, act as a sacrificial substrate for MMPs, and ultimately proved a matrix for tissue and vessel growth. The collagen will act as a primary dressing in this scenario. It is medically necessary for proper healing of these wounds to improve bioavailability and contact with each wound surface, this is also to help pre vent infection of wounds and promote healing ultimately leading to a better healing outcome and limit the risk of infection. I attest to the content of the Intraoperative Record and any orders documented therein. Any exceptions are noted below.
--- NOTE | 2023-12-08 11:35 | Fluoroscopy Report ---
INTRAOPERATIVE RADIOGRAPHS CLINICAL HISTORY: Thoracolumbar spinal fusion surgery. Fluoro time: 19 seconds Ka,r: 14.12 mGy FINDINGS: 2 spot fluoroscopic views of the lumbar spine are presented. There is evidence of multileve l multilevel thoracolumbar laminectomy and posterior fusion. Discectomy change is seen at at least 2 levels. The operative levels cannot be delineated on the provided images. Interpedicular screws are i n place. The orthopedic hardware appears intact. IMPRESSION: Intraoperative images from thoracolumbar spinal fusion. Electronically signed by: Jarad Hunter M.D. 12/08/2023 11:33 AM
[2023-12-08] MEDS: HYDROmorphone INJ 2 MG/ML SYR/VIAL IV PRN (12:00)
[2023-12-08] MEDS ORDERED: MAGNESIUM HYDROXIDE SUSP 30 ML UDC PO PRN (12:46)
[2023-12-08] MEDS ORDERED: diphenhydrAMINE Capsule 25 MG CAP PO PRN (12:46)
[2023-12-08] MEDS ORDERED: ONDANSETRON 4 MG OD TAB PO PRN (12:46)
[2023-12-08] MEDS ORDERED: HYDROmorphone INJ 0.5 MG/0.5 ML SYR IV PRN (12:46)
[2023-12-08] MEDS ORDERED: hydrOXYzine HCl 25 MG TAB PO PRN (12:46)
[2023-12-08] MEDS ORDERED: LORazepam 0.5 MG in SYRINGE 0.25 ML IV PRN (12:46)
[2023-12-08] MEDS ORDERED: HYDROmorphone INJ 1 MG/ML SYRINGE IV PRN (12:46)
[2023-12-08] MEDS ORDERED: NALOXONE HCL 0.4 MG/1 ML VIAL/CARP IV PRN (12:46)
[2023-12-08] MEDS ORDERED: DO NOT ADMINISTER PNEUMOCOCCAL VACCINE PRN (12:46)
[2023-12-08] MEDS ORDERED: FAMOTIDINE 20 MG TAB PO PRN (12:46)
[2023-12-08] MEDS ORDERED: PROMETHAZINE 12.5 MG/50.5 ML BAG IV PRN (12:46)
[2023-12-08] MEDS ORDERED: LORazepam 0.5 MG TAB PO PRN (12:46)
[2023-12-08] MEDS ORDERED: DO NOT ADMINISTER FLU VACCINE PRN (12:46)
[2023-12-08] MEDS ORDERED: SOD PHOSPHATE/SOD BIPHOSPHATE ENEMA 132 ML BTL PR PRN (12:46)
[2023-12-08] MEDS ORDERED: bisacodyL 10 MG SUPP PR PRN (12:46)
[2023-12-08] MEDS ORDERED: oxyCODONE HCL IR 5 MG TAB (IMMEDIATE RELEASE) PO PRN (12:46)
[2023-12-08] MEDS ORDERED: METOCLOPRAMIDE HCL INJ 5 MG/ML 2 ML VIAL IV PRN (12:46)
[2023-12-08] MEDS ORDERED: NON-FORMULARY MEDICATION (Turmeric 400 mg Capsule) PO SCH (12:46)
[2023-12-08] MEDS ORDERED: ACETAMINOPHEN 1,000 MG/100 ML VIAL IV PRN (12:46)
[2023-12-08] MEDS ORDERED: traMADol HCL 50 MG TABLET PO PRN (12:46)
[2023-12-08] MEDS ORDERED: NON-FORMULARY MEDICATION (Coq10 (Ubiquinol) 200 mg Capsule) PO SCH (12:46)
[2023-12-08] MEDS ORDERED: ACETAMINOPHEN 500 MG TAB PO PRN (12:46)
--- NOTE | 2023-12-08 13:10 | Anesthesiology Progress Note ---
Date of Service December 08, 2023 Anesthesia Post Procedure Vital Signs Vital Signs: Temp Pulse Pulse Resp BP BP Pulse Ox 12/08/23 12:58 36.3 C L 78 18 124/69 93 12/08/23 12:05 36.4 C L 66 15 108/57 L 96 12/08/23 11:50 65 12 99/49 L 97 12/08/23 11:35 64 14 101/52 L 97 12/08/23 11:25 36.4 C L 65 15 100/47 L 94 12/08/23 11:15 68 15 118/62 94 12/08/23 11:05 76 17 128/70 94 12/08/23 10:55 77 17 100/63 94 12/08/23 10:46 36.3 C L 64 17 112/62 95 12/08/23 06:40 36.5 C 56 L 20 150/73 H 99 O2 Del Method O2 Flow Rate 12/08/23 12:58 Nasal Cannula 2 12/08/23 12:05 Nasal Cannula 3 12/08/23 11:50 Nasal Cannula 3 12/08/23 11:35 Nasal Cannula 3 12/08/23 11:25 Nasal Cannula 3 12/08/23 11:15 Oxymask 5 12/08/23 11:05 Oxymask 5 12/08/23 10:55 Oxymask 5 12/08/23 10:46 Oxymask 5 12/08/23 06:40 Room Air Transfer of Care Handoff Completed per policy Notes Mental Status: alert / awake / arousable and participated in evaluation Nausea / Vomiting: adequately controlled Pain: adequately controlled Airway Patency, RR, SpO2: stable & adequate BP & HR: stable & adequate Hydration State: stable & adequate Anesthetic Complications: no major complications apparent and Pt Satisfied with anesthetic care
[2023-12-08] MEDS: LACTATED RINGER'S 1,000 ML IV SCH (13:28)
--- NOTE | 2023-12-08 14:06 | Hospitalist Consultation ---
Date of Consultation December 08, 2023 Assessment & Plan (1) Neurogenic claudication due to lumbar spinal stenosis: (2) Chronic back pain: (3) Spinal stenosis: - POD # [address] Burton - Pain management, bowel regimen and DVT ppx per the primary team - PT/OT consults, pt is planning on outpatient therapy - Follow am CBC to monitor for acute blood loss, last hgb of 14.7 from medical clearance on 07/11/23, follow am labs - ISAIAS drain and urinary catheter to be removed by primary service. - Will monitor O2 sats, will require CPAP placed if any nursing concerns/hypoxia overnight. (4) Hyperlipidemia: - May continue statin therapy, coenzyme Q10 (5) HTN (hypertension): - Cont lisinopril - Chronic, stable - Follows outpatient with Dr. Velasco with cardiology and was cleared for surgical procedure (6) BPH with obstruction/lower urinary tract symptoms: - Cont flomax (7) Hypothyroidism: - Cont levothyroxine alternating doses of 50 and 75 mcg as per med rec which I reviewed with him personally. (8) CLL (chronic lymphocytic leukemia): - Not currently on treatment, follows with outpt oncology DVT ppx:teds, scds Lines: PIV x 1, ISAIAS drain CODE: FULL Dispo: From home, likely to remain in the hospital x 1-2 days Thank you for involving us in the care of Mr. Wright. Please do not hesitate to call with questions or concerns. At this time medicine service will follow along. Supervising Physician Co-Signing Physician Notes Patient was seen and examined at bedside as medical consult status post lumbar surgery. POD 0. Patient reports improvement in his bilateral radicular signs and symptoms, reports operative site pain under control, denies febrile illness or cough in the last 1 week. Patient doing well postoperatively. Continue with pain management, bowel regimen, PT/OT when able, DVT prophylaxis per primary. Continue other home medications as able. Monitor for acute blood loss anemia. Labs in AM. On exam: GENERAL: Alert and oriented x3. NAD, on RA. HEENT: No pallor, no icterus. Pupils equal, round and reactive to light. Oral mucosa moist. NECK: No JVD, no neck masses. HEART: S1 and S2 heard. Regular rate and rhythm. No murmur, no gallop. RESPIRATORY SYSTEM: Normal AP diameter. No accessory muscle use. No wheezing, no crackles. ABDOMEN: Soft, bowel sounds present, nontender, no distention. CENTRAL NERVOUS SYSTEM: No facial droop. Speech is clear. Obeys simple commands. Moves extremities. EXTREMITIES: No edema, no erythema seen. Lower back dressing without soakage. ISAIAS drain with moderate serosanguineous collection noted. Distal neurovascular status WNL x BLE. I have seen and examined the patient and have discussed the case with the provider above. I agree with the assessment and plan as stated. History of Present Illness Reason for Consultation: Medical management Requesting Physician: Dr. Burton Attending Physician: Alan Burton, DO History of Present Illness This is a 73 yo M with PMHX of lumbar disc herniation with radiculopathy and neurogenic claudication due to lumbar spinal stenosis, CLL, HTN, HLD, hy pothyroidism, sleep apnea on CPAP, anxiety, PTSD, BPH, who presents for elective lumbar spinal decompression fusion by Dr. Burton involving T11- L3. POD # 0. Pt has previously had back surgery for L2-L3 decompression and L3-S1 hardware removal by Dr. Burton in July 2022. Pt is doing well, denies any acute pain or complaints. Last BM was yesterday. Family was in to visit during my conversation with him. He is doing very well and requesting normal consistency diet for dinner. Patient reports that he wears CPAP however did not bring his machine from home, he states that he has mild CPAP and does not want to wear it here if possible. Allergies Allergy/AdvReac Type Severity Reaction Status Date / Time No Known Allergies Allergy Verified 12/08/23 06:53 Home Medications Medication Instructions Recorded Confirmed Type coQ10 (ubiquinol) 200 mg capsule 200 mg PO QDL 08/14/18 12/08/23 History cyanocobalamin (vitamin B-12) 1,000 mcg PO QDL 08/14/18 12/08/23 History 1,000 mcg capsule levothyroxine 50 mcg tablet 75 mcg PO UD 08/14/18 12/08/23 History (Synthroid) atorvastatin 20 mg tablet 20 mg PO HS 12/01/21 12/08/23 History gabapentin 300 mg tablet 300 mg PO HS 12/01/21 12/08/23 History levothyroxine 50 mcg tablet 50 mcg PO UD 12/01/21 12/08/23 History melatonin 5 mg tablet 10 mg PO HS PRN Sleep 12/01/21 12/08/23 History multivitamin 1 tab PO QPM 12/01/21 12/08/23 History lisinopril 20 mg tablet 20 mg PO QAM 06/27/22 12/08/23 History omega-3 fatty acids 1 cap PO QDL 07/20/22 12/08/23 History tramadol 50 mg tablet 50 mg PO Q6H PRN pain, moderate 08/08/22 12/08/23 Rx #30 tabs calcium carbonate 1,000 mg PO QAM 11/30/23 12/08/23 History tamsulosin 0.4 mg capsule 0.4 mg PO HS 11/30/23 12/08/23 History turmeric 400 mg capsule 400 mg PO QDL 11/30/23 12/08/23 History venlafaxine 37.5 mg 37.5 mg PO QAM 11/30/23 12/08/23 History capsule,extended release 24 hr Patient History Medical History Anxiety BPH with obstruction/lower urinary tract symptoms Chronic back pain CLL (chronic lymphocytic leukemia) Under surveillance No current treatment Degenerative disc disease Depression History of COVID-19 (07/2021) cough, congestion, fatigue > symptoms resolved History of nephrolithiasis HTN (hypertension) Hyperlipidemia Hypothyroidism PTSD (post-traumatic stress disorder) Sleep apnea CPAP Spinal stenosis, lumbar region with neurogenic claudication Surgical History H/O parathyroidectomy (06/22/22) [facility] (done for thyroid nodule/lab dysfunction per patient) History of cataract surgery b/l History of eye surgery as a child History of hydrocelectomy (2021) Right scrotal hydrocelectomy x 2 History of wisdom tooth extraction S/P lumbar spine operation (2022) x2 2019 L3-S1 2022 L2-L3 S/P removal of thyroid nodule (06/22/22) [facility] (done for thyroid nodule/lab dysfunction per patient) S/P rotator cuff surgery (2020) right S/P ureteral stent placement (05/2020) cysto/ left stent/ lithotripsy Family History Other No family history of adverse response to anesthesia Social History Smoking Status: Never smoker Second Hand Exposure: No; Do You Dip or Chew Tobacco: No; Tobacco Cessation Education Requested by Patient: No Hx Alcohol Use: Yes Alcohol type: beer Hx Substance Use: No Preferred Language: Scottish Communication Ability: Effective Electrical And Instrument Engineer Required: No Beliefs That Will Affect Care: None Current Living Situation: Alone Other Information That Helps Us Care for You: No Feels Safe at Home: Yes Safety Concerns: Feels Safe At This Time Assistive Devices: CPAP, Denture - Upper and Glasses Assistive Devices Comment: partial upper Review of Systems Review of Systems: Constitutional: No fever, sweats or chills Eyes: No diplopia, no worsening or blurred vision ENT: normal hearing, no trouble swallowing Respiratory: No cough, sputum, dyspnea at rest or on exertion, does not wear supplemental O2, wears CPAP HS Cardiovascular: No chest pain, tightness or palpitations Abdomen: No pain, nausea, vomiting, diarrhea or constipation Musculoskeletal: No joint pain, calf pain, swelling Neurologic: No weakness, numbness/tingling, or balance problems Psychiatric: No anxiety or depression Skin: No rash or itch Physical Exam Physical Exam: General: awake, alert, no apparent distress, white male, BMI 30.8 Head: Normocephalic, atraumatic ENT: PERRL, EOMI, no pharyngeal exudate, mucous membranes moist Chest: Clear to auscultation, on 2 L via NC, no adventitious breath sounds Cardiac: Regular rate and rhythm, no murmur, no JVD, normal peripheral pulses, good capillary refill Back: Dressing c/d/i, ISAIAS drain with serosanginous outs Abdominal: NABS x 4 quadrants, soft, nondistended, nontender to palpation, no rebound or guarding Extremities: Normal inspection, no peripheral edema or erythema, calfs nontender to palpation Psych: Normal mood and affect Neuro: AAO x 3, strength intact bilaterally and rated 5/5, no motor deficits, speech is clear, no peripheral sensory deficits Results & Data Results & Data Vital Signs (Past 12 Hours) Vital Signs Temp Pulse Pulse Resp BP BP Pulse Ox 12/08/23 13:24 36.5 C 85 20 128/64 93 12/08/23 12:58 36.3 C L 78 18 124/69 93 12/08/23 12:25 36.4 C L 87 18 111/54 L 94 12/08/23 12:25 12/08/23 12:05 36.4 C L 66 15 108/57 L 96 12/08/23 11:50 65 12 99/49 L 97 12/08/23 11:35 64 14 101/52 L 97 12/08/23 11:25 36.4 C L 65 15 100/47 L 94 12/08/23 11:15 68 15 118/62 94 12/08/23 11:05 76 17 128/70 94 12/08/23 10:55 77 17 100/63 94 12/08/23 10:46 36.3 C L 64 17 112/62 95 12/08/23 06:40 36.5 C 56 L 20 150/73 H 99 O2 Del Method O2 Flow Rate 12/08/23 13:24 Nasal Cannula 2 12/08/23 12:58 Nasal Cannula 2 12/08/23 12:25 Nasal Cannula 2 12/08/23 12:25 Nasal Cannula 2 12/08/23 12:05 Nasal Cannula 3 12/08/23 11:50 Nasal Cannula 3 12/08/23 11:35 Nasal Cannula 3 12/08/23 11:25 Nasal Cannula 3 12/08/23 11:15 Oxymask 5 12/08/23 11:05 Oxymask 5 12/08/23 10:55 Oxymask 5 12/08/23 10:46 Oxymask 5 12/08/23 06:40 Room Air Laboratory Results 12/08/23 06:44 Blood Type A Positive Antibody Screen NEGATIVE Crossmatch See Detail
[2023-12-08 14:25] VITALS: RESP 16
[2023-12-08] MEDS: ATORVASTATIN 20 MG TAB PO SCH (20:13)
[2023-12-08] MEDS: TAMSULOSIN HCL 0.4 MG CAP PO SCH (20:13)
[2023-12-08] MEDS: DOCUSATE SODIUM/SENNA 50/8.6MG TAB PO SCH (20:13)
[2023-12-08] MEDS: MELATONIN 3 MG TAB PO PRN (22:02)
[2023-12-08] MEDS: COUGH DROP (SUGAR FREE) LOZ 24 LOZ/1 BOX BUCCAL ONE (23:44)
[2023-12-09] MEDS: ALUMINUM/MAGNESIUM SUSP 30 ML UDC PO PRN (00:38)
[2023-12-09] MEDS: POLYETHYLENE (MIRALAX) 17 GM PACK PO SCH (05:41)
[2023-12-09] MEDS: LEVOTHYROXINE SODIUM 50 MCG TABLET PO SCH (05:41)
[2023-12-09 07:19] LABS: Hematocrit (blood only) 36.3 % (42.0-52.0); Hemoglobin 12.4 g/dl (14.0-18.0); Mean Corpuscular Hemoglobin 31.6 pg (25.0-34.0); Mean Corpuscular Hgb Conc 34.2 g/dL (32.0-36.0); Mean Corpuscular Volume 92.4 fL (80.0-100.0); Mean Platelet Volume 9.6 fL (9.4-12.4); Platelet Count 164 K/uL (130-400); RDW Coefficient of Variation 12.2 % (11.5-14.5); RDW Standard Deviation 41.9 fL (36.4-46.3); Red Blood Count 3.93 M/uL (4.70-6.10); White Blood Count 12.93 K/ul (4.8-10.8)
[2023-12-09 07:38] LABS: BUN Creatinine Ratio 16.7 (10-20); Calcium 8.7 mg/dl (8.6-10.3); Est GFR (African American) 78.5 ml/min; Est GFR (Non-African American) 67.7 ml/min; Potassium 4.8 mmol/L (3.5-5.1)
[2023-12-09 08:40] LABS: Basophils # (auto) 0.01 K/uL (0.00-0.20); Basophils % (auto) 0.1 %; Eosinophils # (auto) 0.01 K/uL (0.00-0.50); Eosinophils % (auto) 0.1 %; Immature Granulocytes # (auto) 0.04 K/uL (0.01-0.20); Immature Granulocytes % (auto) 0.3 %; Lymphocytes # (auto) 5.55 K/uL (1.20-3.40); Lymphocytes % (auto) 42.9 %; Monocytes # (auto) 0.63 K/uL (0.11-0.59); Monocytes % (auto) 4.9 %; Neutrophils # (auto) 6.69 K/uL (1.40-6.50); Neutrophils % (auto) 51.7 %
[2023-12-09] MEDS: VENLAFAXINE HCL XR 37.5 MG CAPXR PO SCH (08:41)
[2023-12-09] MEDS: CALCIUM CARBONATE 1250MG TAB PO SCH (08:41)
[2023-12-09] MEDS: dexAMETHasone 6 MG in SYRINGE 0 ML IV SCH (08:42)
[2023-12-09] MEDS ORDERED: lisinopril 20 MG TAB PO SCH (09:00)
--- NOTE | 2023-12-09 09:38 | Orthopedic Progress Note ---
Date of Service December 09, 2023 Assessment & Plan (1) Neurogenic claudication due to lumbar spinal stenosis: Plan: Today we will initiate physical therapy monitor his ISAIAS output discontinue his Aguilera catheter and possible discharge home the next few days. Admission and Anticipated Discharge Date Admission Date: December 08, 2023 Subjective Patient's back pain is controlled leg symptoms markedly improved. Physical Exam Physical Exam: Patient is in the chair at bedside appears comfortable. Is good strength testing. Results & Data Vital Signs (Past 12 Hours) Vital Signs Temp Pulse Resp BP Pulse Ox O2 Del Method 12/09/23 08:27 36.5 C 72 16 113/68 98 Room Air 12/09/23 04:30 36.4 C L 78 16 102/53 L 91 Room Air 12/08/23 23:51 36.4 C L 70 16 129/72 95 Room Air
[2023-12-09] MEDS: CYANOCOBALAMIN (B-12) 500 MCG TABLET PO SCH (12:03)
--- NOTE | 2023-12-09 13:59 | Hospitalist Progress Note ---
Date of Service December 09, 2023 Assessment & Plan (1) Neurogenic claudication due to lumbar spinal stenosis: (2) Chronic back pain: (3) Spinal stenosis: Plan: Neurogenic Claudication due to Lumbar Spinal Stenosis Lumbar disc herniation with radiculopathy S/P lumbar decompression, fusion surgery by Dr. Burton on 12/08/2023. Monitor for postop anemia Continue wound care, DVT prophylaxis per primary team Pain is controlled Bowel regimen to prevent constipation Continue PT OT as able Leukocytosis Likely due to steroids (4) Hyperlipidemia: Plan: Continue atorvastatin (5) HTN (hypertension): Plan: BP relatively low Hold lisinopril for now Monitor BP closely - (6) BPH with obstruction/lower urinary tract symptoms: Plan: - Continue flomax Monitor for any urinary retention (7) Hypothyroidism: Plan: Continue home dose of levothyroxine (8) CLL (chronic lymphocytic leukemia): Plan: - Not currently on treatment, follows with outpt oncology DVT Px: As per primary team CODE STATUS: FULL CODE Admission and Anticipated Discharge Date Admission Date: December 08, 2023 Subjective Patient is seen and examined at bedside Back pain at surgical site is controlled Denies any nausea, vomiting, chest pain, dyspnea, abdominal pain No other complaints Review of Systems Review of Systems: All systems reviewed & are unremarkable except as noted in Subjective Physical Exam Physical Exam: Physical Exam: Vitals signs as noted above General Appearance:Moderately built and nourished, no apparent distress Head: normocephalic, Atraumatic Eyes: normal inspection, EOMI Neck: supple, Trachea midline Respiratory/Chest: Normal breath sounds, CTA, No accessory muscle use Cardiovascular: S1, S2, No murmur Abdomen/GI:Soft, Non tender, Bowel sounds present Back: Surgical site in dressing,+ drain Extremities/Musculoskeletal:normal inspection, no edema Neurologic/Psych:AAOX3, grossly no focal neurological deficits Skin: normal color, warm Results & Data Results & Data Vital Signs (Past 12 Hours) Vital Signs Temp Pulse Resp BP Pulse Ox O2 Del Method 12/09/23 08:27 36.5 C 72 16 113/68 98 Room Air 12/09/23 04:30 36.4 C L 78 16 102/53 L 91 Room Air Laboratory Results Short CBC 12/09/23 Range/Units 06:45 WBC 12.93 H (4.8-10.8) K/ul Hgb 12.4 L (14.0-18.0) g/dl Hct 36.3 L (42.0-52.0) % Plt Count 164 (130-400) K/uL BMP 12/09/23 06:45 Sodium 142 Potassium 4.8 Chloride 108 H Carbon Dioxide 29 BUN 18 Creatinine 1.08 Glucose 154 H Calcium 8.7
[2023-12-10 07:16] LABS: Hematocrit (blood only) 35.6 % (42.0-52.0); Hemoglobin 11.8 g/dl (14.0-18.0); Mean Corpuscular Hemoglobin 31.3 pg (25.0-34.0); Mean Corpuscular Hgb Conc 33.1 g/dL (32.0-36.0); Mean Corpuscular Volume 94.4 fL (80.0-100.0); Mean Platelet Volume 9.6 fL (9.4-12.4); Platelet Count 149 K/uL (130-400); RDW Coefficient of Variation 12.6 % (11.5-14.5); RDW Standard Deviation 43.6 fL (36.4-46.3); Red Blood Count 3.77 M/uL (4.70-6.10); White Blood Count 13.15 K/ul (4.8-10.8)
[2023-12-10 07:35] LABS: BUN Creatinine Ratio 21.6 (10-20); Calcium 8.8 mg/dl (8.6-10.3); Est GFR (African American) 89.4 ml/min; Est GFR (Non-African American) 77.1 ml/min; Potassium 4.2 mmol/L (3.5-5.1)
[2023-12-10 07:37] VITALS: PULSE 64; TEMP 97.7; O2SAT 96
--- NOTE | 2023-12-10 10:49 | Hospitalist Progress Note ---
Date of Service December 10, 2023 Assessment & Plan (1) Neurogenic claudication due to lumbar spinal stenosis: (2) Chronic back pain: (3) Spinal stenosis: Plan: Neurogenic Claudication due to Lumbar Spinal Stenosis Lumbar disc herniation with radiculopathy S/P lumbar decompression, fusion surgery by Dr. Burton on 12/08/2023. Expected postop acute blood loss anemia Continue wound care, DVT prophylaxis per primary team Pain is controlled Bowel regimen to prevent constipation Continue PT OT as able No indication for blood transfusion Advised to follow-up with PCP in 1 week on discharge Leukocytosis Likely due to steroids and CLL No obvious source of infection Monitor CBC (4) Hyperlipidemia: Plan: Continue atorvastatin (5) HTN (hypertension): Plan: Blood pressure better Resume lisinopril Monitor BP - (6) BPH with obstruction/lower urinary tract symptoms: Plan: - Continue flomax Monitor for any urinary retention Urinating with no issues currently (7) Hypothyroidism: Plan: Continue home dose of levothyroxine (8) CLL (chronic lymphocytic leukemia): Plan: - Not currently on treatment, follows with outpt oncology DVT Px: As per primary team CODE STATUS: FULL CODE Admission and Anticipated Discharge Date Admission Date: December 08, 2023 Subjective Patient is seen and examined at bedside States feeling a lot better today Back pain is well-controlled Ambulated in hallway with no issues per patient Denies any chest pain, dyspnea, nausea, vomiting, abdominal pain Review of Systems Review of Systems: All systems reviewed & are unremarkable except as noted in Subjective Physical Exam Physical Exam: Physical Exam: Vitals signs as noted above General Appearance:Moderately built and nourished, no apparent distress Head: normocephalic, Atraumatic Eyes: normal inspection, EOMI Neck: supple, Trachea midline Respiratory/Chest: Normal breath sounds, CTA, No accessory muscle use Cardiovascular: S1, S2, No murmur Abdomen/GI:Soft, Non tender, Bowel sounds present Back: Surgical site in dressing,+ drain Extremities/Musculoskeletal:normal inspection, no edema Neurologic/Psych:AAOX3, grossly no focal neurological deficits Skin: normal color, warm Results & Data Results & Data Vital Signs (Past 12 Hours) Vital Signs Temp Pulse Resp BP Pulse Ox O2 Del Method 12/10/23 07:36 36.5 C 64 16 126/72 96 Room Air Laboratory Results Short CBC 12/10/23 Range/Units 05:56 WBC 13.15 H (4.8-10.8) K/ul Hgb 11.8 L (14.0-18.0) g/dl Hct 35.6 L (42.0-52.0) % Plt Count 149 (130-400) K/uL [facility] 12/10/23 05:55 Sodium 141 Potassium 4.2 Chloride 106 Carbon Dioxide 32 BUN 21 Creatinine 0.97 Glucose 106 H Calcium 8.8
--- NOTE | 2023-12-10 10:49 | Discharge Summary ---
Date of Service December 10, 2023 Admission HPI Per Admitting Provider This is a 73-year-old male who presents for chronic persistent back and leg pain a failed course of nonoperative care is here for surgical invention Principal Diagnosis lumbar stenosis Discharge Data Allergies Allergy/AdvReac Type Severity Reaction Status Date / Time No Known Allergies Allergy Verified 12/08/23 06:53 Consultations 12/08/23 12:46 Consult Hospitalist Routine Procedures Performed Operation Date: 12/08/23 07:45 Actual Procedures p T12-L2 Decompression and Fusion, Spinal Cord Monitoring(Not Applicable) - Keyla Burton DO Ordered Studies 12/08/23 07:45 [place] lumbar spine 2-3V Routine Hospital Course (1) Neurogenic claudication due to lumbar spinal stenosis: Patient underwent lumbar fusion. Did well post op. Excellent strength. Will dc home with drain. Total Time Total Time Spent Total Time Spent (In Minutes): 20 minutes Discharge Plan Discharge Items Patient Disposition: Home - Self-Care Reason For Visit: Lumbar Disc Herniation with Radiculopathy Discharge Diagnosis: Lumbar discrimination with radiculopathy Activity: As commented below Non-emergency contact: Primary Care Provider Call non-emergency contact if: you have any medication questions Follow-up/Referrals: Chun Frias MD [Primary Care Provider] - Diet: Regular Addtl Attending Provider Instructions: ACTIVITY RECOMMENDATIONS: SELF CARE INSTRUCTIONS AFTER THORACIC/LUMBAR FUSIONS 1. You may walk to your tolerance. It is good exercise for your legs and back. Expect some back and intermittent leg aches and pains. 2. You may perform "counter-top" level activities (make a sandwich, sonia with a project, etc.). 3. No bending or lifting of more than 10 pounds or back twisting of any nature (roll like a log when turning in bed). 4. You may ride in a car for 20-30 minutes at a time. No driving until after your first visit with your doctor. 5. Frequent changes of position and restricting sitting to 30 minutes at a time will help limit the amount of back spasms and stiffness you may experience. 6. You may discontinue the use of ambulatory aids (cane, crutches, etc.) once your strength and confidence allow. 7. You may underwriting support specialist the shower and let water strike your incision when you arrive home at least once daily. Do not take a tub bath, sit in a hot tub or go into a swimming pool until after your first recheck in the office. SPECIAL CARE INSTRUCTIONS: VERY IMPORTANT TO READ AND REVIEW A. Your surgical incision has been closed with a cosmetic suture under the skin that will dissolve in about 6 weeks. In 14 days, you can use a pair of clean scissors and cut the suture that is left outside of the skin at the ends of your incision. 1. The small skin tapes can be removed 7 days after surgery if they have not fallen off by that point. 2. You may keep the wound open to air as much as possible to promote healing after post-op day number 5 unless told otherwise by your doctor. 3. If you think the wound looks like it is becoming infected (redness or worsening drainage) and/or you are experiencing fever, chill or worsening back pain and muscle spasms, contact the office so that we may evaluate you as soon as possible. B. Complications are uncommon, but please contact us if you have any signs or symptoms of: 1. wound infection (fever higher than 102.5 degrees F, redness, separation of wound, drainage, or increasing pain from the incision) 2. blood clots in legs (pain, swelling, redness and warmth in legs) 3. urinary tract infection (fever higher than 102.5 degrees F, burning upon urination or increased frequency of urination) 4. nerve problems (inability to walk on your toes or heels, numbness, loss of bowel or bladder control) 5. any other symptoms that concern you C. Please call the office at if you have any concerns or questions about your operation or recovery. D. No smoking! Smoking drastically decreases the chance of a solid fusion. E. Do not take any anti-inflammatory medications (Indocin, Advil, Motrin, Aspirin, Naprosyn, etc.) as these may inhibit the chance of a solid fusion. Tylenol is okay to take for pain. MANAGING PAIN AFTER SPINAL SURGERY 1. Narcotic medication is intended for short-term use and will be provided for surgical pain. Surgical pain usually lasts for a period of 4-6 weeks. Narcotic medication includes Percocet, Vicodin, Darvocet, Tylenol #3 or Lortab. 2. Longer-term pain is more appropriately treated with non-narcotic medication such as Tylenol ES. 3. Muscle spasm is not appropriately treated with narcotics. Muscle relaxers such as Soma, Flexeril or Skelaxin can be used along with Tylenol ES. 4. Remember that we all live with some "aches and pains". This is not unusual or uncommon after an injury or as we get older. a. Back pain is expected and may include muscle spasms for 4 to 6 weeks after surgery. The pain should gradually improve. If the pain worsens for no apparent reason, please contact the office. b. Intermittent leg pain may also be experienced and should not be concerned about unless it worsens for no apparent reason. If so, please contact the office. 5. We will provide appropriate medication within the normal guidelines of their prescribed use. We will also be very cautious and aware of potential abuse and extended duration of patients' medication needs. a. Pain medications are for your comfort and to assist with sleep and rest so that the tissue can heal. They are not provided in order to return to normal activity and should not be used through the day. To do so or worsening pain at night can result from ongoing tissue damage and development of tolerance to the prescribed medicine. 6. Please allow 2-3 days to process refills. Prescriptions will not be mailed but must be picked up at the office. FOLLOW UP VISIT: Keep your scheduled follow-up appointment. Any questions, please call the office at . Pending Studies at Discharge: No Stand-Alone Forms: My [facility] [employer], Smoking Cessation Medications and DC Order Prescriptions: New tramadol 50 mg tablet 50 mg PO Q6H PRN (Reason: pain, moderate) Qty: 30 0RF oxycodone 5 mg tablet 5 mg PO Q6H PRN (Reason: pain) Qty: 30 0RF Continued lisinopril 20 mg tablet 20 mg PO QAM levothyroxine [Synthroid] 50 mcg Tablet 75 mcg PO UD Rx Instructions: - coQ10 (ubiquinol) 200 mg Capsule 200 mg PO QDL cyanocobalamin (vitamin B-12) 1,000 mcg Capsule 1,000 mcg PO QDL atorvastatin 20 mg tablet 20 mg PO HS levothyroxine 50 mcg Tablet 50 mcg PO UD Rx Instructions: sat sun multivitamin Tablet 1 tab PO QPM gabapentin 300 mg Tablet 300 mg PO HS melatonin 5 mg Tablet 10 mg PO HS PRN (Reason: Sleep) omega-3 fatty acids Capsule 1 cap PO QDL Rx Instructions: 1 capsule around lunchtime with food tramadol 50 mg tablet 50 mg PO Q6H PRN (Reason: pain, moderate) Qty: 30 0RF venlafaxine 37.5 mg Capsule,Extended Release 24hr 37.5 mg PO QAM tamsulosin 0.4 mg Capsule 0.4 mg PO HS turmeric 400 mg Capsule 400 mg PO QDL calcium carbonate [Tums 500] 500 mg calcium (1,250 mg) Tablet,Chewable 1,000 mg PO QAM Discharge Orders: Discharge Order (Routine); Ordered 12/10/23 Ordered By: Alan Burton Admission Data Admit Date/Time: 12/08/23 10:30 Attending Provider: Alan Burton Admit Provider: Alan Burton Primary Care Provider: Chun Frias Other Providers: Chanda Joseph
[2023-12-10 11:54] VITALS: BP 150/73
[2023-12-11] MEDS ORDERED: LEVOTHYROXINE SODIUM 75 MCG TABLET PO SCH (06:30)
== END 2023-12-10 13:16 | disposition home or self-care (01) | DRG 454 ==
LOC: ASU 06:05 → 3E 10:30